=== PATIENT | male | born 1965 | race Caucasian/White ===

== ENCOUNTER 2024-09-14 02:05 | Emergency (ER) | payer MEDICAID, SELFPAY ==
[2024-09-14 02:06] VITALS: BMI 29.8
[2024-09-14 02:14] VITALS: BP 123/74; PULSE 90; RESP 19; TEMP 37.2; O2SAT 98
[2024-09-14] MEDS: HYDROcodone/APAP 5/325 TABLET 1 TAB PO (02:29)
[2024-09-14] MEDS: DEXAMETHASONE SOD PHOS INJ 10 MG/ML VIAL PO (02:30)
--- NOTE | 2024-09-14 05:48 | PD.EDUPEX ---
Upper Extremity Injury RME/HPI General Chief Complaint: General Adult/Misc Complain Stated Complaint: RIGHT HAND /ARM PAIN Time Seen by Provider: 09/14/24 02:18 Arrival date/time: 09/14/24 02:05 58M with A-fib, HFrEF 35-40%, CABG, CAD, DM2, low back pain and stage 4 CKD presents to ED with several weeks of R elbow swelling and pain w/o fall/trauma. Limitations: no limitations Related Data Home Medications ?Medication ?Instructions ?Recorded ?Confirmed linagliptin 5 mg tablet (Tradjenta) 5 mg PO QDAY 10/19/20 07/04/23 clopidogrel 75 mg tablet 75 mg PO QDAY 07/04/23 09/19/23 gabapentin 300 mg capsule 300 mg PO TID 07/04/23 09/19/23 gemfibrozil 600 mg tablet 600 mg PO BID 07/04/23 09/19/23 hydralazine 25 mg tablet 25 mg PO TID 07/04/23 09/19/23 isosorbide dinitrate 5 mg tablet 5 mg PO BID 07/04/23 09/19/23 tamsulosin 0.4 mg capsule 0.4 mg PO QDAY 07/04/23 09/19/23 apixaban 5 mg tablet (Eliquis) 5 mg PO BID 09/19/23 09/19/23 Previous Rx's ?Medication ?Instructions ?Recorded aspirin 81 mg tablet,delayed 81 mg PO QDAY #30 tabs 12/23/18 release (Aspir-Low) hydrocodone 10 mg-acetaminophen 1 tab PO Q6H PRN pain #20 tabs 04/04/19 325 mg tablet ([place]) cyclobenzaprine 5 mg tablet 5 mg PO QHSPRN PRN muscle spasm 09/13/23 #10 tabs lidocaine 5 % topical patch 1 patch topical QDAY #15 ea 09/13/23 (Lidoderm) insulin detemir U-100 100 unit/mL 30 unit (0.3 mL) subcut QDAY 30 09/23/23 (3 mL) subcutaneous pen (Levemir days #9 mL FlexPen) insulin lispro 100 unit/mL 8 unit (0.08 mL) subcut TIDWM #15 09/24/23 subcutaneous pen (Humalog KwikPen mL (U-100) Insulin) furosemide 40 mg tablet (Lasix) 40 mg PO QAM #3 tabs 02/18/24 hydrocodone 5 mg-acetaminophen 325 1 tab PO BID PRN pain #7 tabs 04/11/24 mg tablet Allergies Allergy/AdvReac Type Severity Reaction Status Date / Time clonidine Allergy Severe SWELLING Verified 07/02/23 17:51 nut - unspecified Allergy Severe Swelling Verified 02/07/23 18:35 Review of Systems Review of Systems Systems Reviewed: All systems reviewed, normal except as documented Constitutional Constitutional: Reports system reviewed and no additional complaints, except as documented, Denies fever(s) and Denies headache(s) ENT Ears, Nose, Mouth, and Throat: Denies disequilibrium and Denies headache(s) Cardiovascular Cardiovascular: Reports system reviewed and no additional complaints, except as documented, Denies chest pain and Denies dyspnea Respiratory Respiratory: Reports system reviewed and no additional complaints, except as documented, Denies cough and Denies dyspnea Gastrointestinal Gastrointestinal: Reports system reviewed and no additional complaints, except as documented, Denies abdominal pain, Denies nausea and Denies vomiting Musculoskeletal Musculoskeletal: Reports as per HPI, Reports arthralgias and Reports joint swelling Neurologic Neurologic: Reports system reviewed and no additional complaints, except as documented, Denies confusion, Denies disequilibrium and Denies headache(s) Psychiatric Psychiatric: Denies confusion Past Medical History Past Medical History NEUROLOGIC: Positive Meningitis; Negative Neurological Disorders or Seizures CARDIAC: Positive Cardiac Disorders, Myocardial Infarction, Atrial Fibrillation, Coronary Artery Disease, Hypercholesterolemia and Hypertension; Negative Congestive Heart Failure RESPIRATORY: Positive Pneumonia; Negative Chronic Obstructive Pulmonary Disease (COPD) or Asthma GASTROINTESTINAL: Positive Gastrointestinal Bleed; Negative Gastrointestinal Disorders GENITOURINARY: Positive Genitourinary Disorders and Kidney Stones; Negative Renal Disease MUSCULOSKELETAL: Positive Musculoskeletal Disorders, Degenerative Disk Disease and Osteomyelitis ENDOCRINE: Positive Endocrine Disorders and Diabetes Mellitus Type 2; Negative Diabetes Mellitus Type 1 HEMATOLOGIC: Negative Blood Disorders or Sickle Cell Disease OTHER HISTORY: Positive MRSA; Negative Hospitalization, Autoimmune Disease, Down Syndrome, Developmental Delay, Shingles, Falls, Blood Transfusions, Blood Transfusion Reaction or Anesthesia Reactions Family History FAMILY HISTORY: Positive Family Cancer; Negative Family Cardiac Disorders Surgical History SURGICAL: Positive Cardiac Surgery, Open Heart Surgery, Coronary Artery Bypass Graft and Pacemaker (RIGHT CHEST) Social History SMOKING STATUS: Never smoker SECOND HAND EXPOSURE: Yes SUBSTANCE USE: marijuana, crack/cocaine and methamphetamine ED Exam General Limitations: Present no limitations General appearance: Present alert and in no apparent distress Head Head exam: Present atraumatic Eye Eye exam: Present normal appearance, PERRL and EOMI ENT ENT exam: Present normal exam, normal oropharynx and mucous membranes moist Neck Neck exam: Present normal inspection, full ROM and trachea midline Chest Chest inspection: Present normal inspection and symmetric chest wall rise Respiratory Respiratory exam: Present normal lung sounds bilaterally Cardiovascular Cardiovascular exam: Present regular rate, normal rhythm and normal heart sounds Abdominal Exam Abdominal exam: Present soft and normal bowel sounds Extremities Exam Extremities exam: Present full ROM Expanded Upper Extremity Exam Elbow exam: Present full ROM (R) and swelling Back Exam Back exam: Present normal inspection and full ROM Neurological Exam Neurological exam: Present alert, oriented X3 and CN II-XII intact Psychiatric Psychiatric exam: Present normal affect and normal mood Skin Skin exam: Present warm, dry, intact and normal color Course Quality Measures none Orders Category Date Time Status william wrap [Splint / Immobilizer] STAT Care 09/14/24 02:19 Completed Dexamethasone Inj [Decadron Inj] Med 09/14/24 02:19 Discontinued 10 mg PO X1 ONE HYDROcodone*/APAP 5/325 [[place] 5/325] Med 09/14/24 02:19 Discontinued 1 tab PO X1 ONE Vital Signs Vital signs: Vital Signs Temperature 99.0 F 09/14/24 02:14 Pulse Rate 90 09/14/24 02:14 Respiratory Rate 19 09/14/24 02:14 Blood Pressure 123/74 09/14/24 02:14 Pulse Oximetry (%) 98 09/14/24 02:14 Oxygen Delivery Method Room Air 09/14/24 02:14 O2 at 98% on RA and WNLs Extremity Injury MDM Narrative MDM Narrative:: 58M with A-fib, HFrEF 35-40%, CABG, CAD, DM2, low back pain and stage 4 CKD presents to ED with several weeks of R elbow swelling and pain w/o fall/trauma. Physical exam reveals fluid-filled sac around R elbow. ROM intact, but painful. No redness. Patient is afebrile, calm, and alert. Likely elbow bursitis. Given WILLIAM, meds, and licensed professional counselor. Patient data External records reviewed:: [facility] previous records Clinical information provided by:: patient Social determinants that could affect healthcare access:: none Patient has the following chronic illnesses:: A-fib, HFrEF 35-40%, CABG, CAD, DM2, low back pain and stage 4 CKD How is presenting disease/condition affected by chronic disease/condition?: exacerbated by Evaluation data The following diagnostics were reviewed and interpreted by me:: other (specify) (none) Lab and/or radiology exams considered but not ordered:: not ordered Interpretation Summary: n/a Medications / Prescriptions Medications or Prescriptions considered but not ordered:: ordered Medication administrations:: Medication Administration History Discontinued Medications Hydrocodone Bitart/Acetaminophen (Hydrocodone/Apap 5/325 Tablet) 1 tab PO X1 ONE Stop: 09/14/24 02:20 Last Admin: 09/14/24 02:29 Dose: 1 tab Documented By: CVL Dexamethasone Sodium Phosphate (Dexamethasone Sod Phos Inj 10 Mg/Ml Vial) 10 mg PO X1 ONE Stop: 09/14/24 02:20 Last Admin: 09/14/24 02:30 Dose: 10 mg Documented By: CVL above Consultations Consultation(s) initiated? (list below): No Diagnosis Upper Extremity Injury Differential Diagnosis: sprain and strain of wrist, fracture of wrist, finger sprain, dislocation of finger, Colles' fracture, fracture of hand, dislocation of shoulder, fracture of humerus, fracture of clavicle and other (elbow bursitis) Most likely diagnosis given after review of the tests above:: elbow bursitis Admission Indicated Admission indicated?: not indicated Admission Request Was there a request for admission?: No Disposition Plan Disposition Plan: Discharge Discharge Attestation Discharge Attestation: The patient and all family members were given an opportunity to ask questions and understood the discharge instructions. Discharge instructions specifically effects, indications for sooner follow up or return to the emergency department, and the expected course of current diagnosis. Patient condition: Stable Discharge Plan Plan Patient Disposition: HOME (Self Care) Disposition Comment: Stable Prescriptions/Referrals Prescriptions/Med Rec: No Action hydrocodone-acetaminophen [[place]] 10-325 mg tablet 1 tab PO Q6H MDD 4g Acetaminophen PRN (Reason: pain) Qty: 20 0RF Tradjenta 5 mg Tablet 5 mg PO QDAY aspirin [Aspir-Low] 81 mg Tablet,Delayed Release (Dr/Ec) 81 mg PO QDAY Qty: 30 0RF gabapentin 300 mg capsule 300 mg PO TID Patient Comments: TAKE 1 CAPSULE BY MOUTH THREE TIMES A DAY FOR 30 DAYS hydralazine 25 mg tablet 25 mg PO TID Patient Comments: TAKE 1 TABLET BY MOUTH THREE TIMES A DAY WITH FOOD FOR 30 DAYS isosorbide dinitrate 5 mg tablet 5 mg PO BID Patient Comments: TAKE 1 TABLET BY MOUTH TWICE A DAY FOR 30 DAYS tamsulosin 0.4 mg capsule 0.4 mg PO QDAY Patient Comments: TAKE 1 CAPSULE BY MOUTH EVERY DAY FOR 30 DAYS gemfibrozil 600 mg tablet 600 mg PO BID Patient Comments: TAKE 1 TABLET BY MOUTH TWICE A DAY clopidogrel 75 mg tablet 75 mg PO QDAY Patient Comments: TAKE 1 TABLET BY MOUTH EVERY DAY FOR 30 DAYS lidocaine [Lidoderm] 5 % adhesive patch,medicated 1 patch topical QDAY Qty: 15 0RF Rx Instructions: leave on most painful area for up to 12 hrs cyclobenzaprine 5 mg tablet 5 mg PO QHSPRN PRN (Reason: muscle spasm) Qty: 10 0RF Eliquis 5 mg Tablet 5 mg PO BID Levemir FlexPen 100 unit/mL (3 mL) insulin pen 30 unit SUBCUT QDAY 30 Days Qty: 9 0RF Patient Comments: INJECT 20 UNITS SUBCUTANEOUSLY ONCE A DAY insulin lispro [Humalog KwikPen Insulin] 100 unit/mL insulin pen 8 unit subcut TIDWM Qty: 15 0RF furosemide [Lasix] 40 mg tablet 40 mg PO QAM Qty: 3 0RF hydrocodone-acetaminophen 5-325 mg tablet 1 tab PO BID MDD 2 PRN (Reason: pain) Qty: 7 0RF Problem List Clinical Impression: Bursitis of elbow Patient/Caregiver Discharge Instructions Education Materials: ED Bursitis Additional Instructions: Please follow-up with PCP within 24-48 hours and return immediately if symptoms worsen. If problem persists, recommend outpatient PT and/or MRI follow-up. In the meantime, rest, use ice/heat, and/or compression. Print Language: Iranian Stand Alone Forms: Patient Portal Info Letter PA/PHOTOGRAPHIC EQUIPMENT ASSEMBLER Supervising Physician PA/ADRY Supervising Physician: Dr. Wiggins
== END 2024-09-14 02:35 | disposition home or self-care (01) ==
PROVIDERS: Emergency Provider Emergency Medicine; PCP Family Medicine
DX: M70.31 Other bursitis of elbow, right elbow (principal)
CPT/HCPCS: 99283; J1100; A9270

== ENCOUNTER 2024-09-30 01:15 | Emergency (ER) | payer MEDICAID, SELFPAY ==
[2024-09-30 01:16] VITALS: BMI 26.9
[2024-09-30 01:33] VITALS: BP 129/89; PULSE 95; RESP 18; TEMP 36.8; O2SAT 97
--- NOTE | 2024-09-30 01:44 | PD.EDCHEST ---
ED Chest Pain RME/HPI General Chief Complaint: Chest Pain Stated Complaint: CHEST PAIN X5DAYS Time Seen by Provider: 09/30/24 01:34 Arrival date/time: 09/30/24 01:15 RME / HPI RME / HPI narrative: Dr. Wahl?s Main ED Evaluation: 58yo male with A-fib with RVR, HFrEF 35 to 40% s/p ICD placement, cardiac arrest, coronary artery disease s/p CABG, DMII, CKD, BPH, HTN presents to the ED for a chief complaint of chest pain x 1 week. Patient states his pain has been constant, describing it as stabbing and pressure in nature. Patient states his pain worsens when he takes a deep breath. Patient reports an associated productive cough, chills, runny nose, and fatigue. He denies any fever, sweating or any other associated symptoms. He states his granddaughter at home is sick. He did not get his flu shot this year. He is a former tobacco smoker, reporting he quit in 2019. Related Data Home Medications ?Medication ?Instructions ?Recorded ?Confirmed linagliptin 5 mg tablet (Tradjenta) 5 mg PO QDAY 10/19/20 07/04/23 clopidogrel 75 mg tablet 75 mg PO QDAY 07/04/23 09/19/23 gabapentin 300 mg capsule 300 mg PO TID 07/04/23 09/19/23 gemfibrozil 600 mg tablet 600 mg PO BID 07/04/23 09/19/23 hydralazine 25 mg tablet 25 mg PO TID 07/04/23 09/19/23 isosorbide dinitrate 5 mg tablet 5 mg PO BID 07/04/23 09/19/23 tamsulosin 0.4 mg capsule 0.4 mg PO QDAY 07/04/23 09/19/23 apixaban 5 mg tablet (Eliquis) 5 mg PO BID 09/19/23 09/19/23 Previous Rx's ?Medication ?Instructions ?Recorded aspirin 81 mg tablet,delayed 81 mg PO QDAY #30 tabs 12/23/18 release (Aspir-Low) hydrocodone 10 mg-acetaminophen 1 tab PO Q6H PRN pain #20 tabs 04/04/19 325 mg tablet ([place]) cyclobenzaprine 5 mg tablet 5 mg PO QHSPRN PRN muscle spasm 09/13/23 #10 tabs lidocaine 5 % topical patch 1 patch topical QDAY #15 ea 09/13/23 (Lidoderm) insulin detemir U-100 100 unit/mL 30 unit (0.3 mL) subcut QDAY 30 09/23/23 (3 mL) subcutaneous pen (Levemir days #9 mL FlexPen) insulin lispro 100 unit/mL 8 unit (0.08 mL) subcut TIDWM #15 09/24/23 subcutaneous pen (Humalog KwikPen mL (U-100) Insulin) furosemide 40 mg tablet (Lasix) 40 mg PO QAM #3 tabs 02/18/24 hydrocodone 5 mg-acetaminophen 325 1 tab PO BID PRN pain #7 tabs 04/11/24 mg tablet amoxicillin 875 mg-potassium 1 tab PO Q12H #10 tabs 09/30/24 clavulanate 125 mg tablet Allergies Allergy/AdvReac Type Severity Reaction Status Date / Time clonidine Allergy Severe SWELLING Verified 09/30/24 01:20 nut - unspecified Allergy Severe Swelling Verified 09/30/24 01:20 Review of Systems Review of Systems Systems Reviewed: All systems reviewed, normal except as documented Narrative Review of Systems: Gen: No fever, + chills, no weight loss, + fatigue EYES: No discharge, no visual changes, no pain HEENT: No ear pain, no congestion, no sore throat, + runny nose PULM: No shortness of breath, no cough, no congestion CV: + chest pain, no dyspnea on exertion, no palpitations GI: No nausea, no vomiting, no diarrhea, no pain, no constipation : No frequency, no urgency, no dysuria Musc/skel: No joint pain, no back pain Skin: No rash. Warm and dry. Psyc: No hallucinations, no depression Heme/Lymph: No easy bleeding or bruising tendencies Neuro: No weakness, no headache ED Exam Narrative Physical exam: GENERAL APPEARANCE: AxOx4, generally well-appearing, no acute distress. HEENT: NC, AT. MMM. EOMI, clear conjunctiva, oropharynx clear. NECK: Supple without lymphadenopathy. No stiffness or restricted ROM. HEART: Normal rate and regular rhythm, normal S1/S1, no m/r/g LUNGS: CTAB, moving air well. No crackles or wheezes are heard. ABDOMEN: Soft, nontender, nondistended with good bowel sounds heard. BACK: No midline C/T/L spine pain or deformity, No CVAT, no obvious deformity. EXTREMITIES: Without cyanosis, clubbing or edema. MUSCULOSKELETAL: FROM of all major joints, no chest tenderness NEUROLOGICAL: Grossly nonfocal. Alert and oriented, moving all 4 extremities. CN not formally tested but appear grossly intact. Observed to ambulate with normal gait. Skin: Warm and dry without any rash. Course Course Course Narrative: CXR is ordered for determining the etiology of chest pain. Quality Measures none Orders Category Date Time Status EKG (ED ONLY) *Do not use* NOW Care 09/30/24 02:10 Completed EKG (ED Only) Stat Exams 09/30/24 02:10 Draft XR chest 2V Stat Exams 09/30/24 02:10 Taken CBC Stat Lab 09/30/24 02:39 Completed CMP [Comprehensive Metabolic Panel] Stat Lab 09/30/24 02:39 Completed Troponin I Stat Lab 09/30/24 02:39 Completed Troponin I Stat Lab 09/30/24 04:52 Completed Vital Signs Vital signs: Vital Signs Temperature 98.3 F 09/30/24 01:33 Pulse Rate 95 09/30/24 01:33 Respiratory Rate 18 09/30/24 01:33 Blood Pressure 129/89 H 09/30/24 01:33 Pulse Oximetry (%) 97 09/30/24 01:33 Oxygen Delivery Method Room Air 09/30/24 01:33 Pulse ox is 97% on room air, which is normal according to my interpretation. Chest Pain MDM Narrative MDM Narrative:: Scribe Attestation: 09/30/24 Ena Vincent am scribing for and in the presence of Dr. Wahl. Patient data External records reviewed:: [facility] previous records (Per chart review, patient was seen here on 02/18/24 for CHF.) Clinical information provided by:: patient Social determinants that could affect healthcare access:: substance use (history of tobacco use, quit in 2019) Patient has the following chronic illnesses:: A-fib with RVR, HFrEF 35 to 40% s/p ICD placement, cardiac arrest, coronary artery disease s/p CABG, DMII, CKD, BPH, HTN How is presenting disease/condition affected by chronic disease/condition?: exacerbated by Evaluation data The following diagnostics were reviewed and interpreted by me:: lab results, radiology exam(s) and EKG tracing(s) Lab and/or radiology exams considered but not ordered:: none Interpretation Summary: CBC is normal, Glucose is 290, Creatinine is elevated at 1.9 (which is chronic), initial and repeat troponins are normal, according to my interpretation. CXR shows an early left lower lobe infiltrate, pacemaker in place, no bony abnormalities, no other acute cardiopulmonary findings, according to my interpretation. EKG done at 0221, aFib, rate of 96, widened QRS, IVCD pattern, no STEMI, according to my interpretation. Medications / Prescriptions Medications or Prescriptions considered but not ordered:: none Medication administrations:: see above, if any Consultations Consultation(s) initiated? (list below): No Diagnosis Chest Pain Differential Diagnosis: pneumothorax and other (pneumonia, pleurisy, acute bronchitis) Most likely diagnosis given after review of the tests above:: see below Admission Indicated Admission indicated?: not indicated Explain why admission is indicated or not indicated:: Admission criteria not met. Admission Request Was there a request for admission?: No Disposition Plan Disposition Plan: Discharge Discharge Attestation Discharge Attestation: The patient and all family members were given an opportunity to ask questions and understood the discharge instructions. Discharge instructions specifically effects, indications for sooner follow up or return to the emergency department, and the expected course of current diagnosis. Patient condition: Stable Discharge Plan Plan Patient Disposition: HOME (Self Care) Prescriptions/Referrals Prescriptions/Med Rec: New amoxicillin-pot clavulanate 875-125 mg tablet 1 tab PO Q12H Qty: 10 0RF No Action hydrocodone-acetaminophen [[place]] 10-325 mg tablet 1 tab PO Q6H MDD 4g Acetaminophen PRN (Reason: pain) Qty: 20 0RF Tradjenta 5 mg Tablet 5 mg PO QDAY aspirin [Aspir-Low] 81 mg Tablet,Delayed Release (Dr/Ec) 81 mg PO QDAY Qty: 30 0RF gabapentin 300 mg capsule 300 mg PO TID Patient Comments: TAKE 1 CAPSULE BY MOUTH THREE TIMES A DAY FOR 30 DAYS hydralazine 25 mg tablet 25 mg PO TID Patient Comments: TAKE 1 TABLET BY MOUTH THREE TIMES A DAY WITH FOOD FOR 30 DAYS isosorbide dinitrate 5 mg tablet 5 mg PO BID Patient Comments: TAKE 1 TABLET BY MOUTH TWICE A DAY FOR 30 DAYS tamsulosin 0.4 mg capsule 0.4 mg PO QDAY Patient Comments: TAKE 1 CAPSULE BY MOUTH EVERY DAY FOR 30 DAYS gemfibrozil 600 mg tablet 600 mg PO BID Patient Comments: TAKE 1 TABLET BY MOUTH TWICE A DAY clopidogrel 75 mg tablet 75 mg PO QDAY Patient Comments: TAKE 1 TABLET BY MOUTH EVERY DAY FOR 30 DAYS lidocaine [Lidoderm] 5 % adhesive patch,medicated 1 patch topical QDAY Qty: 15 0RF Rx Instructions: leave on most painful area for up to 12 hrs cyclobenzaprine 5 mg tablet 5 mg PO QHSPRN PRN (Reason: muscle spasm) Qty: 10 0RF Eliquis 5 mg Tablet 5 mg PO BID Levemir FlexPen 100 unit/mL (3 mL) insulin pen 30 unit SUBCUT QDAY 30 Days Qty: 9 0RF Patient Comments: INJECT 20 UNITS SUBCUTANEOUSLY ONCE A DAY insulin lispro [Humalog KwikPen Insulin] 100 unit/mL insulin pen 8 unit subcut TIDWM Qty: 15 0RF furosemide [Lasix] 40 mg tablet 40 mg PO QAM Qty: 3 0RF hydrocodone-acetaminophen 5-325 mg tablet 1 tab PO BID MDD 2 PRN (Reason: pain) Qty: 7 0RF Referrals: Pacheco (PCP),MD Rancho [Primary Care Provider] - In 1 week Problem List Clinical Impression: Pneumonia, Chest pain Patient/Caregiver Discharge Instructions Education Materials: ED Chest Pain, Uncertain Cause, ED Pneumonia (Adult) Additional Instructions: Follow-up with your primary care doctor in 5 to 7 days if symptoms or not improving. You can return to the emergency department sooner if symptoms worsen or if you notice any new, concerning issues. Print Language: Tamazight Stand Alone Forms: [employer]i Award Info., Patient Portal Info Letter
--- NOTE | 2024-09-30 01:56 | PC.NURSE ---
verified with provider if ekg was needed. per ER provider no ekg was indicated at this time
--- NOTE | 2024-09-30 02:10 | XR_ITS ---
Examination: PA lateral chest 2 views Technique: Upright PA lateral chest 2 views Exam date and time: September 30, 2024 0212 hrs. Comparison February 18, 2024 Indications: Chest pain beginning 5 days ago. Findings: Mild enlargement cardiac contour. CABG. Mild vascular congestion. No lobar pneumonia or pulmonary edema. A stable position cardiac leads Impression: Mild enlargement cardiac contour Mild vascular congestion
--- NOTE | 2024-09-30 02:10 | EKG_ITS ---
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1965 Requested By: Tejinder Wahl Order Number: [id number] Reading MD: Tejinder Wahl Measurements Intervals [place] Rate: 96 P: [place]: QRS: 114 QRSD: 174 T: -37 QT: 411 QTc: 520 Interpretive Statements ATRIAL FIBRILLATION WITH ABERRANT CONDUCTION OR VENTRICULAR PREMATURE COMPLEXES MARKED RIGHT AXIS DEVIATION [QRS AXIS > 100] RIGHT BUNDLE BRANCH BLOCK AND POSSIBLE RIGHT VENTRICULAR HYPERTROPHY [RBBB, 1.5 mV R IN V1, RAD] PROBABLE SEPTAL MYOCARDIAL INFARCTION , OF INDETERMINATE AGE [35 ms Q WAVE IN V1/V2] ST DEVIATION AND MARKED T-WAVE ABNORMALITY, CONSIDER ANTERIOR ISCHEMIA [-0.5+ mV T WAVE IN V3/V4] Compared to ECG 07/02/2023 18:03:37 Right-axis deviation now present Myocardial infarct finding now present T-wave abnormality now present Possible ischemia now present Left-axis deviation no longer present Intraventricular conduction delay no longer present ST (T wave) deviation no longer present /store/S0/[id number].pdf
[2024-09-30 03:19] LABS: Basophils # (Auto) 0.1 Thou/mm3 (0.0-0.2); Basophils % (Auto) 1 % (0-2.5); Eosinophils # (Auto) 0.3 Thou/mm3 (0.0-0.5); Eosinophils % (Auto) 2 % (0-10); Hematocrit 39.5 % (41.0-53.0); Hemoglobin 13.7 g/dL (13.5-16.0); Immature Granulocytes % (Auto) 0 % (0-0); Immature Granulocytes Auto 0.02 Thou/mm3 (0.00-0.00); Lymphocytes # (Auto) 2.4 Thou/mm3 (1.0-4.8); Lymphocytes % (Auto) 23 % (10-50); Mean Corpuscular HGB Conc 34.7 g/dl (31.0-37.0); Mean Corpuscular Hemoglobin 31.3 pg (25.0-35.0); Mean Corpuscular Volume 90 fL (80-100); Monocytes # (Auto) 0.8 Thou/mm3 (0.0-0.8); Monocytes % (Auto) 8 % (0-12); Neutrophils # (Auto) 7.1 Thou/mm3 (1.8-7.7); Neutrophils % (Auto) 66 % (37-80); Nucleated Red Blood Cell % 0 /100 WBC (0); Platelet Count 241 Thou/mm3 (140-440); RDW Standard Deviation 43.2 fL (35.1-43.9); Red Blood Count 4.38 Miln/mm3 (4.50-5.90); White Blood Count 10.7 Thou/mm3 (3.8-10.6)
[2024-09-30 03:42] LABS: Alanine Aminotransferase 10 U/L (10-49); Albumin, Serum 4.5 gm/dL (3.5-5.0); Albumin/Globulin Ratio 1.2 (1.2-2.2); Alkaline Phosphatase 110 U/L (46-116); Anion Gap 10 (7-16); BUN/Creatinine Ratio 20 Ratio (12-20); Bilirubin,Total 0.9 mg/dL (0.3-1.2); Blood Urea Nitrogen 38 mg/dL (9-23); Carbon Dioxide 24.9 mMol/L (20.0-31.0); Chloride 103 mMol/L (98-107); Creatinine (Component) 1.9 mg/dL (0.6-1.3); Estimated Creatinine Clearance 50.5 mL/min (>60); Globulin 3.9 gm/dL (2.3-3.5); Glucose 200 mg/dL (74-106); Osmolality,Calculated 290 (275-295); Potassium 4.3 mMol/L (3.4-5.1); Sodium 138 mMol/L (136-145); Total Protein 8.4 gm/dL (5.7-8.2); Troponin I < 0.020 ng/mL (0.0-0.045); eGFR 41 See Note
[2024-09-30 04:03] LABS: Aspartate Amino Transferase < 8 U/L (0-34)
== END 2024-09-30 05:29 | disposition home or self-care (01) ==
PROVIDERS: Emergency Provider Emergency Medicine; PCP Family Medicine
DX: J18.9 Pneumonia, unspecified organism (principal); E11.22 Type 2 diabetes mellitus with diabetic chronic kidney disease; N18.9 Chronic kidney disease, unspecified; N40.0 Benign prostatic hyperplasia without lower urinary tract symptoms; Z95.1 Presence of aortocoronary bypass graft; Z87.891 Personal history of nicotine dependence; Z95.810 Presence of automatic (implantable) cardiac defibrillator; I13.0 Hypertensive heart and chronic kidney disease with heart failure and stage 1 through stage 4 chronic kidney disease, or unspecified chronic kidney disease; I50.20 Unspecified systolic (congestive) heart failure; I48.91 Unspecified atrial fibrillation; Z86.74 Personal history of sudden cardiac arrest; I25.10 Atherosclerotic heart disease of native coronary artery without angina pectoris
CPT/HCPCS: 36415; 71046; 80053; 84484; 85025; 93005; 99283

== ENCOUNTER 2024-11-25 19:16 | Emergency (ER) | payer MEDICAID, SELFPAY ==
--- NOTE | 2024-11-25 19:19 | XR_ITS ---
Examination: AP chest single view Technique: AP semiupright portable chest single view Exam date and time: November 25, 2024 1839 hrs. Comparison September 30, 2024 Indications: Onset chest pain today. Findings: Mild prominence left ventricle CABG Cardiac leads satisfactory position No lobar or pulmonary edema Impression: No lobar or pulmonary edema
--- NOTE | 2024-11-25 19:19 | EKG_ITS ---
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1965 Requested By: Timothy You Order Number: [id number] Reading MD: Timothy You Measurements Intervals [place] Rate: 65 P: 78 NE: 162 QRS: 218 QRSD: 176 T: 50 QT: 452 QTc: 470 Interpretive Statements ELECTRONIC ATRIAL PACEMAKER ELECTRONIC VENTRICULAR PACEMAKER ABNORMAL RHYTHM ECG Compared to ECG 09/30/2024 02:21:41 Atrial fibrillation no longer present Ventricular premature complex(es) no longer present Aberrant conduction of supraventricular beat(s) no longer present Right-axis deviation no longer present Myocardial infarct finding no longer present T-wave abnormality no longer present Possible ischemia no longer present /store/S0/[id number].pdf
--- NOTE | 2024-11-25 19:22 | PD.EDADULT ---
ED General RME/HPI General Chief complaint: Dizziness Stated complaint: INTERNAL DFIB Time Seen by Provider: 11/25/24 19:44 Arrival date/time: 11/25/24 19:16 RME / HPI RME / HPI narrative: Patient is 59 years old male with past medical history of A-fib, HFrEF 35 to 40% s/p ICD placement, hx of cardiac arrest, coronary artery disease s/p CABG, DM type II, CKD, BPH, HTN presented to the ED from home after episode of defibrillation. He reports he was feeling completely fine when his pacemaker shocked him, and him and family got scared and called EMS. He reports feeling completely normal prior to the defibrillation event. He denies any palpitations, chest pain, shortness of breath, abdominal pain, nausea, vomiting, diarrhea. He reports he became diaphoretic after shock was delivered but nothing else and now is back to baseline. He denies recent travel or sick contacts. Related Data Home Medications ?Medication ?Instructions ?Recorded ?Confirmed linagliptin 5 mg tablet (Tradjenta) 5 mg PO QDAY 10/19/20 07/04/23 clopidogrel 75 mg tablet 75 mg PO QDAY 07/04/23 09/19/23 gabapentin 300 mg capsule 300 mg PO TID 07/04/23 09/19/23 gemfibrozil 600 mg tablet 600 mg PO BID 07/04/23 09/19/23 hydralazine 25 mg tablet 25 mg PO TID 07/04/23 09/19/23 isosorbide dinitrate 5 mg tablet 5 mg PO BID 07/04/23 09/19/23 tamsulosin 0.4 mg capsule 0.4 mg PO QDAY 07/04/23 09/19/23 apixaban 5 mg tablet (Eliquis) 5 mg PO BID 09/19/23 09/19/23 Previous Rx's ?Medication ?Instructions ?Recorded aspirin 81 mg tablet,delayed 81 mg PO QDAY #30 tabs 12/23/18 release (Aspir-Low) hydrocodone 10 mg-acetaminophen 1 tab PO Q6H PRN pain #20 tabs 04/04/19 325 mg tablet (Dobson) cyclobenzaprine 5 mg tablet 5 mg PO QHSPRN PRN muscle spasm 09/13/23 #10 tabs lidocaine 5 % topical patch 1 patch topical QDAY #15 ea 09/13/23 (Lidoderm) insulin detemir U-100 100 unit/mL 30 unit (0.3 mL) subcut QDAY 30 09/23/23 (3 mL) subcutaneous pen (Levemir days #9 mL FlexPen) insulin lispro 100 unit/mL 8 unit (0.08 mL) subcut TIDWM #15 09/24/23 subcutaneous pen (Humalog KwikPen mL (U-100) Insulin) furosemide 40 mg tablet (Lasix) 40 mg PO QAM #3 tabs 02/18/24 hydrocodone 5 mg-acetaminophen 325 1 tab PO BID PRN pain #7 tabs 04/11/24 mg tablet amoxicillin 875 mg-potassium 1 tab PO Q12H #10 tabs 09/30/24 clavulanate 125 mg tablet Allergies Allergy/AdvReac Type Severity Reaction Status Date / Time clonidine Allergy Severe SWELLING Verified 09/30/24 01:20 nut - unspecified Allergy Severe Swelling Verified 09/30/24 01:20 Review of Systems Review of Systems Systems Reviewed: All systems reviewed, normal except as documented ED Exam Narrative Physical exam: Gen: Well-developed and well-nourished male. HEENT: NCAT, PERRLA, EOMI, MMM, anicteric conjunctivae. CVS: normal S1 and S2. RRR. No M/R/G. Pacemaker in right upper chest. Well healed scar from old pacemaker on the left. Resp: CTA B/L. No rhonchi, rales, crackles or wheezing. Abd: soft, non-tender, non-distended. BS+ in all 4 quadrants. MSK: Good ROM in BUE & BLE. No edema or rash. Neuro: CN II-XII grossly intact. Strength 5/5 in BUE & BLE. Alert and oriented x3. Psych: appropriate mood and affect. Course Course Course Narrative: 2300: pacemaker interrogation: 11/25/2024 at 17:41 ventricular fibrillation of 28 sec, shock delivered 40J, converted to sinus rhythm. 0300: CTA negative for PE. Quality Measures none Orders Category Date Time Status Assess Pacemaker NOW Care 11/25/24 20:11 Active Bedside COVID-19 Antigen Test NOW Care 11/25/24 19:23 Active Bedside Influenza A&B Antigen Test NOW Care 11/25/24 19:[address] Screening NOW Care 11/25/24 23:16 Active EKG (ED ONLY) *Do not use* NOW Care 11/25/24 19:[address] angio chest Stat Exams 11/25/24 23:16 Taken CXRP [XR chest 1V portable] Stat Exams 11/25/24 19:19 Completed EKG (ED Only) Stat Exams 11/25/24 19:19 Draft BNP [B-Type Natriuretic Peptide] Stat Lab 11/25/24 19:30 Completed CBC Stat Lab 11/25/24 19:30 Completed CMP [Comprehensive Metabolic Panel] Stat Lab 11/25/24 19:30 Completed D-Dimer Stat Lab 11/25/24 19:30 Completed Drug Screen,Urine Stat Lab 11/25/24 19:20 Ordered Lactate (Lactic Acid) Stat Lab 11/25/24 19:30 Completed Lactic Acid, 3 HR Stat Lab 11/25/24 23:04 Completed Magnesium Stat Lab 11/25/24 19:30 Completed Troponin I Stat Lab 11/25/24 19:30 Completed Urinalysis Stat Lab 11/25/24 19:20 Ordered Vital Signs Vital signs: Vital Signs Temperature 98.4 F 11/25/24 19:33 Pulse Rate 74 11/25/24 19:33 Respiratory Rate 17 11/25/24 19:33 Blood Pressure 149/97 H 11/25/24 19:33 Pulse Oximetry (%) 96 11/25/24 19:33 Oxygen Delivery Method Room Air 11/25/24 19:33 Procedures -ED EKG Interpretation #1: Date of EK11/25/24 Time of EK:24 Rate: 65 Interpretation: Reviewed by me EKG Impression: Atrial paced MDM Patient data External records reviewed:: [facility] previous records and EMS form Clinical information provided by:: patient and EMS Social determinants that could affect healthcare access:: none Patient has the following chronic illnesses:: A-fib, HFrEF 35 to 40% s/p ICD placement, hx of cardiac arrest, coronary artery disease s/p CABG, DM type II, CKD, BPH, HTN How is presenting disease/condition affected by chronic disease/condition?: caused by Evaluation data The following diagnostics were reviewed and interpreted by me:: lab results, radiology exam(s) and EKG tracing(s) Lab and/or radiology exams considered but not ordered:: CT chest Interpretation Summary: CKD, mild lactic acidosis, Nodular infiltrates in the right upper lobe and peribronchial thickening, which may be of inflammatory or infectious etiology. Medications Medications considered but not ordered:: aspirin, statin Medication administrations:: na Consultations Consultation(s) initiated? (list below): No Diagnosis Differential Diagnosis ED Complaint MDM: Afib, Vfib, Vtach, SVT Most likely diagnosis given after review of the tests above:: Vfib s/p defibrillation Admission Indicated Admission indicated?: not indicated Explain why admission is indicated or not indicated:: Event of Vfib s/p defibrillation by [employer], interrogation done, pacemaker works normal, will need to f/u with cardiology outpatient. Admission Request Was there a request for admission?: No Disposition Plan Disposition Plan: Discharge Discharge Attestation Discharge Attestation: The patient and all family members were given an opportunity to ask questions and understood the discharge instructions. Discharge instructions specifically effects, indications for sooner follow up or return to the emergency department, and the expected course of current diagnosis. Patient condition: Stable Medical Decision Making Differential Diagnosis Differential Diagnosis: Afib, Vfib, Vtach, SVT Lab Data 11/25/24 19:30 11/25/24 19:30 Labs: Lab Results 11/25/24 11/25/24 Range/Units 19:30 23:04 WBC 8.4 (3.8-10.6) Thou/mm3 RBC 4.52 (4.50-5.90) Miln/mm3 Hgb 13.9 (13.5-16.0) g/dL Hct 39.7 L (41.0-53.0) % MCV 88 (80-100) fL MCH 30.8 (25.0-35.0) pg MCHC 35.0 (31.0-37.0) g/dl RDW Std Deviation 41.6 (35.1-43.9) fL Plt Count 311 (140-440) Thou/mm3 Neut % (Auto) 57 (37-80) % Lymph % (Auto) 31 (10-50) % [place] % (Auto) 8 (0-12) % Eos % (Auto) 4 (0-10) % Baso % (Auto) 1 (0-2.5) % Neut # (Auto) 4.8 (1.8-7.7) Thou/mm3 Lymph # (Auto) 2.6 (1.0-4.8) Thou/mm3 [place] # (Auto) 0.7 (0.0-0.8) Thou/mm3 Eos # (Auto) 0.3 (0.0-0.5) Thou/mm3 Baso # (Auto) 0.1 (0.0-0.2) Thou/mm3 Immature Gran # (Auto) 0.03 H (0.00-0.00) Thou/mm3 Absolute Nucleated RBC 0.00 (0.00-0.00) Thou/mm3 Immature Gran % 0 (0-0) % Nucleated RBC % 0 (0) /100 WBC D-Dimer 1270 H (<600) ng/mL Sodium 137 (136-145) mMol/L Potassium 4.1 (3.4-5.1) mMol/L Chloride 101 (98-107) mMol/L Carbon Dioxide 23.5 (20.0-31.0) mMol/L Anion Gap 13 (7-16) BUN 29 H (9-23) mg/dL Creatinine 1.6 H (0.6-1.3) mg/dL Estim Creat Clear Calc 66.2 (>60) mL/min eGFR 50 L (60 - ) See Note BUN/Creatinine Ratio 18 (12-20) Ratio Glucose 168 H (74-106) mg/dL Calculated Osmolality 283 (275-295) Lactic Acid 2.6 H 2.6 H (0.4-2.0) mMol/L Calcium 9.8 (8.3-10.6) mg/dL Corrected Calcium 9.8 (8.5-10.1) mg/dL Magnesium 1.8 (1.6-2.6) mg/dL Total Bilirubin 0.5 (0.3-1.2) mg/dL AST 12 (0-34) U/L ALT 18 (10-49) U/L Alkaline Phosphatase 113 (46-116) U/L Troponin I 0.031 (0.0-0.045) ng/mL B-Natriuretic Peptide 237 H (0-100) pg/mL Total Protein 8.0 (5.7-8.2) gm/dL Albumin 4.1 (3.5-5.0) gm/dL Globulin 3.9 H (2.3-3.5) gm/dL Albumin/Globulin Ratio 1.1 L (1.2-2.2) Discharge Plan Plan Patient Disposition: HOME (Self Care) Patient condition on transfer: Stable Prescriptions/Referrals Prescriptions/Med Rec: No Action hydrocodone-acetaminophen [Dobson] 10-325 mg tablet 1 tab PO Q6H MDD 4g Acetaminophen PRN (Reason: pain) Qty: 20 0RF Tradjenta 5 mg Tablet 5 mg PO QDAY aspirin [Aspir-Low] 81 mg Tablet,Delayed Release (Dr/Ec) 81 mg PO QDAY Qty: 30 0RF gabapentin 300 mg capsule 300 mg PO TID Patient Comments: TAKE 1 CAPSULE BY MOUTH THREE TIMES A DAY FOR 30 DAYS hydralazine 25 mg tablet 25 mg PO TID Patient Comments: TAKE 1 TABLET BY MOUTH THREE TIMES A DAY WITH FOOD FOR 30 DAYS isosorbide dinitrate 5 mg tablet 5 mg PO BID Patient Comments: TAKE 1 TABLET BY MOUTH TWICE A DAY FOR 30 DAYS tamsulosin 0.4 mg capsule 0.4 mg PO QDAY Patient Comments: TAKE 1 CAPSULE BY MOUTH EVERY DAY FOR 30 DAYS gemfibrozil 600 mg tablet 600 mg PO BID Patient Comments: TAKE 1 TABLET BY MOUTH TWICE A DAY clopidogrel 75 mg tablet 75 mg PO QDAY Patient Comments: TAKE 1 TABLET BY MOUTH EVERY DAY FOR 30 DAYS lidocaine [Lidoderm] 5 % adhesive patch,medicated 1 patch topical QDAY Qty: 15 0RF Rx Instructions: leave on most painful area for up to 12 hrs cyclobenzaprine 5 mg tablet 5 mg PO QHSPRN PRN (Reason: muscle spasm) Qty: 10 0RF Eliquis 5 mg Tablet 5 mg PO BID Levemir FlexPen 100 unit/mL (3 mL) insulin pen 30 unit SUBCUT QDAY 30 Days Qty: 9 0RF Patient Comments: INJECT 20 UNITS SUBCUTANEOUSLY ONCE A DAY insulin lispro [Humalog KwikPen Insulin] 100 unit/mL insulin pen 8 unit subcut TIDWM Qty: 15 0RF furosemide [Lasix] 40 mg tablet 40 mg PO QAM Qty: 3 0RF hydrocodone-acetaminophen 5-325 mg tablet 1 tab PO BID MDD 2 PRN (Reason: pain) Qty: 7 0RF amoxicillin-pot clavulanate 875-125 mg tablet 1 tab PO Q12H Qty: 10 0RF Referrals: No Primary/Family,Physician [Primary Care Provider] - In 1 week Problem List Clinical Impression: Implantable cardioverter-defibrillator (ICD) discharge, Ventricular fibrillation Patient/Caregiver Discharge Instructions Education Materials: ED About Arrhythmias Additional Instructions: Recommendations after ER visit: -pacemaker interrogation showed you had an event of ventricular fibrillation which resolved after shock delivery. -follow up cardiology Dr. Hendrickson within 1 week. -follow up with PCP regarding CTA findings, which showed nodular infiltrates in the right upper lobe and peribronchial thickening, which may be of inflammatory or infectious etiology. -return to the ED if symptoms recur or worsen. Print Language: Tajik Stand Alone Forms: [employer] Award Info., Patient Portal Info Letter MD Attestation Attestation I, Dr. Tamez, have reviewed the history, exam, and assessment of the patient. I have evaluated the patient independently and agree with the plan of care documented by resident Timothy You. All diagnostic studies were reviewed and discussed. I confirm the diagnosis as documented by the resident. I was present during the Medical Decision Making for this patient. The patient's plan of care was created between myself and the Resident and consistent with our discussion of the patient's case.
[2024-11-25 19:23] VITALS: PULSE 97; RESP 20; BMI 28.3
[2024-11-25 19:33] VITALS: BP 149/97; PULSE 74; RESP 17; TEMP 36.9; O2SAT 96
[2024-11-25 19:48] LABS: Lactate (Lactic Acid) 2.6 mMol/L (0.4-2.0)
[2024-11-25 19:49] LABS: Basophils # (Auto) 0.1 Thou/mm3 (0.0-0.2); Basophils % (Auto) 1 % (0-2.5); Eosinophils # (Auto) 0.3 Thou/mm3 (0.0-0.5); Eosinophils % (Auto) 4 % (0-10); Hematocrit 39.7 % (41.0-53.0); Hemoglobin 13.9 g/dL (13.5-16.0); Immature Granulocytes % (Auto) 0 % (0-0); Immature Granulocytes Auto 0.03 Thou/mm3 (0.00-0.00); Lymphocytes # (Auto) 2.6 Thou/mm3 (1.0-4.8); Lymphocytes % (Auto) 31 % (10-50); Mean Corpuscular Hemoglobin 30.8 pg (25.0-35.0); Mean Corpuscular Volume 88 fL (80-100); Monocytes # (Auto) 0.7 Thou/mm3 (0.0-0.8); Monocytes % (Auto) 8 % (0-12); Neutrophils # (Auto) 4.8 Thou/mm3 (1.8-7.7); Neutrophils % (Auto) 57 % (37-80); Nucleated Red Blood Cell % 0 /100 WBC (0); Platelet Count 311 Thou/mm3 (140-440); RDW Standard Deviation 41.6 fL (35.1-43.9); Red Blood Count 4.52 Miln/mm3 (4.50-5.90); White Blood Count 8.4 Thou/mm3 (3.8-10.6)
[2024-11-25 20:06] LABS: B-Type Natriuretic Peptide 237 pg/mL (0-100)
[2024-11-25 20:08] LABS: Alanine Aminotransferase 18 U/L (10-49); Albumin, Serum 4.1 gm/dL (3.5-5.0); Albumin/Globulin Ratio 1.1 (1.2-2.2); Alkaline Phosphatase 113 U/L (46-116); Anion Gap 13 (7-16); Aspartate Amino Transferase 12 U/L (0-34); BUN/Creatinine Ratio 18 Ratio (12-20); Bilirubin,Total 0.5 mg/dL (0.3-1.2); Blood Urea Nitrogen 29 mg/dL (9-23); Calcium 9.8 mg/dL (8.3-10.6); Calcium (Corrected) 9.8 mg/dL (8.5-10.1); Carbon Dioxide 23.5 mMol/L (20.0-31.0); Chloride 101 mMol/L (98-107); Creatinine (Component) 1.6 mg/dL (0.6-1.3); Estimated Creatinine Clearance 66.2 mL/min (>60); Globulin 3.9 gm/dL (2.3-3.5); Glucose 168 mg/dL (74-106); Magnesium 1.8 mg/dL (1.6-2.6); Osmolality,Calculated 283 (275-295); Potassium 4.1 mMol/L (3.4-5.1); Sodium 137 mMol/L (136-145); Troponin I 0.031 ng/mL (0.0-0.045); eGFR 50 See Note
[2024-11-25 20:15] LABS: D-Dimer 1270 ng/mL (<600)
--- NOTE | 2024-11-25 20:41 | PC.NURSE ---
Pacemaker [employer] aug 02, 2023 serial number [id number]
--- NOTE | 2024-11-25 21:04 | PC.NURSE ---
in room using [employer] home transmitter
[2024-11-25 21:19] VITALS: BP 130/85; PULSE 72; RESP 16; O2SAT 94
--- NOTE | 2024-11-25 22:23 | PC.NURSE ---
Spoke to [employer]. franci report now
[2024-11-25 22:43] LABS: Reflex Lactate? Y
[2024-11-25 23:11] LABS: Lactic Acid, 3 HR 2.6 mMol/L (0.4-2.0)
--- NOTE | 2024-11-25 23:16 | XR_ITS ---
Examination: CTA chest with intravenous contrast 2-D reconstructions 3-D reconstructions, vascular Date and time of exam: November 26, 2024 0119 hrs. Indications: Chest pain shortness of breath today CTDI: vol (mGy) 12.2 DLP: (mGycm) 447 Technique: Multiple axial sections of the thorax have been obtained. 3 mm slice thickness, from below the hemidiaphragms to above the apices of the lungs. Mediastinal and lung density settings have been obtained. 2-D sagittal and coronal reconstructions. 3-D angiographic renderings, 3-D volume renderings, 3D post processing, vascular maximum intensity projections obtained. Contrast administered is 100 cc Isovue-370. Low dose protocols were performed. One or more of the following dose reduction techniques were used; automated exposure control, adjustment of the mA and/or KV according to patient size, use of iterative reconstruction technique. Findings: AP dimension ascending thoracic aorta 3.9 cm No pulmonary artery filling defects Mild enlargement cardiac contour Subtle opacities in the right upper lobe and both bases Mild bronchitis pattern No active disease Liver is mildly irregular contour Impression: Negative for pulmonary artery emboli Mild pneumonia in the right upper lobe and both bases
[2024-11-26 00:30] VITALS: BP 130/84; PULSE 66; RESP 17; O2SAT 94
[2024-11-26 02:05] VITALS: BP 129/81; PULSE 61; RESP 17; TEMP 36.6; O2SAT 97
--- NOTE | 2024-11-26 03:00 | PRELIM_ITS ---
CT angiogram of the chest with intravenous contrast (axial sections with sagittal and coronal reformats) November 26, 2024 0119 hours Clinical History: Rule out PE Technique:Helical axial sections with sagittal and coronal reformats of the chest were obtained with intravenous contrast. Iterative reconstruction technique was employed to reduce patient radiation exposure. 3D and MIP reconstructed images were also provided. Comparison: No prior study is available for comparison. Findings: There is no filling defect within the pulmonary artery divisions to suggest pulmonary thromboembolism. The main pulmonary arteries are dilated with the pulmonary trunk measuring 3.2 cm, which may represent pulmonary arterial hypertension. There are subcentimeter mediastinal and bilateral hilar lymph no bang. The thoracic aorta demonstrates atheromatous calcification without evidence of aneurysm. Mild cardiomegaly is seen. Coronary artery calcifications and stents are noted. There is no pericardial effusion. The lungs are hyperinflated and demonstrate bullae, predominantly in the upper lobes, suggestive of emphysema. Streaky atelectasis and scar are seen in the lungs bilaterally. There are a few scattered nodular infiltrates in the right upper lobe posteriorly. There are a few tiny calcified granulomas in the lungs bilaterally. There is mild wall thickening/cuffing of the segmental bronchi in the lungs bilaterally, predominantly in the lower lobes. There is peribronchial soft tissue thickening in bilateral lungs, consistent with chronic airways disease. No evidence of focal lung consolidation. Interstitial septal thickening is seen in the lungs bilaterally, suggestive of interstitial pulmonary edema. No evidence of pleural effusion or pneumothorax. Degenerative changes are identified in the spine. Median sternotomy wires are identified. Old bilateral rib fractures are seen. An AICD is identified in the right chest wall with its lead tips in position. The upper abdominal viscera are unremarkable to the extent visualized. Impression: 1. No evidence of acute pulmonary thromboembolism. 2. Mild wall thickening/cuffing of the segmental bronchi in the lungs bilaterally as described, which may represent small airways disease/ lower respiratory tract infection. 3. Nodular infiltrates in the right upper lobe, which may be of inflammatory or infectious etiology. 4. Peribronchial soft tissue thickening in bilateral lungs, consistent with chronic airways disease. 5. Other findings as described above. Suggest clinical correlation and follow up accordingly. Report Electronically Signed By: Goyo Cummings 11/26/2024 2:59:05 AM [EST]
[2024-11-26 03:24] VITALS: BP 139/90; PULSE 67; RESP 12; TEMP 36.6; O2SAT 67
== END 2024-11-26 03:44 | disposition home or self-care (01) ==
PROVIDERS: Student in an Organized Health Care Education/Training Program; Emergency Provider Emergency Medicine
DX: I49.01 Ventricular fibrillation (principal); Z95.810 Presence of automatic (implantable) cardiac defibrillator; I13.0 Hypertensive heart and chronic kidney disease with heart failure and stage 1 through stage 4 chronic kidney disease, or unspecified chronic kidney disease; I48.91 Unspecified atrial fibrillation; I50.20 Unspecified systolic (congestive) heart failure; N18.9 Chronic kidney disease, unspecified; E11.22 Type 2 diabetes mellitus with diabetic chronic kidney disease; N40.0 Benign prostatic hyperplasia without lower urinary tract symptoms; I25.10 Atherosclerotic heart disease of native coronary artery without angina pectoris
CPT/HCPCS: 36415; 71045; 71275; 80053; 80307; 81001; 83605; 83735; 83880; 84484; 85025; 85379; 87400; 87811; 93005; 99285; A4649; Q9967

== ENCOUNTER 2025-01-20 01:08 | Emergency (ER) | payer MEDICAID, SELFPAY ==
[2025-01-20] VITALS (8 sets, daily range): BP systolic 121–158; BP diastolic 83–113; PULSE 84–107; RESP 12–18; TEMP 35.9–36.9; O2SAT 93–99; BMI 28.5
--- NOTE | 2025-01-20 04:12 | PD.EDNECK ---
ED Neck Injury Pain RME/HPI General Chief Complaint: General Adult/Misc Complain Stated Complaint: DIZZINESS, HEADACHE X 2DAYS Time Seen by Provider: 01/20/25 03:57 Arrival date/time: 01/20/25 01:08 RME / HPI RME / HPI Narrative: Dr. Wiggins?s Main ED Evaluation: 59 y/o male with Hx of Pacemaker, CHF, Myocardial Infarction, Atrial Fibrillation, Coronary Artery Disease, Hypercholesterolemia, and Hypertension and SHx of marijuana, crack/cocaine and methamphetamine use presents to ED c/o neck pain behind the left ear x 4 days. Patient reports neck is stiff and hurts when turning his head. He has never experienced pain like this. Admits to sick contacts and initially believed he was also getting sick. Denies cough, runny nose, vomiting, and diarrhea. Per , patient also experienced sweats and chills. Patient has a pacemaker that has been relocate in the past and is seen by Dr. Hendrickson in [place]. Related Data Home Medications ?Medication ?Instructions ?Recorded ?Confirmed linagliptin 5 mg tablet (Tradjenta) 5 mg PO QDAY 10/19/20 07/04/23 clopidogrel 75 mg tablet 75 mg PO QDAY 07/04/23 09/19/23 gabapentin 300 mg capsule 300 mg PO TID 07/04/23 09/19/23 gemfibrozil 600 mg tablet 600 mg PO BID 07/04/23 09/19/23 hydralazine 25 mg tablet 25 mg PO TID 07/04/23 09/19/23 isosorbide dinitrate 5 mg tablet 5 mg PO BID 07/04/23 09/19/23 tamsulosin 0.4 mg capsule 0.4 mg PO QDAY 07/04/23 09/19/23 apixaban 5 mg tablet (Eliquis) 5 mg PO BID 09/19/23 09/19/23 Previous Rx's ?Medication ?Instructions ?Recorded aspirin 81 mg tablet,delayed 81 mg PO QDAY #30 tabs 12/23/18 release (Aspir-Low) hydrocodone 10 mg-acetaminophen 1 tab PO Q6H PRN pain #20 tabs 04/04/19 325 mg tablet (Niland) cyclobenzaprine 5 mg tablet 5 mg PO QHSPRN PRN muscle spasm 09/13/23 #10 tabs lidocaine 5 % topical patch 1 patch topical QDAY #15 ea 09/13/23 (Lidoderm) insulin detemir U-100 100 unit/mL 30 unit (0.3 mL) subcut QDAY 30 09/23/23 (3 mL) subcutaneous pen (Levemir days #9 mL FlexPen) insulin lispro 100 unit/mL 8 unit (0.08 mL) subcut TIDWM #15 09/24/23 subcutaneous pen (Humalog KwikPen mL (U-100) Insulin) furosemide 40 mg tablet (Lasix) 40 mg PO QAM #3 tabs 02/18/24 hydrocodone 5 mg-acetaminophen 325 1 tab PO BID PRN pain #7 tabs 04/11/24 mg tablet amoxicillin 875 mg-potassium 1 tab PO Q12H #10 tabs 09/30/24 clavulanate 125 mg tablet cephalexin 500 mg capsule 500 mg PO Q8H #15 caps 01/20/25 lorazepam 1 mg tablet (Ativan) 1 mg PO BID PRN anxiety #10 tabs 01/20/25 metolazone 5 mg tablet 5 mg PO QDAY #5 tabs 01/20/25 spironolactone 25 mg tablet 25 mg PO QDAY #5 tabs 01/20/25 (Aldactone) Allergies Allergy/AdvReac Type Severity Reaction Status Date / Time clonidine Allergy Severe SWELLING Verified 09/30/24 01:20 nut - unspecified Allergy Severe Swelling Verified 09/30/24 01:20 Review of Systems Review of Systems Systems Reviewed: All systems reviewed, normal except as documented Past Medical History Past Medical History NEUROLOGIC: Positive Meningitis CARDIAC: Positive Cardiac Disorders (pacemaker, possible CHF), Myocardial Infarction, Atrial Fibrillation, Coronary Artery Disease, Hypercholesterolemia, Congestive Heart Failure and Hypertension RESPIRATORY: Positive Pneumonia GASTROINTESTINAL: Positive Gastrointestinal Bleed GENITOURINARY: Positive Kidney Stones MUSCULOSKELETAL: Positive Musculoskeletal Disorders, Degenerative Disk Disease and Osteomyelitis ENDOCRINE: Positive Endocrine Disorders and Diabetes Mellitus Type 2 (ozempic) Family History FAMILY HISTORY: Positive Family Cancer Surgical History SURGICAL: Positive Cardiac Surgery, Open Heart Surgery, Coronary Artery Bypass Graft and Pacemaker Social History SUBSTANCE USE: marijuana, crack/cocaine and methamphetamine ED Exam Narrative Physical exam: GENERAL APPEARANCE: alert and oriented x 4, well-developed, well-nourished, no acute distress VITALS: All vitals were reviewed and the pulse ox is 97% on room air, which is normal according to my interpretation. HEENT: Normocephalic, atraumatic; pupils equal, round, reactive to light; EOMI; mucous membranes pink, moist; oropharynx clear, no point tenderness over left mastoid NECK: Supple LUNGS: CTABL; no wheezes, no rales, no rhonchi HEART: Regular rate, irregular regular rhythm; normal S1, S2; no murmurs, BP 156/109 then 158/113, HR 94 CHEST: Left chest pacer ABDOMEN: non distended; normal BS; soft, no tenderness, no guarding, no rebound; no masses, no organomegaly, no hernia BACK: no CVA tenderness EXTREMITIES: atraumatic; no edema NEUROLOGIC: awake; alert and oriented x4; cranial nerves II-XII grossly intact; no focal sensory or motor deficits PSYCHIATRIC: appropriate mood and affect SKIN: warm, dry, normal color; no rashes Course Quality Measures none Orders Category Date Time Status CT Screening NOW Care 01/20/25 06:41 Completed EKG (ED ONLY) *Do not use* NOW Care 01/20/25 01:13 Completed MRI Screening NOW Care 01/20/25 09:48 Completed Discharge Routine Discharge 01/20/25 14:[address] head/brain wo con Stat Exams 01/20/25 06:36 Completed EKG (ED Only) Stat Exams 01/20/25 01:13 Ordered CBC Stat Lab 01/20/25 05:24 Completed CMP [Comprehensive Metabolic Panel] Stat Lab 01/20/25 05:24 Completed Digoxin Stat Lab 01/20/25 05:24 Completed INR [Prothrombin Time with INR] Stat Lab 01/20/25 05:24 Completed PTT [Partial Thromboplastin Time] Stat Lab 01/20/25 05:24 Completed Troponin I Stat Lab 01/20/25 12:20 Completed Acetaminophen Ivpb [Ofirmev Inj] Med 01/20/25 04:11 Discontinued 1,000 mg in 100 ml IV X1 DiphenhydrAMINE INJ [Benadryl Inj] Med 01/20/25 04:10 Discontinued 12.5 mg IVP X1 ONE LORazepam [Ativan Inj] Med 01/20/25 06:10 Discontinued 1 mg IVP X1 ONE Labetalol IV [Trandate IV] Med 01/20/25 04:13 Discontinued 10 mg IVP X1 ONE Metoclopramide Inj [Reglan Inj] Med 01/20/25 04:10 Discontinued 10 mg IVP X1 ONE Morphine Inj Med 01/20/25 06:42 Discontinued 4 mg IVP X1 ONE Vital Signs Vital signs: Vital Signs Temperature 98.4 F 01/20/25 01:12 Pulse Rate 92 01/20/25 01:12 Respiratory Rate 18 01/20/25 01:12 Blood Pressure 137/91 H 01/20/25 01:12 Pulse Oximetry (%) 97 01/20/25 01:12 Oxygen Delivery Method Room Air 01/20/25 01:12 Neck Pain MDM Narrative MDM Narrative:: Scribe Attestation: I, Mercedez Neri, am scribing for and in the presence of Dr. Wiggins. Provider Notation: Although this document has been carefully reviewed, there may still be some phonetic and other typographical errors.? These errors are purely grammatical due to imperfections in the software program and should not be construed in any way to? compromise the substance of the patient's medical care during this visit. 0600: Care assumed by Dr. Ambrosio (emergency physician). Past medical, surgical, social and family history reviewed. Vitals and home medications reviewed. Results and treatment plan discussed. They will assume the care of the patient at this time and will follow the patient, pending labs and final disposition. Patient data External records reviewed:: [facility] previous records Clinical information provided by:: patient and spouse () Social determinants that could affect healthcare access:: none Patient has the following chronic illnesses:: Meningitis, pacemaker, CHF, Myocardial Infarction, Atrial Fibrillation, Coronary Artery Disease, Hypercholesterolemia, and Hypertension and SHx of marijuana, crack/cocaine and methamphetamine use, Pneumonia, Gastrointestinal Bleed, Kidney Stones, Degenerative Disk Disease, Osteomyelitis, Diabetes Mellitus Type 2 How is presenting disease/condition affected by chronic disease/condition?: exacerbated by Evaluation data The following diagnostics were reviewed and interpreted by me:: lab results Lab and/or radiology exams considered but not ordered:: None Interpretation Summary: LABS Hematology: WBC 12.3, RBC 3.24, Hgb 10.2, Hct 28.4. Chemistry: BUN 49, Creatinine 1.9, Est. Creatinine Calc 51.4, eGFR 41, BUN/Creatinine 26, Glucose 268, Osmolality 301, Protein 8.8, Globulin 4.1, Albumin/Globulin ratio 1.1. Medications / Prescriptions Medications or Prescriptions considered but not ordered:: None Medication administrations:: Medication Administration History Discontinued Medications Diphenhydramine HCl (Diphenhydramine Inj 50 Mg/Ml Vial) 12.5 mg IVP X1 ONE Stop: 01/20/25 04:11 Last Admin: 01/20/25 04:45 Dose: 12.5 mg Documented By: CCT Acetaminophen (Ofirmev Inj) 1,000 mg in 100 mls @ 250 mls/hr IV X1 ONE Stop: 01/20/25 04:34 Last Infusion: 01/20/25 05:27 Dose: Infused Documented By: Admin: 01/20/25 04:44 Dose: 250 mls/hr Documented By: CCT Labetalol HCl (Labetalol Inj 5 Mg/Ml Vial 20 Ml) 10 mg IVP X1 ONE Stop: 01/20/25 04:14 Last Admin: 01/20/25 04:45 Dose: 10 mg Documented By: CCT Lorazepam (Lorazepam 2 Mg/Ml Vial) 1 mg IVP X1 ONE Stop: 01/20/25 06:11 Last Admin: 01/20/25 07:14 Dose: 1 mg Documented By: CCT Metoclopramide HCl (Metoclopramide Inj 5 Mg/Ml Vial 2 Ml) 10 mg IVP X1 ONE; Protocol Stop: 01/20/25 04:11 Last Admin: 01/20/25 04:44 Dose: 10 mg Documented By: CCT Morphine Sulfate (Morphine Sulf Inj 10 Mg/Ml Vial) 4 mg IVP X1 ONE Stop: 01/20/25 06:43 Last Admin: 01/20/25 07:14 Dose: 4 mg Documented By: CCT See above if any Consultations Consultation(s) initiated? (list below): No Diagnosis Neck Differential Diagnosis: disc disorder of cervical region, cervical radiculopathy, torticollis, cervical spondylosis and strain of neck muscle Most likely diagnosis given after review of the tests above:: See clinical impression below Admission Indicated Admission indicated?: not indicated Admission Request Was there a request for admission?: No Disposition Plan Disposition Plan: other (specify) (0600: Patient signed out to Dr. Felix. Pending final disposition.) Discharge Plan Plan Patient Disposition: HOME (Self Care) Patient condition on transfer: Stable Prescriptions/Referrals Prescriptions/Med Rec: New metolazone 5 mg tablet 5 mg PO QDAY Qty: 5 0RF spironolactone [Aldactone] 25 mg tablet 25 mg PO QDAY Qty: 5 0RF cephalexin 500 mg capsule 500 mg PO Q8H Qty: 15 0RF lorazepam [Ativan] 1 mg tablet 1 mg PO BID PRN (Reason: anxiety) Qty: 10 0RF No Action hydrocodone-acetaminophen [Niland] 10-325 mg tablet 1 tab PO Q6H MDD 4g Acetaminophen PRN (Reason: pain) Qty: 20 0RF Tradjenta 5 mg Tablet 5 mg PO QDAY aspirin [Aspir-Low] 81 mg Tablet,Delayed Release (Dr/Ec) 81 mg PO QDAY Qty: 30 0RF gabapentin 300 mg capsule 300 mg PO TID Patient Comments: TAKE 1 CAPSULE BY MOUTH THREE TIMES A DAY FOR 30 DAYS hydralazine 25 mg tablet 25 mg PO TID Patient Comments: TAKE 1 TABLET BY MOUTH THREE TIMES A DAY WITH FOOD FOR 30 DAYS isosorbide dinitrate 5 mg tablet 5 mg PO BID Patient Comments: TAKE 1 TABLET BY MOUTH TWICE A DAY FOR 30 DAYS tamsulosin 0.4 mg capsule 0.4 mg PO QDAY Patient Comments: TAKE 1 CAPSULE BY MOUTH EVERY DAY FOR 30 DAYS gemfibrozil 600 mg tablet 600 mg PO BID Patient Comments: TAKE 1 TABLET BY MOUTH TWICE A DAY clopidogrel 75 mg tablet 75 mg PO QDAY Patient Comments: TAKE 1 TABLET BY MOUTH EVERY DAY FOR 30 DAYS lidocaine [Lidoderm] 5 % adhesive patch,medicated 1 patch topical QDAY Qty: 15 0RF Rx Instructions: leave on most painful area for up to 12 hrs cyclobenzaprine 5 mg tablet 5 mg PO QHSPRN PRN (Reason: muscle spasm) Qty: 10 0RF Eliquis 5 mg Tablet 5 mg PO BID Levemir FlexPen 100 unit/mL (3 mL) insulin pen 30 unit SUBCUT QDAY 30 Days Qty: 9 0RF Patient Comments: INJECT 20 UNITS SUBCUTANEOUSLY ONCE A DAY insulin lispro [Humalog KwikPen Insulin] 100 unit/mL insulin pen 8 unit subcut TIDWM Qty: 15 0RF furosemide [Lasix] 40 mg tablet 40 mg PO QAM Qty: 3 0RF hydrocodone-acetaminophen 5-325 mg tablet 1 tab PO BID MDD 2 PRN (Reason: pain) Qty: 7 0RF amoxicillin-pot clavulanate 875-125 mg tablet 1 tab PO Q12H Qty: 10 0RF Referrals: Temporary Provider,ED [Physician] - In 1 week Problem List Clinical Impression: Diastolic heart failure, Atrial fibrillation, Atrial fibrillation with RVR, Acute diastolic (congestive) heart failure, Cellulitis of ear Patient/Caregiver Discharge Instructions Discharge Activity: activity as tolerated Education Materials: ED Atrial Fibrillation, ED Cellulitis, ED Heart Failure, Congestive (CHF) Print Language: Bengali Stand Alone Forms: [employer] Award Info., Patient Portal Info Letter
[2025-01-20] MEDS: ACETAMINOPHEN IVPB 1,000 MG/100 ML VIAL 250 MG IV (04:44)
[2025-01-20] MEDS: METOCLOPRAMIDE INJ 5 MG/ML VIAL 2 ML 10 MG IVP (04:44)
[2025-01-20] MEDS: LABETALOL INJ 5 MG/ML VIAL 20 ML 10 MG IVP (04:45)
[2025-01-20] MEDS: DiphenhydrAMINE INJ 50 MG/ML VIAL 12.5 MG IVP (04:45)
[2025-01-20 05:43] LABS: Basophils # (Auto) 0.1 Thou/mm3 (0.0-0.2); Basophils % (Auto) 1 % (0-2.5); Eosinophils # (Auto) 0.5 Thou/mm3 (0.0-0.5); Eosinophils % (Auto) 4 % (0-10); Hematocrit 28.4 % (41.0-53.0); Hemoglobin 10.2 g/dL (13.5-16.0); Immature Granulocytes % (Auto) 0 % (0-0); Immature Granulocytes Auto 0.05 Thou/mm3 (0.00-0.00); Lymphocytes # (Auto) 2.6 Thou/mm3 (1.0-4.8); Lymphocytes % (Auto) 21 % (10-50); Mean Corpuscular HGB Conc 35.9 g/dl (31.0-37.0); Mean Corpuscular Hemoglobin 31.5 pg (25.0-35.0); Mean Corpuscular Volume 88 fL (80-100); Monocytes % (Auto) 8 % (0-12); Neutrophils # (Auto) 8.2 Thou/mm3 (1.8-7.7); Neutrophils % (Auto) 66 % (37-80); Nucleated Red Blood Cell % 0 /100 WBC (0); Platelet Count 305 Thou/mm3 (140-440); RDW Standard Deviation 46.2 fL (35.1-43.9); Red Blood Count 3.24 Miln/mm3 (4.50-5.90); White Blood Count 12.3 Thou/mm3 (3.8-10.6)
[2025-01-20 06:12] LABS: INR 1.1 (0.9-1.3); Partial Thromboplastin Time 32.8 Seconds (22.0-36.0); Prothrombin Time 12.4 Seconds (9.0-12.2)
--- NOTE | 2025-01-20 06:19 | EDNOTE_ITS ---
Emergency Room Addendum Addendum Narrative: 0600: Care assumed from Dr. Wiggins, the previous shift emergency physician. Past medical, surgical, social and family history reviewed. Vitals and home medications reviewed. I will assume the care of the patient at this time, pending remainder of labs and final disposition. Please refer to the emergency department record for history and examination from initial visit.? Physical exam by me shows patient under no acute distress at this time. Patient used methamphetamine. He is hypertensive. Will give ativan and order a head CT. 1000: Head CT shows sinusitis only (see full report below). Labs unremarkable except for CKD. 1010: Patient is doing better. Patient denies any drug use since 2019. Heart rate is 107. Repeat BP 128/84. Will give home medications and reevaluate. 1402: Patient's heart rate is in the 90's, much improved. Diagnoses include acut e diastolic heart failure and atrial fibrillation. Plan is to discharge and give Metolazone 5 mg and aldactone 25 mg. Also, will give keflex for ear infection. CRITICAL CARE: TIME: 60 minutes. The high probability of sudden, clinically significant deterioration in the patient?s condition required the highest level of my preparedness to intervene urgently. The services I provided to this patient were to treat and/or prevent clinically significant deterioration. Services included the following: chart data review, reviewing nursing notes and/or old charts, documentation time, job service consultant collaboration regarding findings and treatment options, medication orders and management, direct patient care, vital sign assessments and ordering, interpreting and reviewing diagnostic studies and lab tests. Aggregate critical care time includes only time during which I was engaged in work directly related to the patient?s care, as described above, whether at bedside or elsewhere in the Emergency Department. It did not include time spent performing other reported procedures or the services of residents, students, nurses or physician assistants. RADIOLOGY Procedure(s): CT head/brain wo con Accession Number(s): [id number] cc: Forrest Ambrosio MD; David Andrew MD; Rancho Bergman MD~ Examination: CT brain head without contrast. 2-D sagittal coronal reconstructions Date and time of exam:January 20, 2025 0912 hours Comparison September 19, 2023 INDICATIONS: Onset generalized head pain beginning this morning CTDI: vol (mGy):59 DLP: (mGycm):1376 Technique: Multiple CT axial sections of the brain have been obtained, 5 mm slice thickness. Contrast has not been administered. 2-D sagittal, coronal reconstructions have been obtained Low dose protocols were performed. One or more of the following dose reduction techniques were used; automated exposure control, adjustment of the mA and/or KV according to patient size, use of iterative reconstruction technique. Findings: Mild disc ventricular enlargement. Intra-axial or extra-axial hemorrhage density is not seen. No mass effect or midline shift Basal cisterns are not remarkable. Fourth ventricle is midline. Cranial vault intact. Impression: Negative for acute hemorrhage, mass effect or midline shift Moderate chronic ethmoid sinusitis Advise clinical correlation follow-up accordingly Dictated By: David Andrew MD
--- NOTE | 2025-01-20 06:36 | XR_ITS ---
Examination: CT brain head without contrast. 2-D sagittal coronal reconstructions Date and time of exam:January 20, 2025 0912 hours Comparison September 19, 2023 INDICATIONS: Onset generalized head pain beginning this morning CTDI: vol (mGy):59 DLP: (mGycm):1376 Technique: Multiple CT axial sections of the brain have been obtained, 5 mm slice thickness. Contrast has not been administered. 2-D sagittal, coronal reconstructions have been obtained Low dose protocols were performed. One or more of the following dose reduction techniques were used; automated exposure control, adjustment of the mA and/or KV according to patient size, use of iterative reconstruction technique. Findings: Mild disc ventricular enlargement. Intra-axial or extra-axial hemorrhage density is not seen. No mass effect or midline shift Basal cisterns are not remarkable. Fourth ventricle is midline. Cranial vault intact. Impression: Negative for acute hemorrhage, mass effect or midline shift Moderate chronic ethmoid sinusitis Advise clinical correlation follow-up accordingly
[2025-01-20 06:51] LABS: Alanine Aminotransferase 15 U/L (10-49); Albumin, Serum 4.7 gm/dL (3.5-5.0); Albumin/Globulin Ratio 1.1 (1.2-2.2); Alkaline Phosphatase 115 U/L (46-116); Anion Gap 13 (7-16); Aspartate Amino Transferase 15 U/L (0-34); BUN/Creatinine Ratio 26 Ratio (12-20); Bilirubin,Total 0.9 mg/dL (0.3-1.2); Blood Urea Nitrogen 49 mg/dL (9-23); Calcium 9.4 mg/dL (8.3-10.6); Calcium (Corrected) 9.4 mg/dL (8.5-10.1); Chloride 102 mMol/L (98-107); Creatinine (Component) 1.9 mg/dL (0.6-1.3); Estimated Creatinine Clearance 51.4 mL/min (>60); Globulin 4.1 gm/dL (2.3-3.5); Glucose 268 mg/dL (74-106); Osmolality,Calculated 301 (275-295); Sodium 140 mMol/L (136-145); Total Protein 8.8 gm/dL (5.7-8.2); eGFR 41 See Note
[2025-01-20 07:10] LABS: Digoxin 0.8 ng/mL (0.8-2.0)
[2025-01-20] MEDS: LORazepam 2 MG/ML VIAL 1 MG IVP (07:14)
[2025-01-20] MEDS: MORPHINE SULF INJ 10 MG/ML VIAL 4 MG IVP (07:14)
--- NOTE | 2025-01-20 07:40 | PC.NURSE ---
PT RESTING QUIETLY IN BED. RESP EVEN AND UNLABORED; NO S/SX DISTRESS OR DISCOMFORT. VS STABLE. CAME IN ROOM WHILE I WAS WITH PT. ATTEMPTED TO START IV IN RAC W/O SUCCESS. WILL ASK COLLAGUE TO HELP W/ IV. WILL CONTINUE TO MONITOR.
--- NOTE | 2025-01-20 08:15 | PC.NURSE ---
Spoke w/ Dr. Ambrosio if he still wants CT w/ contrast since pt's GFR is low, and BUN/creat are high. He said yes, to continue w/ CT order. Noted. Will let cell technician know.
--- NOTE | 2025-01-20 08:28 | PC.NURSE ---
Informed Al in CT that MD still wants CT w/ contrast.
--- NOTE | 2025-01-20 08:52 | PC.NURSE ---
Al from CT called re: pt's history if he has DB, on DB meds, one or two kidneys. He is going to call Dr. Gabriel, the radiologist, to see if CT w/ contrast should be done. Awaiting return call.
--- NOTE | 2025-01-20 09:04 | PC.NURSE ---
CALL BACK FROM [facility] IN [place]. HE SPOKE W/ DR. LAURENT AND HE SAID A CT W/ CONTRAST SHOULD NOT BE DONE BECAUSE OF THE PT'S COMPROMISED RENAL SYSTEM. HE RECOMMENDED A MRA BRAIN SCAN W/O CONTRAST. DR. DOHERTY SAID TO ORDER THAT INSTEAD OF THE CT W/ CONTRAST. NOTED.
--- NOTE | 2025-01-20 09:10 | PC.NURSE ---
NO NEED TO START ANOTHER IV EXAM W/ CONTRAST HAS BEEN CANCELLED. NO NEED FOR SECOND IV ACCESS.
[2025-01-20 12:44] LABS: Troponin I 0.021 ng/mL (0.0-0.045)
--- NOTE | 2025-01-20 14:42 | PC.NURSE ---
PT DISCHARGED HOME VIA PRIVATE VEHICLE ACCOMPANIED BY ; PT AMB TO ED ENTRANCE. IV DC'D W/O DIFFICULTY; PT TOLERATED WELL. D/C INST GIVEN W/ UNDERSTANDING EXPRESSED AND QUESTIONS ANSWERED.
== END 2025-01-20 14:43 | disposition home or self-care (01) ==
PROVIDERS: Emergency Medicine; Emergency Provider Emergency Medicine; PCP Family Medicine
DX: I11.0 Hypertensive heart disease with heart failure (principal); I50.31 Acute diastolic (congestive) heart failure; I48.91 Unspecified atrial fibrillation; H60.10 Cellulitis of external ear, unspecified ear; Z95.0 Presence of cardiac pacemaker; I25.2 Old myocardial infarction; I25.10 Atherosclerotic heart disease of native coronary artery without angina pectoris; E78.00 Pure hypercholesterolemia, unspecified; J32.2 Chronic ethmoidal sinusitis
CPT/HCPCS: 36415; 70450; 80053; 80162; 84484; 85025; 85610; 85730; 93005; 96365; 96374; 96375; 99284; J0131; J1200; J2060; J2270; J2765; J3490; J1920

== ENCOUNTER 2025-03-04 18:36 | Emergency (ER) | payer MEDICAID, SELFPAY ==
[2025-03-04 18:37] VITALS: BMI 27.5
[2025-03-04 18:48] VITALS: BP 108/63; PULSE 82; RESP 20; TEMP 36.5; O2SAT 96
--- NOTE | 2025-03-04 19:06 | XR_ITS ---
Examination: PA chest single view TECHNIQUE: Upright PA chest single view Date and time: March 04, 2025 1940 hours Comparison November 25, 2024 INDICATIONS: Slurred speech weakness several years FINDINGS: Moderate enlargement left ventricle CABG Cardiac leads stable position No pneumonia or pulmonary edema Mild vascular congestion Impression : No pneumonia or pulmonary edema
--- NOTE | 2025-03-04 19:06 | XR_ITS ---
Examination: Toes, left foot 3 views Technique: Toes AP oblique lateral 3 views Date and time of exam: March 04, 2025 and 191 hours INDICATIONS: Redness swelling and pain second digit, toe is black FINDINGS: Soft tissue swelling surrounding the first and second digits Chronic erosions involving the distal phalanges first second digits No fracture IMPRESSION: Chronic osteomyelitis distal phalanges first and second digits Consider MRI for without contrast follow-up
--- NOTE | 2025-03-04 19:06 | XR_ITS ---
Examination: CT brain head without contrast. 2-D sagittal coronal reconstructions Date and time of exam:March 04, 2025 1919 hours Comparison January 20, 2025 INDICATIONS: Slurred speech and generalized weakness today CTDI: vol (mGy):57.8 DLP: (mGycm):1242 Technique: Multiple CT axial sections of the brain have been obtained, 5 mm slice thickness. Contrast has not been administered. 2-D sagittal, coronal reconstructions have been obtained Low dose protocols were performed. One or more of the following dose reduction techniques were used; automated exposure control, adjustment of the mA and/or KV according to patient size, use of iterative reconstruction technique. Findings: No significant ventricular enlargement. Intra-axial or extra-axial hemorrhage density is not seen. No mass effect or midline shift Basal cisterns are not remarkable. Fourth ventricle is midline. Cranial vault intact. Impression: Negative for acute hemorrhage, mass effect or midline shift Advise clinical correlation and follow up accordingly
--- NOTE | 2025-03-04 19:08 | PD.EDRME ---
Rapid Medical Screening Exam RME Arrival date/time: 03/04/25 18:36 59M with A-fib, HFrEF 35-40%, CABG, CAD, DM2, low back pain and stage 4 CKD presents to ED with generalized weakness and L 2nd black toe. Patient also has had intermittent slurred speech since about 7 PM yesterday. Chief Complaint: Neuro Symptoms/Deficit Time Seen by Provider: 03/04/25 19:04 Vital signs: Vital Signs Temperature 97.7 F 03/04/25 18:48 Pulse Rate 82 03/04/25 18:48 Respiratory Rate 20 03/04/25 18:48 Blood Pressure 108/63 03/04/25 18:48 Pulse Oximetry (%) 96 03/04/25 18:48 Oxygen Delivery Method Room Air 03/04/25 18:48
--- NOTE | 2025-03-04 19:11 | EKG_ITS ---
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
[2025-03-04 19:57] LABS: Lactate (Lactic Acid) 3.4 mMol/L (0.4-2.0)
[2025-03-04 20:01] LABS: Basophils # (Auto) 0.1 Thou/mm3 (0.0-0.2); Basophils % (Auto) 1 % (0-2.5); Eosinophils # (Auto) 0.3 Thou/mm3 (0.0-0.5); Eosinophils % (Auto) 3 % (0-10); Hemoglobin 12.9 g/dL (13.5-16.0); Immature Granulocytes % (Auto) 0 % (0-0); Immature Granulocytes Auto 0.04 Thou/mm3 (0.00-0.00); Lymphocytes # (Auto) 1.7 Thou/mm3 (1.0-4.8); Lymphocytes % (Auto) 18 % (10-50); Mean Corpuscular HGB Conc 35.8 g/dl (31.0-37.0); Mean Corpuscular Hemoglobin 31.9 pg (25.0-35.0); Mean Corpuscular Volume 89 fL (80-100); Monocytes # (Auto) 0.7 Thou/mm3 (0.0-0.8); Monocytes % (Auto) 7 % (0-12); Neutrophils # (Auto) 6.9 Thou/mm3 (1.8-7.7); Neutrophils % (Auto) 71 % (37-80); Nucleated Red Blood Cell % 0 /100 WBC (0); Platelet Count 241 Thou/mm3 (140-440); RDW Standard Deviation 45.8 fL (35.1-43.9); Red Blood Count 4.05 Miln/mm3 (4.50-5.90); White Blood Count 9.8 Thou/mm3 (3.8-10.6)
[2025-03-04 20:09] VITALS: BP 120/76; PULSE 74; RESP 18; TEMP 36.9; O2SAT 97
[2025-03-04 20:18] LABS: Sed Rate (ESR) 49 mm/hr (0-20)
[2025-03-04 20:20] LABS: B-Type Natriuretic Peptide 214 pg/mL (0-100)
[2025-03-04 20:27] LABS: Collection Type, Urine Clean Catch
[2025-03-04 20:33] LABS: Alanine Aminotransferase 22 U/L (10-49); Albumin, Serum 4.5 gm/dL (3.5-5.0); Albumin/Globulin Ratio 1.4 (1.2-2.2); Alkaline Phosphatase 108 U/L (46-116); Anion Gap 11 (7-16); Aspartate Amino Transferase 16 U/L (0-34); BUN/Creatinine Ratio 16 Ratio (12-20); Bilirubin,Total 1.2 mg/dL (0.3-1.2); Blood Urea Nitrogen 30 mg/dL (9-23); C-Reactive Protein 1.4 mg/dL (0.0-0.9); Calcium 9.8 mg/dL (8.3-10.6); Calcium (Corrected) 9.8 mg/dL (8.5-10.1); Carbon Dioxide 21.7 mMol/L (20.0-31.0); Chloride 101 mMol/L (98-107); Creatinine (Component) 1.9 mg/dL (0.6-1.3); Estimated Creatinine Clearance 51.3 mL/min (>60); Globulin 3.3 gm/dL (2.3-3.5); Glucose 359 mg/dL (74-106); Magnesium 1.7 mg/dL (1.6-2.6); Osmolality,Calculated 288 (275-295); Potassium 4.6 mMol/L (3.4-5.1); Procalcitonin 0.16 ng/ml (0.0-0.49); Sodium 134 mMol/L (136-145); Total Protein 7.8 gm/dL (5.7-8.2); Troponin I 0.022 ng/mL (0.0-0.045); eGFR 41 See Note
[2025-03-04 20:45] LABS: INR 1.1 (0.9-1.3); Partial Thromboplastin Time 29.3 Seconds (22.0-36.0)
[2025-03-04 20:48] LABS: Bilirubin,Urine Negative (Negative); Blood,Urine Trace (Negative); Clarity,Urine Clear (Clear/Hazy); Color,Urine Lt-Yellow (Lt Yel-Yel); Glucose, Urine Negative (Negative); Ketones,Urine Negative (Negative); Leukocyte Esterase,Urine Negative (Negative); Nitrite,Urine Negative (Negative); Protein,Urine 2+ (Neg - Trace); RBC,Urine 6 /hpf (0-3); Specific Gravity,Urine 1.014 (1.001-1.035); Squamous Epithelial Cell,Urine < 1 /hpf (0-5); Urobilinogen,Urine Negative mg/dL (0.0-1.0); WBC,Urine 1 /hpf (0-5)
[2025-03-04 21:03] LABS: Amphetamine/Methamp Scrn,U Negative (Negative); Barbiturate Screen,Urine Negative (Negative); Benzodiazepines Screen,Urine Negative (Negative); Benzoylecgonine Screen, Ur Negative (Negative); Fentanyl Screen,Urine Negative (Negative); Opiate Screen,Urine Positive (Negative); THC Screen,Urine Negative (Negative)
--- NOTE | 2025-03-04 21:10 | PD.EDLOWEX ---
Lower Extremity Injury RME/HPI General Chief Complaint: Neuro Symptoms/Deficit Stated Complaint: SENT BY PMD, SLURRED SPEECH BLACK TOE Time Seen by Provider: 03/04/25 19:04 Arrival date/time: 03/04/25 18:36 RME / HPI RME / HPI Narrative: 59-year-old male patient with significant history of chronic A-fib, CABG, diabetes mellitus, CAD, low back pain, CKD, came in for evaluation regarding generalized body weakness. Patient's been having generalized body weakness since yesterday, associated with on and off drowsiness. Patient was also noted to have left second toe tip discoloration, has been ongoing for several weeks. Patient was noted to have brief episode of confusion and slurring with speech yesterday but none today. Patient is ambulatory. Denies any upper or lower extremity weakness denies any headache denies any dizziness. No medication was taken prior to arrival. Related Data Home Medications ?Medication ?Instructions ?Recorded ?Confirmed linagliptin 5 mg tablet (Tradjenta) 5 mg PO QDAY 10/19/20 07/04/23 clopidogrel 75 mg tablet 75 mg PO QDAY 07/04/23 09/19/23 gabapentin 300 mg capsule 300 mg PO TID 07/04/23 09/19/23 gemfibrozil 600 mg tablet 600 mg PO BID 07/04/23 09/19/23 hydralazine 25 mg tablet 25 mg PO TID 07/04/23 09/19/23 isosorbide dinitrate 5 mg tablet 5 mg PO BID 07/04/23 09/19/23 tamsulosin 0.4 mg capsule 0.4 mg PO QDAY 07/04/23 09/19/23 apixaban 5 mg tablet (Eliquis) 5 mg PO BID 09/19/23 09/19/23 Previous Rx's ?Medication ?Instructions ?Recorded aspirin 81 mg tablet,delayed 81 mg PO QDAY #30 tabs 12/23/18 release (Aspir-Low) hydrocodone 10 mg-acetaminophen 1 tab PO Q6H PRN pain #20 tabs 04/04/19 325 mg tablet (Farber) cyclobenzaprine 5 mg tablet 5 mg PO QHSPRN PRN muscle spasm 09/13/23 #10 tabs lidocaine 5 % topical patch 1 patch topical QDAY #15 ea 09/13/23 (Lidoderm) insulin detemir U-100 100 unit/mL 30 unit (0.3 mL) subcut QDAY 30 09/23/23 (3 mL) subcutaneous pen (Levemir days #9 mL FlexPen) insulin lispro 100 unit/mL 8 unit (0.08 mL) subcut TIDWM #15 09/24/23 subcutaneous pen (Humalog KwikPen mL (U-100) Insulin) furosemide 40 mg tablet (Lasix) 40 mg PO QAM #3 tabs 02/18/24 hydrocodone 5 mg-acetaminophen 325 1 tab PO BID PRN pain #7 tabs 04/11/24 mg tablet amoxicillin 875 mg-potassium 1 tab PO Q12H #10 tabs 09/30/24 clavulanate 125 mg tablet cephalexin 500 mg capsule 500 mg PO Q8H #15 caps 01/20/25 lorazepam 1 mg tablet (Ativan) 1 mg PO BID PRN anxiety #10 tabs 01/20/25 metolazone 5 mg tablet 5 mg PO QDAY #5 tabs 01/20/25 spironolactone 25 mg tablet 25 mg PO QDAY #5 tabs 01/20/25 (Aldactone) doxycycline hyclate 100 mg capsule 100 mg PO BID #14 caps 03/04/25 Allergies Allergy/AdvReac Type Severity Reaction Status Date / Time clonidine Allergy Severe SWELLING Verified 03/04/25 18:39 nut - unspecified Allergy Severe Swelling Verified 03/04/25 18:39 Review of Systems Review of Systems Narrative Review of Systems: Review of system reviewed and within normal limits except mentioned in HPI ED Exam Narrative Physical exam: VITAL SIGNS: Reviewed. GENERAL APPEARANCE: Alert and interactive x 3,, follows commands, no acute distress, no slurring speech HEAD AND FACE: Non-traumatic. ENT: PERRL, pink conjunctivitis, eyelid no trauma, Mucous membrane moist. NECK: Supple, nontender, no nuchal rigidity. CHEST: No tenderness, no crepitus, no paradoxical movement, no retractions. LUNGS: Clear, well ventilated, symmetric, no rales, no wheezing, no ronchi, no stridor, good breath sounds bilaterally. HEART: Regular rate, regular rhythm, no murmur, no gallops. ABDOMEN: Soft, positive bowel sounds, nondistended, no guarding, nontender, no rebound, no masses, RECTAL: Deferred. GENITAL: Deferred. NEUROLOGICAL: Gross motor function intact sensory function intact, Appropriate for age. MUSCULOSKELETAL: low back nontender, full range of motion. EXTREMITIES: Discoloration left second toe none no blister noted, nontender hard, nontender, full range of motion. SKIN: Color pink, dry, no rash, no lacerations, no abrasions, no contusions. LYMPHATICS: Deferred. Course Quality Measures none Orders Category Date Time Status EKG (ED ONLY) *Do not use* NOW Care 03/04/25 19:[address] head/brain wo con Stat Exams 03/04/25 19:06 Completed EKG (ED Only) Stat Exams 03/04/25 19:11 Draft XR chest 1V portable Stat Exams 03/04/25 19:06 Completed XR toe LT min 2V Stat Exams 03/04/25 19:06 Completed B-Type Natriuretic Peptide Stat Lab 03/04/25 19:48 Completed CBC Stat Lab 03/04/25 19:48 Completed CRP [C-Reactive Protein] Stat Lab 03/04/25 19:48 Completed Comprehensive Metabolic Panel Stat Lab 03/04/25 19:48 Completed Drug Screen,Urine Stat Lab 03/04/25 20:19 Completed ESR [Sed Rate (ESR)] Stat Lab 03/04/25 19:48 Completed Lactate (Lactic Acid) Stat Lab 03/04/25 19:48 Results Magnesium Stat Lab 03/04/25 19:48 Completed Partial Thromboplastin Time Stat Lab 03/04/25 19:48 Completed Procalcitonin Stat Lab 03/04/25 19:48 Completed Prothrombin Time with INR Stat Lab 03/04/25 19:48 Completed Troponin I Stat Lab 03/04/25 19:48 Completed Urinalysis Stat Lab 03/04/25 20:19 Completed HYDROcodone*/APAP 5/325 [Farber 5/325] Med 03/04/25 21:09 Discontinued 1 tab PO X1 ONE Sodium Chloride 0.9% 1000 ml [Ns] 1,000 ml Med 03/04/25 21:08 Active IV 999 mls/hr Sodium Chloride 0.9% 1000 ml [Ns] 1,000 ml Med 03/04/25 21:16 Active IV 999 mls/hr Sodium Chloride 0.9% 1000 ml [Ns] 1,000 ml Med 03/04/25 21:16 Active IV 999 mls/hr Trimethoprim/Sulfa 160/800 Ds [Bactrim Ds] Med 03/04/25 21:09 Discontinued 1 tab PO X1 ONE Vital Signs Vital signs: Vital Signs Temperature 97.7 F 03/04/25 18:48 Pulse Rate 82 03/04/25 18:48 Respiratory Rate 20 03/04/25 18:48 Blood Pressure 108/63 03/04/25 18:48 Pulse Oximetry (%) 96 03/04/25 18:48 Oxygen Delivery Method Room Air 03/04/25 18:48 Extremity Injury, Lower MDM Narrative MDM Narrative:: Patient left AGAINST MEDICAL ADVICE Patient data External records reviewed:: None Clinical information provided by:: patient Social determinants that could affect healthcare access:: none Patient has the following chronic illnesses:: Diabetes mellitus hypertension How is presenting disease/condition affected by chronic disease/condition?: exacerbated by Evaluation data The following diagnostics were reviewed and interpreted by me:: lab results, radiology exam(s) and EKG tracing(s) Lab and/or radiology exams considered but not ordered:: None Interpretation Summary: CBC no leukocytosis noted. ESR 49, chemistry is significant for creatinine 1.9, BUN of 30 lactic 3.4 C-reactive 1.4 urinalysis no UTI positive for opioids EKG showed paced rhythm, ventricular rate of 80 bpm, ST segment elevation depression noted. X-ray of the 2 showed Chronic osteomyelitis distal phalanges first and second digits Medications / Prescriptions Medications or Prescriptions considered but not ordered:: none Medication administrations:: Medication Administration History Sodium Chloride (Ns) 1,000 mls @ 999 mls/hr IV .Q1H1M ONE Stop: 03/04/25 22:08 Sodium Chloride (Ns) 1,000 mls @ 999 mls/hr IV .Q1H1M ONE Stop: 03/04/25 22:16 Sodium Chloride (Ns) 1,000 mls @ 999 mls/hr IV .Q1H1M ONE Stop: 03/04/25 22:16 Discontinued Medications Hydrocodone Bitart/Acetaminophen (Hydrocodone/Apap 5/325 Tablet) 1 tab PO X1 ONE Stop: 03/04/25 21:10 Trimethoprim/Sulfamethoxazole (Trimethoprim/Sulfa 160/800 Ds Tablet) 1 tab PO X1 ONE Stop: 03/04/25 21:10 Bactrim Farber. Patient AMA after Consultations Consultation(s) initiated? (list below): No Diagnosis Extremity Injury, Lower Differential Diagnosis: other (Diabetic foot infection, gangrene toe, confusion) Most likely diagnosis given after review of the tests above:: Diabetic toe infection, dry gangrene Admission Indicated Admission indicated?: not indicated Explain why admission is indicated or not indicated:: Pt has normal mental status and adequate capacity to make medical decisions. Oriented x 4. The patient refuses evaluation and treatment and wants to be discharged. The risks have been explained to the patient, including progression of possible worsening of current disease, worsening illness, chronic pain, permanent disability and . The benefits of evaluation and treatment have also been explained, including the availability and proximity of nurses, physicians, monitoring, diagnostic testing, and treatments. The patient was able to understand and state the risks and benefits of AMA.Patient had the opportunity to ask questions about their medical condition. He left hospital against medical advice. Admission Request Was there a request for admission?: No Disposition Plan Disposition Plan: other (specify) Discharge Plan Plan Patient Disposition: Left Against Medical Advice Prescriptions/Referrals Prescriptions/Med Rec: New doxycycline hyclate 100 mg capsule 100 mg PO BID Qty: 14 0RF No Action hydrocodone-acetaminophen [Farber] 10-325 mg tablet 1 tab PO Q6H MDD 4g Acetaminophen PRN (Reason: pain) Qty: 20 0RF Tradjenta 5 mg Tablet 5 mg PO QDAY aspirin [Aspir-Low] 81 mg Tablet,Delayed Release (Dr/Ec) 81 mg PO QDAY Qty: 30 0RF gabapentin 300 mg capsule 300 mg PO TID Patient Comments: TAKE 1 CAPSULE BY MOUTH THREE TIMES A DAY FOR 30 DAYS hydralazine 25 mg tablet 25 mg PO TID Patient Comments: TAKE 1 TABLET BY MOUTH THREE TIMES A DAY WITH FOOD FOR 30 DAYS isosorbide dinitrate 5 mg tablet 5 mg PO BID Patient Comments: TAKE 1 TABLET BY MOUTH TWICE A DAY FOR 30 DAYS tamsulosin 0.4 mg capsule 0.4 mg PO QDAY Patient Comments: TAKE 1 CAPSULE BY MOUTH EVERY DAY FOR 30 DAYS gemfibrozil 600 mg tablet 600 mg PO BID Patient Comments: TAKE 1 TABLET BY MOUTH TWICE A DAY clopidogrel 75 mg tablet 75 mg PO QDAY Patient Comments: TAKE 1 TABLET BY MOUTH EVERY DAY FOR 30 DAYS lidocaine [Lidoderm] 5 % adhesive patch,medicated 1 patch topical QDAY Qty: 15 0RF Rx Instructions: leave on most painful area for up to 12 hrs cyclobenzaprine 5 mg tablet 5 mg PO QHSPRN PRN (Reason: muscle spasm) Qty: 10 0RF Eliquis 5 mg Tablet 5 mg PO BID Levemir FlexPen 100 unit/mL (3 mL) insulin pen 30 unit SUBCUT QDAY 30 Days Qty: 9 0RF Patient Comments: INJECT 20 UNITS SUBCUTANEOUSLY ONCE A DAY insulin lispro [Humalog KwikPen Insulin] 100 unit/mL insulin pen 8 unit subcut TIDWM Qty: 15 0RF furosemide [Lasix] 40 mg tablet 40 mg PO QAM Qty: 3 0RF hydrocodone-acetaminophen 5-325 mg tablet 1 tab PO BID MDD 2 PRN (Reason: pain) Qty: 7 0RF metolazone 5 mg tablet 5 mg PO QDAY Qty: 5 0RF spironolactone [Aldactone] 25 mg tablet 25 mg PO QDAY Qty: 5 0RF cephalexin 500 mg capsule 500 mg PO Q8H Qty: 15 0RF lorazepam [Ativan] 1 mg tablet 1 mg PO BID PRN (Reason: anxiety) Qty: 10 0RF amoxicillin-pot clavulanate 875-125 mg tablet 1 tab PO Q12H Qty: 10 0RF Referrals: Pacheco (PCP)Rancho MD [Primary Care Provider] - In 1 week Problem List Clinical Impression: Chronic osteomyelitis of toe Patient/Caregiver Discharge Instructions Print Language: Sami
--- NOTE | 2025-03-04 21:55 | PC.NURSE ---
PT ALERT AND ORIENTED SIGNING OUT AMA. PT DOES NOT WANT TOO STAY AND GET IV FLUIDS, DOES NOT WANT TO WAIT ANY LONGER. STATES WAS HERE TOO LONG ALREADY AND WANTS TO GO HOME. PT INFORMED OF RISKS OF LEAVING INCLUDING UP TO . PT ENCOURAGED TO STAY, INFORMED TO RETURN FOR ANY WORSENING OF SYMPTOMS. PT AND VERBALIZED UNDERSTANDING OF INSTRUCTIONS GIVEN.
[2025-03-04 22:55] LABS: Reflex Lactate? Y
== END 2025-03-04 22:10 | disposition left against medical advice (07) ==
PROVIDERS: Physician Assistant; Emergency Provider Emergency Medicine; PCP Family Medicine
DX: E11.69 Type 2 diabetes mellitus with other specified complication (principal); M86.672 Other chronic osteomyelitis, left ankle and foot; I25.10 Atherosclerotic heart disease of native coronary artery without angina pectoris; I48.20 Chronic atrial fibrillation, unspecified; N18.9 Chronic kidney disease, unspecified; E11.22 Type 2 diabetes mellitus with diabetic chronic kidney disease; R94.31 Abnormal electrocardiogram [ECG] [EKG]
CPT/HCPCS: 36415; 70450; 71045; 73660; 80053; 80307; 81001; 83605; 83735; 83880; 84145; 84484; 85025; 85610; 85652; 85730; 86140; 93005; 99284

== ENCOUNTER 2025-06-21 00:32 | Emergency (ER) | payer MEDICAID, SELFPAY ==
--- NOTE | 2025-06-21 00:35 | EKG_ITS ---
[facility] Test Date: 2025-06-21 Pat Name: CARRIE SOMMERS Department: Room: - Gender: Male [employer] Super[employer]: : [id number] Requested By: ED Temporary Provider Order Number: [id number] Reading MD: ED Temporary Provider Measurements Intervals Gibson Rate: 89 P: CA: QRS: 233 QRSD: 166 T: 37 QT: 419 QTc: 511 Interpretive Statements ELECTRONIC VENTRICULAR PACEMAKER ABNORMAL RHYTHM ECG Compared to ECG 03/04/2025 19:13:06 No significant changes /store/S0/[id number].pdf
[2025-06-21 00:37] VITALS: BP 139/89; PULSE 95; RESP 18; TEMP 36.6; O2SAT 97
[2025-06-21 00:46] VITALS: BMI 28.2
--- NOTE | 2025-06-21 00:46 | XR_ITS ---
Examination: AP chest single view Technique one AP portable upright chest single view Date and time: June 21, 2025, 0134 hrs., Comparison March 04, 2025 Indications: Onset chest pain today. Findings: Mild to moderate enlargement left ventricle. CABG. Moderate vascular congestion. Early septal edema at the lung bases. No lobar pneumonia. Prominent osteopenia Impression: Early heart failure
--- NOTE | 2025-06-21 00:46 | XR_ITS ---
Examination: CT brain head without contrast. 2-D sagittal coronal reconstructions Date and time of exam:June 21, 2025, 0117 hrs., Comparison March 04, 2025 Indications: Head injury after defibrillator shock yesterday CTDI: vol (mGy):56.90 DLP: (mGycm):1190 Technique: Multiple CT axial sections of the brain have been obtained, 5 mm slice thickness. Contrast has not been administered. 2-D sagittal, coronal reconstructions have been obtained Low dose protocols were performed. One or more of the following dose reduction techniques were used; automated exposure control, adjustment of the mA and/or KV according to patient size, use of iterative reconstruction technique. Findings: No significant ventricular enlargement. Intra-axial or extra-axial hemorrhage density is not seen. No mass effect or midline shift Basal cisterns are not remarkable. Fourth ventricle is midline. Cranial vault intact. Impression: Negative for acute hemorrhage, mass effect or midline shift
--- NOTE | 2025-06-21 00:46 | XR_ITS ---
Examination: CT cervical spine without contrast 2-D sagittal reconstructions 2-D coronal reconstructions 3-D reconstructions. Exam date and time:June 21, 2025, 0119 hrs. Indications: Neck pain after receiving defibrillator shock yesterday CTDI:vol (mGy) 17.56 DLP: (mGycm) 425 Technique: Multiple 2 mm axial sections of the cervical spine have been obtained. The coronal and sagittal reconstructions have been obtained. 3-D reconstructions have been obtained. Low dose protocols were performed. One or more of the following dose reduction techniques were used; automated exposure control, adjustment of the mA and/or KV according to patient size, use of iterative reconstruction technique. Findings: Axial sections demonstrate intact base of the skull. C1 exhibit satisfactory relationship to the odontoid. No acute cervical vertebral body fracture seen. Alignment posterior spinous processes satisfactory. Advanced degenerative disc disease C5-C6, C6-C7 with spinal stenosis Impression: No acute cervical fracture. Degenerative disc disease, advanced, C5-C6, C6-C7 with significant spinal stenosis, as clinically warranted, consider MRI cervical spine follow-up
--- NOTE | 2025-06-21 00:47 | PD.EDADULT ---
ED General RME/HPI General Chief complaint: General Adult/Misc Complain Stated complaint: DEFIBLATOR SHOCKING Time Seen by Provider: 06/21/25 00:38 Arrival date/time: 06/21/25 00:32 RME / HPI RME / HPI narrative: 59-year-old male patient with significant history of ICD placement, hypertension diabetes mellitus, A-fib with RVR, status post CABG, was brought in by family for evaluation regarding headache and neck pain. Patient been sore since yesterday, patient had 1 episode of shock from his ICD and threw him to the ground while sitting. He called Dr. Hendrickson, patient's chip machine operator, and was advised to go to the emergency room if another episode of shock happened. There was no follow-through. However patient came in because he cannot sleep having headache and having neck pain. Patient denies any chest pain. Denies any other complaint he had an appointment with his chip machine operator in 2 days. According to the family patient looks anxious and worried that another shock will happen. Related Data Home Medications ?Medication ?Instructions ?Recorded ?Confirmed linagliptin 5 mg tablet (Tradjenta) 5 mg PO QDAY 10/19/20 07/04/23 clopidogrel 75 mg tablet 75 mg PO QDAY 07/04/23 09/19/23 gabapentin 300 mg capsule 300 mg PO TID 07/04/23 09/19/23 gemfibrozil 600 mg tablet 600 mg PO BID 07/04/23 09/19/23 hydralazine 25 mg tablet 25 mg PO TID 07/04/23 09/19/23 isosorbide dinitrate 5 mg tablet 5 mg PO BID 07/04/23 09/19/23 tamsulosin 0.4 mg capsule 0.4 mg PO QDAY 07/04/23 09/19/23 apixaban 5 mg tablet (Eliquis) 5 mg PO BID 09/19/23 09/19/23 Previous Rx's ?Medication ?Instructions ?Recorded aspirin 81 mg tablet,delayed 81 mg PO QDAY #30 tabs 12/23/18 release (Aspir-Low) hydrocodone 10 mg-acetaminophen 1 tab PO Q6H PRN pain #20 tabs 04/04/19 325 mg tablet ([place]) cyclobenzaprine 5 mg tablet 5 mg PO QHSPRN PRN muscle spasm 09/13/23 #10 tabs lidocaine 5 % topical patch 1 patch topical QDAY #15 ea 09/13/23 (Lidoderm) insulin detemir U-100 100 unit/mL 30 unit (0.3 mL) subcut QDAY 30 09/23/23 (3 mL) subcutaneous pen (Levemir days #9 mL FlexPen) insulin lispro 100 unit/mL 8 unit (0.08 mL) subcut TIDWM #15 09/24/23 subcutaneous pen (Humalog KwikPen mL (U-100) Insulin) furosemide 40 mg tablet (Lasix) 40 mg PO QAM #3 tabs 02/18/24 hydrocodone 5 mg-acetaminophen 325 1 tab PO BID PRN pain #7 tabs 04/11/24 mg tablet amoxicillin 875 mg-potassium 1 tab PO Q12H #10 tabs 09/30/24 clavulanate 125 mg tablet cephalexin 500 mg capsule 500 mg PO Q8H #15 caps 01/20/25 lorazepam 1 mg tablet (Ativan) 1 mg PO BID PRN anxiety #10 tabs 01/20/25 metolazone 5 mg tablet 5 mg PO QDAY #5 tabs 01/20/25 spironolactone 25 mg tablet 25 mg PO QDAY #5 tabs 01/20/25 (Aldactone) doxycycline hyclate 100 mg capsule 100 mg PO BID #14 caps 03/04/25 lorazepam 1 mg tablet (Ativan) 1 mg PO BID PRN anxiety #14 tabs 06/21/25 methocarbamol 500 mg tablet 500 mg PO Q8H PRN muscle spasm #20 06/21/25 tabs Allergies Allergy/AdvReac Type Severity Reaction Status Date / Time clonidine Allergy Severe SWELLING Verified 06/21/25 00:42 nut - unspecified Allergy Severe Swelling Verified 06/21/25 00:42 Review of Systems Review of Systems Narrative Review of Systems: Review of system reviewed and within normal limits except mentioned in HPI ED Exam Narrative Physical exam: VITAL SIGNS: Reviewed. GENERAL APPEARANCE: Alert and interactive, follows commands, no acute distress, HEAD AND FACE: Non-traumatic. ENT: PERRL, pink conjunctivitis, eyelid no trauma, Mucous membrane moist. NECK: Supple, posterior neck pain, no nuchal rigidity. CHEST: No tenderness, no crepitus, no paradoxical movement, no retractions. Right chest wall pacemaker noted LUNGS: Clear, well ventilated, symmetric, no rales, no wheezing, no ronchi, no stridor, good breath sounds bilaterally. HEART: Regular rate, regular rhythm, no murmur, no gallops. ABDOMEN: Soft, positive bowel sounds, nondistended, no guarding, nontender, no rebound, no masses, RECTAL: Deferred. GENITAL: Deferred. NEUROLOGICAL: Gross motor function intact sensory function intact, Appropriate for age. MUSCULOSKELETAL: low back nontender, full range of motion. EXTREMITIES: Nontender, full range of motion. SKIN: Color pink, dry, no rash, no lacerations, no abrasions, no contusions. LYMPHATICS: Deferred. Course Quality Measures none Orders Category Date Time Status EKG (ED ONLY) *Do not use* NOW Care 06/21/25 00:[address] cervical spine wo con Stat Exams 06/21/25 00:[address] head/brain wo con Stat Exams 06/21/25 00:46 Taken EKG (ED Only) Stat Exams 06/21/25 00:35 Draft XR chest 1V Stat Exams 06/21/25 00:46 Taken B-Type Natriuretic Peptide Stat Lab 06/21/25 00:50 Completed CBC Stat Lab 06/21/25 00:50 Completed Comprehensive Metabolic Panel Stat Lab 06/21/25 00:50 Completed Partial Thromboplastin Time Stat Lab 06/21/25 00:50 Completed Prothrombin Time with INR Stat Lab 06/21/25 00:50 Completed Troponin I Stat Lab 06/21/25 00:50 Completed Urinalysis, C/S if Indicated Stat Lab 06/21/25 00:46 Stop Req LORazepam [Ativan] Med 06/21/25 00:46 Discontinued 0.5 mg PO X1 ONE Morphine* Inj Med 06/21/25 00:47 Discontinued 4 mg IVP X1 ONE Vital Signs Vital signs: Vital Signs Temperature 97.9 F 06/21/25 00:37 Pulse Rate 95 06/21/25 00:37 Respiratory Rate 18 06/21/25 00:37 Blood Pressure 139/89 H 06/21/25 00:37 Pulse Oximetry (%) 97 06/21/25 00:37 Oxygen Delivery Method Room Air 06/21/25 00:37 Discharge Plan Plan Patient Disposition: HOME (Self Care) Discharge Disposition comment: Stable Prescriptions/Referrals Prescriptions/Med Rec: New lorazepam [Ativan] 1 mg tablet 1 mg PO BID PRN (Reason: anxiety) Qty: 14 0RF methocarbamol 500 mg tablet 500 mg PO Q8H PRN (Reason: muscle spasm) Qty: 20 0RF No Action hydrocodone-acetaminophen [[place]] 10-325 mg tablet 1 tab PO Q6H MDD 4g Acetaminophen PRN (Reason: pain) Qty: 20 0RF Tradjenta 5 mg Tablet 5 mg PO QDAY aspirin [Aspir-Low] 81 mg Tablet,Delayed Release (Dr/Ec) 81 mg PO QDAY Qty: 30 0RF gabapentin 300 mg capsule 300 mg PO TID Patient Comments: TAKE 1 CAPSULE BY MOUTH THREE TIMES A DAY FOR 30 DAYS hydralazine 25 mg tablet 25 mg PO TID Patient Comments: TAKE 1 TABLET BY MOUTH THREE TIMES A DAY WITH FOOD FOR 30 DAYS isosorbide dinitrate 5 mg tablet 5 mg PO BID Patient Comments: TAKE 1 TABLET BY MOUTH TWICE A DAY FOR 30 DAYS tamsulosin 0.4 mg capsule 0.4 mg PO QDAY Patient Comments: TAKE 1 CAPSULE BY MOUTH EVERY DAY FOR 30 DAYS gemfibrozil 600 mg tablet 600 mg PO BID Patient Comments: TAKE 1 TABLET BY MOUTH TWICE A DAY clopidogrel 75 mg tablet 75 mg PO QDAY Patient Comments: TAKE 1 TABLET BY MOUTH EVERY DAY FOR 30 DAYS lidocaine [Lidoderm] 5 % adhesive patch,medicated 1 patch topical QDAY Qty: 15 0RF Rx Instructions: leave on most painful area for up to 12 hrs cyclobenzaprine 5 mg tablet 5 mg PO QHSPRN PRN (Reason: muscle spasm) Qty: 10 0RF Eliquis 5 mg Tablet 5 mg PO BID Levemir FlexPen 100 unit/mL (3 mL) insulin pen 30 unit SUBCUT QDAY 30 Days Qty: 9 0RF Patient Comments: INJECT 20 UNITS SUBCUTANEOUSLY ONCE A DAY insulin lispro [Humalog KwikPen Insulin] 100 unit/mL insulin pen 8 unit subcut TIDWM Qty: 15 0RF furosemide [Lasix] 40 mg tablet 40 mg PO QAM Qty: 3 0RF hydrocodone-acetaminophen 5-325 mg tablet 1 tab PO BID MDD 2 PRN (Reason: pain) Qty: 7 0RF metolazone 5 mg tablet 5 mg PO QDAY Qty: 5 0RF spironolactone [Aldactone] 25 mg tablet 25 mg PO QDAY Qty: 5 0RF cephalexin 500 mg capsule 500 mg PO Q8H Qty: 15 0RF lorazepam [Ativan] 1 mg tablet 1 mg PO BID PRN (Reason: anxiety) Qty: 10 0RF doxycycline hyclate 100 mg capsule 100 mg PO BID Qty: 14 0RF amoxicillin-pot clavulanate 875-125 mg tablet 1 tab PO Q12H Qty: 10 0RF Problem List Clinical Impression: Headache, Neck pain Patient/Caregiver Discharge Instructions Discharge Activity: activity as tolerated Education Materials: ED Neck Pain Additional Instructions: Thank you for the opportunity for serving you today. You are stable for discharged . You are advised to: Follow-up with your PCP in 1 to 2 days Return to ED for worsening of symptoms Increase oral fluids Take medication as prescribed Print Language: Portuguese Stand Alone Forms: [email or web address] Award Info., Patient Portal Info Letter PA/ADRY Supervising Physician PA/ADRY Supervising Physician: MD Juanita MDM Narrative MDM hospital course (for use when minimal MDM required): 59-year-old male patient with significant history of AICD placement, hypertension diabetes mellitus, A-fib with RVR, status post CABG, was brought in by family for evaluation regarding headache and neck pain. Patient been sore since yesterday, patient had 1 episode of shock from his AICD and threw him to the ground while sitting. He called Dr. Hendrickson, patient's chip machine operator, and was advised to go to the emergency room if another episode of shock happened. There was no follow-through. However patient came in because he cannot sleep having headache and having neck pain. Patient denies any chest pain. Denies any other complaint he had an appointment with his chip machine operator in 2 days. According to the family patient looks anxious and worried that another shock will happen. Pacemaker interrogation at 1:30 AM initial report did not show anything. Patient was given morphine, Ativan, with significant improvement of symptoms. Patient is not having symptoms and ready to go home. Patient is scheduled to see chip machine operator in 2 days Patient's workup today all came back unremarkable including CT scan of the head and CT scan of the neck. Stable for discharge home Medication Administration(s) Medication Administration History Discontinued Medications Lorazepam (Lorazepam 0.5 Mg Tablet) 0.5 mg PO X1 ONE Stop: 06/21/25 00:47 Last Admin: 06/21/25 01:04 Dose: 0.5 mg Documented By: EARLENE Morphine Sulfate (Morphine Sulf Inj 4 Mg/Ml Vial) 4 mg IVP X1 ONE Stop: 06/21/25 00:48 Last Admin: 06/21/25 01:03 Dose: 4 mg Documented By: EARLENE Diagnosis Differential Diagnosis ED Complaint MDM: Neck pain, headache, history of pacemaker shock Diagnoses ruled out and/or further discussions: Neck pain, headache, history of pacemaker shock
[2025-06-21] MEDS: MORPHINE SULF INJ 4 MG/ML VIAL IVP (01:03)
[2025-06-21 01:10] LABS: Basophils # (Auto) 0.1 Thou/mm3 (0.0-0.2); Basophils % (Auto) 1 % (0-2.5); Eosinophils # (Auto) 0.4 Thou/mm3 (0.0-0.5); Eosinophils % (Auto) 4 % (0-10); Hematocrit 42.2 % (41.0-53.0); Hemoglobin 14.7 g/dL (13.5-16.0); Immature Granulocytes Auto 0.03 Thou/mm3 (0.00-0.00); Lymphocytes # (Auto) 2.8 Thou/mm3 (1.0-4.8); Lymphocytes % (Auto) 31 % (10-50); Mean Corpuscular HGB Conc 34.8 g/dl (31.0-37.0); Mean Corpuscular Hemoglobin 31.3 pg (25.0-35.0); Mean Corpuscular Volume 90 fL (80-100); Monocytes # (Auto) 0.7 Thou/mm3 (0.0-0.8); Monocytes % (Auto) 8 % (0-12); Neutrophils # (Auto) 5.0 Thou/mm3 (1.8-7.7); Neutrophils % (Auto) 56 % (37-80); Nucleated Red Blood Cell # 0.00 Thou/mm3 (0.00-0.00); Nucleated Red Blood Cell % 0 /100 WBC (0); Platelet Count 222 Thou/mm3 (140-440); RDW Standard Deviation 42.9 fL (35.1-43.9); Red Blood Count 4.70 Miln/mm3 (4.50-5.90); White Blood Count 9.0 Thou/mm3 (3.8-10.6)
[2025-06-21 01:23] LABS: INR 1.1 (0.9-1.3); Partial Thromboplastin Time 29.3 Seconds (22.0-36.0); Prothrombin Time 11.4 Seconds (9.0-12.2)
[2025-06-21 01:24] LABS: Alanine Aminotransferase 17 U/L (10-49); Albumin, Serum 4.4 gm/dL (3.5-5.0); Albumin/Globulin Ratio 1.2 (1.2-2.2); Alkaline Phosphatase 109 U/L (46-116); Anion Gap 12 (7-16); Aspartate Amino Transferase 18 U/L (0-34); BUN/Creatinine Ratio 20 Ratio (12-20); Bilirubin,Total 1.0 mg/dL (0.3-1.2); Blood Urea Nitrogen 32 mg/dL (9-23); Calcium 9.6 mg/dL (8.3-10.6); Calcium (Corrected) 9.6 mg/dL (8.5-10.1); Carbon Dioxide 25.4 mMol/L (20.0-31.0); Chloride 101 mMol/L (98-107); Creatinine (Component) 1.6 mg/dL (0.6-1.3); Estimated Creatinine Clearance 64.3 mL/min (>60); Globulin 3.8 gm/dL (2.3-3.5); Glucose 279 mg/dL (74-106); Osmolality,Calculated 292 (275-295); Potassium 4.6 mMol/L (3.4-5.1); Sodium 138 mMol/L (136-145); Total Protein 8.2 gm/dL (5.7-8.2); Troponin I 0.029 ng/mL (0.0-0.045); eGFR 50 See Note
[2025-06-21 01:32] LABS: B-Type Natriuretic Peptide 163 pg/mL (0-100)
[2025-06-21 02:06] VITALS: BP 139/91; PULSE 100; RESP 19; TEMP 36.7; O2SAT 98
--- NOTE | 2025-06-21 02:07 | PRELIM_ITS ---
CT scan of the head without intravenous contrast (axial sections with sagittal and coronal reformats) June 21, 2025 0117 hours Clinical History: head injury No prior study is available for comparison. Findings: No evidence of intracranial hemorrhage, mass effect or midline shift. The ventricles and CSF spaces are unremarkable. The calvarium is intact. The mastoid air cells and the visualized paranasal sinuses are clear. Impression: No evidence of intracranial hemorrhage, midline shift or calvarial fracture. Report Electronically Signed By: Naren Greco 06/21/2025 2:07:14 AM [EST]
--- NOTE | 2025-06-21 02:14 | PRELIM_ITS ---
CT scan of the cervical spine without intravenous contrast (axial sections with sagittal and coronal reformats) June 21, 2025 0119 hours Clinical History: neck pain No prior study is available for comparison. Findings: There is no fracture or traumatic subluxation. There is a disc bulge at the C5- C6 level causing mild spinal canal stenosis and bilateral neural foraminal stenosis.There are multilevel mild to moderate degenerative changes in the form of marginal osteophytes, decreased disc height and facet arthrosis .C5-C6 and C6-C7 disc osteophyte complexes are noted with associated uncinate hypertrophy causing moderate to marked spinal canal and bilateral neural foraminal narrowing. The prevertebral soft tissues are unremarkable. Impression: No evidence of fracture or traumatic subluxation. Moderate to marked spinal canal and bilateral neural foraminal narrowing at C5-C6 and C6-C7. Recommend further evaluation with MRI, as clinically indicated. Report Electronically Signed By: Naren Greco 06/21/2025 2:13:55 AM [EST]
--- NOTE | 2025-06-21 02:40 | PC.NURSE ---
Called [employer] spoke to [employer] new accounts banking representative to ask about report for [employer] pacemaker. Per [employer] they are behind on reports. Patient is number [phone] and report will be faxed as soon as possible. Informed the provider.
[2025-06-21 02:58] VITALS: BP 140/86; PULSE 85; RESP 16; TEMP 36.7; O2SAT 98
== END 2025-06-21 02:59 | disposition home or self-care (01) ==
LOC: SERX 02:56
PROVIDERS: Nurse Practitioner Family; Emergency Provider Emergency Medicine; PCP Family Medicine
DX: R51.9 Headache, unspecified (principal); M54.2 Cervicalgia; Z95.1 Presence of aortocoronary bypass graft; I48.91 Unspecified atrial fibrillation; E11.9 Type 2 diabetes mellitus without complications; I10 Essential (primary) hypertension
CPT/HCPCS: 36415; 70450; 71045; 72125; 80053; 81001; 83880; 84484; 85025; 85610; 85730; 93005; 96374; 99285; J2270; A9270

== ENCOUNTER 2025-07-06 12:03 | Inpatient (IN) | payer MEDICAID, SELFPAY ==
--- NOTE | 2025-07-06 12:10 | EKG_ITS ---
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
--- NOTE | 2025-07-06 12:11 | PC.NURSE ---
Patient from [facility] and taken to room 2 with c/o defrillator went off x1 at 11am, currently patient alert and oriented x 3, Dr. Johnson at bedside.
[2025-07-06 12:12] VITALS: BP 110/72; PULSE 88; RESP 16; TEMP 37; O2SAT 97
[2025-07-06 12:17] VITALS: BMI 28.6
--- NOTE | 2025-07-06 12:18 | PD.EDADULT ---
ED General RME/HPI General Chief complaint: Chest Pain Stated complaint: DEFIBRILLATOR FIRING Time Seen by Provider: 07/06/25 12:11 Arrival date/time: 07/06/25 12:03 RME / HPI RME / HPI narrative: 59 year old male with history of [id number]% (09/2023), CAD, atrial fibrillation, s/p pacemaker placement, hypertension, diabetes, hyperlipidemia presents to the ED for evaluation following his defibrillator firing this morning. States he was asleep when it fired at 11:00 AM. In the ED, he complains of a mild soreness sensation to his chest. Additionally complains of right lower extremity pain. States the pain began months ago though feels it was exacerbated today. States he is dealing with an infection to the right great toe that initially was being treated at the [facility]. However, states his PCP referred him to a new buttermaker continuous churn weeks ago which he has yet to see. states they have been cleaning the wound at home and noticed the redness worsening days back which he took old antibiotics for. Denies fevers, chills, cough, shortness of breath, abdominal pain, n/v/d, or urinary symptoms. Legal Nurse Consultant: Dr. Hendrickson and Dr. Begum. 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 Related Data Home Medications ?Medication ?Instructions ?Recorded ?Confirmed linagliptin 5 mg tablet (Tradjenta) 5 mg PO QDAY 10/19/20 07/04/23 clopidogrel 75 mg tablet 75 mg PO QDAY 07/04/23 09/19/23 gabapentin 300 mg capsule 300 mg PO TID 07/04/23 09/19/23 gemfibrozil 600 mg tablet 600 mg PO BID 07/04/23 09/19/23 hydralazine 25 mg tablet 25 mg PO TID 07/04/23 09/19/23 isosorbide dinitrate 5 mg tablet 5 mg PO BID 07/04/23 09/19/23 tamsulosin 0.4 mg capsule 0.4 mg PO QDAY 07/04/23 09/19/23 apixaban 5 mg tablet (Eliquis) 5 mg PO BID 09/19/23 09/19/23 Previous Rx's ?Medication ?Instructions ?Recorded aspirin 81 mg tablet,delayed 81 mg PO QDAY #30 tabs 12/23/18 release (Aspir-Low) hydrocodone 10 mg-acetaminophen 1 tab PO Q6H PRN pain #20 tabs 04/04/19 325 mg tablet ([place]) cyclobenzaprine 5 mg tablet 5 mg PO QHSPRN PRN muscle spasm 09/13/23 #10 tabs lidocaine 5 % topical patch 1 patch topical QDAY #15 ea 09/13/23 (Lidoderm) insulin detemir U-100 100 unit/mL 30 unit (0.3 mL) subcut QDAY 30 09/23/23 (3 mL) subcutaneous pen (Levemir days #9 mL FlexPen) insulin lispro 100 unit/mL 8 unit (0.08 mL) subcut TIDWM #15 09/24/23 subcutaneous pen (Humalog KwikPen mL (U-100) Insulin) furosemide 40 mg tablet (Lasix) 40 mg PO QAM #3 tabs 02/18/24 hydrocodone 5 mg-acetaminophen 325 1 tab PO BID PRN pain #7 tabs 04/11/24 mg tablet amoxicillin 875 mg-potassium 1 tab PO Q12H #10 tabs 09/30/24 clavulanate 125 mg tablet cephalexin 500 mg capsule 500 mg PO Q8H #15 caps 01/20/25 lorazepam 1 mg tablet (Ativan) 1 mg PO BID PRN anxiety #10 tabs 01/20/25 metolazone 5 mg tablet 5 mg PO QDAY #5 tabs 01/20/25 spironolactone 25 mg tablet 25 mg PO QDAY #5 tabs 01/20/25 (Aldactone) doxycycline hyclate 100 mg capsule 100 mg PO BID #14 caps 03/04/25 lorazepam 1 mg tablet (Ativan) 1 mg PO BID PRN anxiety #14 tabs 06/21/25 methocarbamol 500 mg tablet 500 mg PO Q8H PRN muscle spasm #20 06/21/25 tabs Allergies Allergy/AdvReac Type Severity Reaction Status Date / Time clonidine Allergy Severe SWELLING Verified 07/06/25 12:06 nut - unspecified Allergy Severe Swelling Verified 07/06/25 12:06 Review of Systems Review of Systems Systems Reviewed: All systems reviewed, normal except as documented Past Medical History Past Medical History NEUROLOGIC: Positive Meningitis CARDIAC: Positive Cardiac Disorders, Myocardial Infarction, Atrial Fibrillation, Coronary Artery Disease, Hypercholesterolemia, Congestive Heart Failure and Hypertension RESPIRATORY: Positive Pneumonia GASTROINTESTINAL: Positive Gastrointestinal Bleed GENITOURINARY: Positive Genitourinary Disorders and Kidney Stones MUSCULOSKELETAL: Positive Musculoskeletal Disorders, Degenerative Disk Disease and Osteomyelitis ENDOCRINE: Positive Endocrine Disorders and Diabetes Mellitus Type 2 OTHER HISTORY: Positive MRSA Family History FAMILY HISTORY: Positive Family Cancer Surgical History SURGICAL: Positive Cardiac Surgery, Open Heart Surgery, Coronary Artery Bypass Graft and Pacemaker Social History SMOKING STATUS: Never smoker SECOND HAND EXPOSURE: Yes SUBSTANCE USE: marijuana, crack/cocaine and methamphetamine ED Exam Narrative Physical exam: GENERAL APPEARANCE: alert and oriented x 4, well-developed, well-nourished, no acute distress HEENT: Normocephalic, atraumatic; pupils equal, round, reactive to light; EOMI; mucous membranes pink, moist; oropharynx clear NECK: Supple LUNGS: CTABL; no wheezes, no rales, no rhonchi HEART: Paced rhythm; normal S1, S2; no murmurs ABDOMEN: non distended; normal BS; soft, no tenderness, no guarding, no rebound; no masses, no organomegaly, no hernia BACK: no CVA tenderness EXTREMITIES: Thick callous on the base of the first right toe, minimal eschar, tender to palpation; no edema NEUROLOGIC: awake; alert and oriented x4; cranial nerves II-XII grossly intact; no focal sensory or motor deficits PSYCHIATRIC: appropriate mood and affect SKIN: warm, dry, normal color; no rashes Course Course Course Narrative: I spoke with hospitalist team A for admission. 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 Q4H START 00 Care 07/06/25 12:17 Completed EKG (ED ONLY) *Do not use* NOW Care 07/06/25 12:10 Completed IV [Insert IV] NOW Care 07/06/25 12:17 Active Miscellaneous Nursing Order NOW Care 07/06/25 13:23 Active EKG (ED Only) Stat Exams 07/06/25 12:10 Draft XR chest 1V portable Stat Exams 07/06/25 12:17 Completed XR foot comp RT min 3V Stat Exams 07/06/25 12:17 Completed B-Type Natriuretic Peptide Stat Lab 07/06/25 12:18 Completed Beta Hydroxybutyrate Stat Lab 07/06/25 17:19 Ordered CBC Stat Lab 07/06/25 12:18 Completed Comprehensive Metabolic Panel Stat Lab 07/06/25 12:18 Completed Drug Screen,Urine Stat Lab 07/06/25 14:50 Completed ESR [Sed Rate (ESR)] Stat Lab 07/06/25 12:18 Completed Hemoglobin A1C [Glycohemoglobin w (eAG)] Stat Lab 07/06/25 12:18 Completed Lactate (Lactic Acid) Stat Lab 07/06/25 16:38 Ordered Lipase Stat Lab 07/06/25 12:18 Completed Magnesium Stat Lab 07/06/25 12:18 Completed Partial Thromboplastin Time Stat Lab 07/06/25 12:18 Completed Procalcitonin Stat Lab 07/06/25 12:18 Completed Prothrombin Time with INR Stat Lab 07/06/25 12:18 Completed Troponin I Stat Lab 07/06/25 12:18 Completed UA, C/S IF [Urinalysis, C/S if Indicated] Stat Lab 07/06/25 14:50 Completed VBG [Venous Blood Gas] Stat Lab 07/06/25 17:19 Ordered INSULIN LISPRO (AdmeLOG) [HumaLOG] Med 07/06/25 17:19 Discontinued 10 unit SC X1 ONE Insulin Regular Med 07/06/25 13:07 Discontinued 5 unit IV X1 ONE Piper/Tazo 3.375 gm Premix [Zosyn] Med 07/06/25 14:10 Discontinued 3.375 gm in 50 ml IV X1 Ringers Lactated 1000 ml [Lactated Ringers] 1,000 ml Med 07/06/25 17:19 Active IV 999 mls/hr Vancomycin/Ns 1 gm Ivpb 200 ml Med 07/06/25 14:10 Discontinued IV X1 Vital Signs Vital signs: Vital Signs Temperature 98.6 F 07/06/25 12:12 Pulse Rate 88 07/06/25 12:12 Respiratory Rate 16 07/06/25 12:12 Blood Pressure 110/72 07/06/25 12:12 Pulse Oximetry (%) 97 07/06/25 12:12 Oxygen Delivery Method Room Air 07/06/25 12:12 Pulse ox is 97% on room air which is adequate. Discharge Plan Plan Patient Disposition: Admit Acute Care w/in Hospital Prescriptions/Referrals Prescriptions/Med Rec: No Action hydrocodone-acetaminophen [[place]] 10-325 mg tablet 1 tab PO Q6H MDD 4g Acetaminophen PRN (Reason: pain) Qty: 20 0RF Tradjenta 5 mg Tablet 5 mg PO QDAY aspirin [Aspir-Low] 81 mg Tablet,Delayed Release (Dr/Ec) 81 mg PO QDAY Qty: 30 0RF gabapentin 300 mg capsule 300 mg PO TID Patient Comments: TAKE 1 CAPSULE BY MOUTH THREE TIMES A DAY FOR 30 DAYS hydralazine 25 mg tablet 25 mg PO TID Patient Comments: TAKE 1 TABLET BY MOUTH THREE TIMES A DAY WITH FOOD FOR 30 DAYS isosorbide dinitrate 5 mg tablet 5 mg PO BID Patient Comments: TAKE 1 TABLET BY MOUTH TWICE A DAY FOR 30 DAYS tamsulosin 0.4 mg capsule 0.4 mg PO QDAY Patient Comments: TAKE 1 CAPSULE BY MOUTH EVERY DAY FOR 30 DAYS gemfibrozil 600 mg tablet 600 mg PO BID Patient Comments: TAKE 1 TABLET BY MOUTH TWICE A DAY clopidogrel 75 mg tablet 75 mg PO QDAY Patient Comments: TAKE 1 TABLET BY MOUTH EVERY DAY FOR 30 DAYS lidocaine [Lidoderm] 5 % adhesive patch,medicated 1 patch topical QDAY Qty: 15 0RF Rx Instructions: leave on most painful area for up to 12 hrs cyclobenzaprine 5 mg tablet 5 mg PO QHSPRN PRN (Reason: muscle spasm) Qty: 10 0RF Eliquis 5 mg Tablet 5 mg PO BID Levemir FlexPen 100 unit/mL (3 mL) insulin pen 30 unit SUBCUT QDAY 30 Days Qty: 9 0RF Patient Comments: INJECT 20 UNITS SUBCUTANEOUSLY ONCE A DAY insulin lispro [Humalog KwikPen Insulin] 100 unit/mL insulin pen 8 unit subcut TIDWM Qty: 15 0RF furosemide [Lasix] 40 mg tablet 40 mg PO QAM Qty: 3 0RF hydrocodone-acetaminophen 5-325 mg tablet 1 tab PO BID MDD 2 PRN (Reason: pain) Qty: 7 0RF metolazone 5 mg tablet 5 mg PO QDAY Qty: 5 0RF spironolactone [Aldactone] 25 mg tablet 25 mg PO QDAY Qty: 5 0RF cephalexin 500 mg capsule 500 mg PO Q8H Qty: 15 0RF lorazepam [Ativan] 1 mg tablet 1 mg PO BID PRN (Reason: anxiety) Qty: 10 0RF doxycycline hyclate 100 mg capsule 100 mg PO BID Qty: 14 0RF lorazepam [Ativan] 1 mg tablet 1 mg PO BID PRN (Reason: anxiety) Qty: 14 0RF methocarbamol 500 mg tablet 500 mg PO Q8H PRN (Reason: muscle spasm) Qty: 20 0RF amoxicillin-pot clavulanate 875-125 mg tablet 1 tab PO Q12H Qty: 10 0RF Referrals: Pacheco (PCP)Rancho MD [Primary Care Provider, Family Practice] - In 1 week Problem List Clinical Impression: Defibrillator discharge, Wound of foot, Osteomyelitis Patient/Caregiver Discharge Instructions Print Language: Hungarian Stand Alone Forms: Janki Award Info., Patient Portal Info Letter MDM Narrative MDM hospital course (for use when minimal MDM required): Ladan Dewey am scribing for and in the presence of Dr. Johnson. Clinical Information Provided by: patient and spouse Medical Records reviewed [facility] Meds/Rx considered, not ordered None Labs/Rad/Tests considered, not ordered None Chronic Illness/Social Conditions which may negatively complicate care or outcome(s)-explain: ETOH/drugs/substance abuse (hx of meth use ) EKG Interpretation EKG #1: EKG Interpretation: EKG @ 12:13pm. Ventricular paced rhythm, rate 81. Labs Labs: interpreted by [facility] Imaging Interpretation(s): Ordering Physician: Zuly Johnson MD Date of Service: 07/06/25 Procedure(s): XR chest 1V portable Accession Number(s): [id number] cc: David Andrew MD; Zuly Johnson MD~ EXAMINATION: AP chest single view TECHNIQUE: Portable upright AP chest single view Date and time: July 06 0 25, 1219 hours INDICATION: Shortness of breath today. FINDINGS: Mild prominence left ventricle. CABG. Cardiac leads satisfactory position. Mild vascular congestion. No lobar pneumonia IMPRESSION: Mild vascular congestion Dictated By: David Andrew MD Signed By: <Electronically signed by David Andrew MD in OV> 07/06/25 1237 Ordering Physician: Zuly Johnson MD Date of Service: 07/06/25 Procedure(s): XR foot comp RT min 3V Accession Number(s): [id number] cc: David Andrew MD; Zuly Johnson MD~ Examination: Foot, right, 3 views Technique: AP, oblique, lateral views foot, 3 views Date and time of exam: July 06, 2025, 1221 hours INDICATIONS: Redness swelling and pain involving the right foot today, diabetic FINDINGS: Erosions medial distal first metatarsal and base proximal phalanx first digit with associated soft tissue swelling Severe osteopenia Soft tissue vascular calcification IMPRESSION: Osteomyelitis first metatarsophalangeal joint, consider MRI foot without contrast Dictated By: David Andrew MD Signed By: <Electronically signed by David Andrew MD in OV> 07/06/25 1238 Medication Administration(s) Medication Administration History Lactated Ringer's (Lactated Ringers) 1,000 mls @ 999 mls/hr IV .Q1H1M ONE Stop: 07/06/25 18:19 Discontinued Medications Vancomycin/Sodium Chloride (Vancomycin/Ns 1 Gm Ivpb) 200 mls @ 120 mls/hr IV X1 ONE Stop: 07/06/25 15:49 Last Admin: 07/06/25 16:25 Dose: 120 mls/hr Documented By: TASHA Piperacillin/Tazobactam/Dextrose (Zosyn) 3.375 gm in 50 mls @ 100 mls/hr IV X1 ONE; Protocol Stop: 07/06/25 14:39 Last Infusion: 07/06/25 16:25 Dose: Infused Documented By: Admin: 07/06/25 15:45 Dose: 100 mls/hr Documented By: TASHA Insulin Human Lispro (Insulin Lispro (Admelog) 1 Unit/0.01 Ml Unit) 10 unit SC X1 ONE Stop: 07/06/25 17:20 Insulin Human Regular (Insulin Hum Regular 1 Unit/0.01 Ml (Per Unit)) 5 unit IV X1 ONE Stop: 07/06/25 13:08 Last Admin: 07/06/25 13:20 Dose: 5 unit Documented By: TASHA Co-signed By: JANELLE See above Diagnosis Diagnoses ruled out and/or further discussions: Diabetic foot wound Defibrillator discharge osteomyelitis
[2025-07-06 12:19] VITALS: PULSE 83
[2025-07-06 12:49] LABS: Basophils # (Auto) 0.1 Thou/mm3 (0.0-0.2); Basophils % (Auto) 1 % (0-2.5); Eosinophils # (Auto) 0.2 Thou/mm3 (0.0-0.5); Eosinophils % (Auto) 2 % (0-10); Hematocrit 38.7 % (41.0-53.0); Hemoglobin 13.6 g/dL (13.5-16.0); Immature Granulocytes Auto 0.07 Thou/mm3 (0.00-0.00); Lymphocytes # (Auto) 2.0 Thou/mm3 (1.0-4.8); Lymphocytes % (Auto) 16 % (10-50); Mean Corpuscular HGB Conc 35.1 g/dl (31.0-37.0); Mean Corpuscular Hemoglobin 31.4 pg (25.0-35.0); Mean Corpuscular Volume 89 fL (80-100); Monocytes # (Auto) 1.0 Thou/mm3 (0.0-0.8); Monocytes % (Auto) 8 % (0-12); Neutrophils # (Auto) 9.7 Thou/mm3 (1.8-7.7); Neutrophils % (Auto) 74 % (37-80); Nucleated Red Blood Cell # 0.00 Thou/mm3 (0.00-0.00); Nucleated Red Blood Cell % 0 /100 WBC (0); Platelet Count 282 Thou/mm3 (140-440); RDW Standard Deviation 43.8 fL (35.1-43.9); Red Blood Count 4.33 Miln/mm3 (4.50-5.90); White Blood Count 13.0 Thou/mm3 (3.8-10.6)
[2025-07-06 12:56] LABS: INR 1.1 (0.9-1.3); Partial Thromboplastin Time 36.2 Seconds (22.0-36.0); Prothrombin Time 12.0 Seconds (9.0-12.2)
[2025-07-06 13:01] LABS: Sed Rate (ESR) 84 mm/hr (0-20)
[2025-07-06 13:04] LABS: Alanine Aminotransferase 18 U/L (10-49); Albumin, Serum 4.3 gm/dL (3.5-5.0); Albumin/Globulin Ratio 1.0 (1.2-2.2); Alkaline Phosphatase 116 U/L (46-116); Anion Gap 16 (7-16); Aspartate Amino Transferase 33 U/L (0-34); BUN/Creatinine Ratio 16 Ratio (12-20); Bilirubin,Total 1.3 mg/dL (0.3-1.2); Blood Urea Nitrogen 30 mg/dL (9-23); Calcium 9.6 mg/dL (8.3-10.6); Calcium (Corrected) 9.6 mg/dL (8.5-10.1); Carbon Dioxide 20.0 mMol/L (20.0-31.0); Chloride 96 mMol/L (98-107); Creatinine (Component) 1.9 mg/dL (0.6-1.3); Estimated Creatinine Clearance 54.5 mL/min (>60); Globulin 4.1 gm/dL (2.3-3.5); Lipase 42 U/L (12-53); Magnesium 1.9 mg/dL (1.6-2.6); Osmolality,Calculated 291 (275-295); Potassium 5.5 mMol/L (3.4-5.1); Sodium 132 mMol/L (136-145); Total Protein 8.4 gm/dL (5.7-8.2); Troponin I 0.028 ng/mL (0.0-0.045); eGFR 41 See Note
[2025-07-06 13:05] LABS: Glucose 470 mg/dL (74-106)
[2025-07-06] MEDS: INSULIN HUM REGULAR 1 UNIT/0.01 ML (PER UNIT) 5 UNIT IV ×2 (13:20→18:09)
[2025-07-06 13:32] LABS: B-Type Natriuretic Peptide 255 pg/mL (0-100)
--- NOTE | 2025-07-06 13:51 | PC.NURSE ---
Interogated ICD/Pacer to right upper chest, Called [facility] to send report to our facility, spoke with Fred
--- NOTE | 2025-07-06 13:51 | PC.NURSE ---
Patient provided with water ok per Dr. Johnson
[2025-07-06 14:02] LABS: Glucose Estimated Average 269 mg/dL (80-131); Hemoglobin A1C 11.0 % Hgb (4.8-6.0)
[2025-07-06 15:06] LABS: Collection Type, Urine Catheter; Squamous Epithelial Cell,Urine 0 /hpf (0-5)
[2025-07-06 15:16] LABS: Amphetamine/Methamp Scrn,U Negative (Negative); Barbiturate Screen,Urine Negative (Negative); Benzodiazepines Screen,Urine Negative (Negative); Benzoylecgonine Screen, Ur Negative (Negative); Fentanyl Screen,Urine Negative (Negative); Opiate Screen,Urine Positive (Negative); THC Screen,Urine Negative (Negative)
[2025-07-06 15:19] LABS: Bilirubin,Urine Negative (Negative); Blood,Urine 1+ (Negative); Clarity,Urine Clear (Clear/Hazy); Color,Urine Yellow (Lt Yel-Yel); Culture Indicated,Urine Not Indicated; Glucose, Urine 4+ (Negative); Granular Casts,Urine < 1 /hpf (0-1); Hyaline Casts,Urine < 1 /hpf (0-1); Ketones,Urine Negative (Negative); Leukocyte Esterase,Urine Negative (Negative); Nitrite,Urine Negative (Negative); PH,Urine 6.0 (5.0-7.0); Protein,Urine 2+ (Neg - Trace); RBC,Urine 5 /hpf (0-3); Specific Gravity,Urine 1.017 (1.001-1.035); Urobilinogen,Urine Negative mg/dL (0.0-1.0); WBC,Urine < 1 /hpf (0-5)
[2025-07-06 15:31] VITALS: BP 120/87; PULSE 85; RESP 18; TEMP 37.3; O2SAT 97
[2025-07-06] MEDS: PIPER/TAZO 3.375 GM PREMIX 3.375 GM/50 ML BAG IV (15:45)
--- NOTE | 2025-07-06 15:59 | PC.NURSE ---
Called [facility] once again, spoke with Dominick informed her that i called [facility] for interogation report and have not received it, per Dominick she will once again page the local patient support representative and have them send report or call me back in the ER.
[2025-07-06] MEDS: VANCOMYCIN/NS 1 GM IVPB 200 ML IV (16:25)
[2025-07-06 17:39] LABS: Procalcitonin 0.32 ng/ml (0.0-0.49)
[2025-07-06 18:06] LABS: Base Excess, Venous 1 (-3-3); Lactate (Lactic Acid) 2.3 mMol/L (0.4-2.0); O2 Saturation, Venous 65 % (96-97); PCO2, Venous 39 mmHg (36-56); PO2, Venous 32 mmHg (15-58); pH, Venous 7.42 (7.33-7.66)
[2025-07-06 18:09] LABS: Beta Hydroxybutyrate 0.1 mmol/L (<0.6)
[2025-07-06] MEDS: RINGERS LACTATED 1000 ML 1,000 ML 999 ML IV (18:09)
[2025-07-06] MEDS: INSULIN LISPRO (AdmeLOG) 1 UNIT/0.01 ML UNIT 10 UNIT SC (18:12)
[2025-07-06] MEDS: DOCUSATE SOD 100 MG CAPSULE PO (18:34)
[2025-07-06] MEDS: ENOXAPARIN SOD INJ 40 MG/0.4 ML SYRINGE SC (18:34)
[2025-07-06] MEDS: INSULIN DEGLUDEC 5 UNIT/0.05 ML (PER 5 UNITS) SC (18:34)
--- NOTE | 2025-07-06 19:21 | ESHP_ITS ---
Documentation for date of: 07/06/25 --------- Senior Resident Attestation: I have discussed the case with supervising physician and undergraduate internship physician involved in the care of patient. I personally saw and examined patient and discussed the assessment and plan with the entire medical team, including attending. I agree with assessment and plan as documented above. - The patient's plan was discussed with attending Dr. Cytnhia Syed MD PGY2 Internal Medicine HPI History of Present Illness Chief complaint: defibrillator discharge and diabetic foot History of present illness: Bryant Larkin is a 59 yo male patient with significant past medical history of A- fib with RVR, HFrEF 35 to 40% s/p ICD placement, cardiac arrest, coronary artery disease post CABG, type 2 diabetes mellitus, CKD, BPH, hypertension presented to emergency department for defibrillator firing at 4AM and painful foot ulcer on plantar surface of foot for 7 days. ED Course: In the ED, complains of a mild soreness sensation to his chest. Additionally complains of right lower extremity pain. States the pain began months ago though feels it was exacerbated today. States he is dealing with an infection to the right great toe that initially was being treated at the [facility]. However, states his PCP, Dr. Bergman, referred him to a new water main inspector weeks ago which he has yet to see. states they have been cleaning the wound at home and noticed the redness worsening days back which he took old antibiotics for, penicillin. Given Insulin 5U, Zosyn 3.375 gm x1 and Vanc 125mL/hr x1. Admitted into Tele for defibrillator interrogation and diabetic foot. Past Medical History Past Medical History CARDIAC: Positive Myocardial Infarction, Coronary Artery Disease and Peripheral Vascular Disease GENITOURINARY: Positive Chronic Kidney Disease ENDOCRINE: Positive Diabetes Mellitus Type 2 Surgical History SURGICAL: Positive Coronary Artery Bypass Graft, Pacemaker and Auto Implanted Cardiovert Defib Exam Vital Signs Temp Pulse Resp BP Pulse Ox O2 Del Method 99.2 F 85 18 120/87 H 97 Room Air 07/06/25 15:31 07/06/25 15:31 07/06/25 15:31 07/06/25 15:31 07/06/25 15:31 07/06/25 15:31 Narrative Exam General: No acute distress, well nourished Eye: PERRL, EOMI, normal conjunctiva, no scleral icterus HENT: Normocephalic, atraumatic, normal hearing, pink and moist mucous membranes, no oral lesions in mouth, throat shows no erythema Neck: Supple, non-tender, no JVD, no lymphadenopathy Lungs: Clear to auscultation bilaterally, non-labored respirations, symmetric chest rise, no use of accessory muscles Heart: Defibrillator noted on right-side of chest. Normal S1 and S2, no S3 or S4 appreciated. Normal rate and regular rhythm, no murmurs, rubs gallops, or edema. Peripheral pulses DP 2+ popliteal pulse 2+, capillary refill brisk distally Abdomen: Soft, non-tender, non-distended, normal bowel sounds. No guarding or rebound tenderness. Musculoskeletal: Normal range of motion and strength. Skin: Skin is warm, dry, no rashes or lesions. Skin along medial distal tibia and ankle erythematous and TTP. Foot: Necrotic base at metatarsal head of first metatarsal, loculation and fluid-filled lesion surrounding necrotic tissue, and area shows erythema, TTP, and warmth. DP 2+ b/l. Neurologic: Alert, awake and oriented x3. CN II-XII grossly intact. No focal neuro deficits. No signs of meningeal irritation noted. Psychiatric: Cooperative, appropriate mood and affect Results: Labs 07/10/25 05:27 07/10/25 05:27 Labs: Short CBC 07/06/25 Range/Units 12:18 WBC 13.0 H (3.8-10.6) Thou/mm3 Hgb 13.6 (13.5-16.0) g/dL Hct 38.7 L (41.0-53.0) % Plt Count 282 D (140-440) Thou/mm3 BMP 07/06/25 12:18 Sodium 132 L Potassium 5.5 H Chloride 96 L Carbon Dioxide 20.0 BUN 30 H Creatinine 1.9 H Glucose 470 H* Calcium 9.6 Cardiac Enzymes 07/06/25 Range/Units 12:18 Troponin I 0.028 (0.0-0.045) ng/mL Liver Function 07/06/25 Range/Units 12:18 Total Bilirubin 1.3 H (0.3-1.2) mg/dL AST 33 (0-34) U/L ALT 18 (10-49) U/L Alkaline Phosphatase 116 (46-116) U/L Albumin 4.3 (3.5-5.0) gm/dL Urine 07/06/25 Range/Units 14:50 Urine Color Yellow (Lt Yel-Yel) Urine Clarity Clear (Clear/Hazy) Urine pH 6.0 (5.0-7.0) Ur Specific [place] 1.017 (1.001-1.035) Urine Protein 2+ A (Neg - Trace) Urine Glucose (UA) 4+ A (Negative) ABG Interpretation ABG results: 07/06/25 17:44 VBG pH 7.42 VBG pCO2 39 VBG pO2 32 VBG Base Excess 1 Quality Measures Quality Measures none Medications Home Medications and Allergies Home Medications ?Medication ?Instructions ?Recorded ?Confirmed ?Type apixaban 5 mg tablet (Eliquis) 5 mg PO QDAY 09/19/23 1 History metoprolol succinate 200 mg 200 mg PO .QD 07/07/25 History tablet,extended release 24 hr sacubitril 24 mg-valsartan 26 mg 1 tab PO BID 07/07/25 07/07/25 History tablet semaglutide 1 mg/dose (4 mg/3 mL) 1 mg subcut .WEEKLY 07/07/25 07/07/25 History subcutaneous pen injector (Ozempic) methocarbamol 500 mg tablet 500 mg PO Q8H PRN muscle s pasm 07/10/25 07/10/25 History Allergies Allergy/AdvReac Type Severity Reaction Status Date / Time clonidine Allergy Severe SWELLING Verified 07/06/25 12:06 nut - unspecified Allergy Severe Swelling Verified 07/06/25 12:06 Visit Medications Acetaminophen (Acetaminophen 325 Mg Tablet) 650 mg PO Q6H PRN PRN Reason: Fever >100.4 and mild pain 1-3 Stop: 08/05/25 18:12 Hydrocodone Bitart/Acetaminophen (Hydrocodone/Apap 5/325 Tablet) 1 tab PO Q4HR PRN PRN Reason: PAIN SCALE 4-10(Mod-Sev Stop: 07/11/25 18:12 Albuterol/Ipratropium (Albuterol/Ipratropium (Duoneb) Rt [place] 3 Ml Nebu) 3 ml INH Q2HR PRN PRN Reason: SHORTNESS OF BREATH OR WHEEZE Stop: 08/05/25 18:06 Dextrose (Dextrose 50%-Water Inj 50 Ml Syringe) 50 ml IV Q15MIN PRN PRN Reason: BG <50 OR BG <70 & pt unresponsive Stop: 08/05/25 18:10 Docusate Sodium (Docusate Sod 100 Mg Capsule) 100 mg PO QDAY SUSY; Protocol Stop: 08/05/25 18:14 Last Admin: 07/06/25 18:34 Dose: 100 mg Enoxaparin Sodium (Enoxaparin Sod Inj 40 Mg/0.4 Ml Syringe) 40 mg SC QDAY SUSY Stop: 07/20/25 18:29 Last Admin: 07/06/25 18:34 Dose: 40 mg Famotidine (Famotidine 20 Mg Tablet) 20 mg PO BID SUSY Stop: 08/05/25 20:59 Glucagon (Glucagon Inj 1 Mg Vial) 1 mg IM Q15MIN PRN PRN Reason: BG <70, and no IV access Piperacillin Sod/Tazobactam (Sod 3.375 gm/ Sodium Chloride) 50 mls @ 12.5 mls/hr IV Q8HR SUSY; Protocol Stop: 07/13/25 21:59 Vancomycin HCl 2,000 mg/ (Sodium Chloride) 500 mls @ 150 mls/hr IV X1 ONE Stop: 07/06/25 22:19 Insulin Human Lispro (Insulin Lispro (Admelog) 1 Unit/0.01 Ml Unit) 0 unit SC ACHS [facility]; Protocol Stop: 08/05/25 20:59 Ondansetron HCl (Ondansetron Inj 2 Mg/Ml Inj 2 Ml) 4 mg IVP Q6H PRN; Protocol PRN Reason: NAUSEA OR VOMITING Stop: 08/05/25 18:12 Pharmacy Consult (Vancomycin Pharmacy To Dose 1 Each Each) 1 each IV QDAY SUSY Stop: 08/06/25 08:59 Pharmacy Consult (Pharmacy Renal Dose Adjustment 1 Ea) 1 each XX PRN PRN PRN Reason: CONSULT Stop: 08/05/25 18:06 Discontinued Medications Vancomycin/Sodium Chloride (Vancomycin/Ns 1 Gm Ivpb) 200 mls @ 120 mls/hr IV X1 ONE Stop: 07/06/25 15:49 Last Infusion: 07/06/25 18:30 Dose: Infused Piperacillin/Tazobactam/Dextrose (Zosyn) 3.375 gm in 50 mls @ 100 mls/hr IV X1 ONE; Protocol Stop: 07/06/25 14:39 Last Infusion: 07/06/25 16:25 Dose: Infused Lactated Ringer's (Lactated Ringers) 1,000 mls @ 999 mls/hr IV .Q1H1M ONE Stop: 07/06/25 18:19 Last Admin: 07/06/25 18:09 Dose: 999 mls/hr Ceftriaxone Sodium 2 gm/ (Sodium Chloride) 50 mls @ 100 mls/hr IV QDAY SUSY Stop: 07/14/25 08:59 Insulin Degludec (Insulin Degludec 5 Unit/0.05 Ml (Per 5 Units)) 5 unit SC X1 ONE Stop: 07/06/25 18:13 Last Admin: 07/06/25 18:34 Dose: 5 unit Insulin Human Lispro (Insulin Lispro (Admelog) 1 Unit/0.01 Ml Unit) 10 unit SC X1 ONE Stop: 07/06/25 17:20 Last Admin: 07/06/25 18:12 Dose: 10 unit Insulin Human Regular (Insulin Hum Regular 1 Unit/0.01 Ml (Per Unit)) 5 unit IV X1 ONE Stop: 07/06/25 13:08 Last Admin: 07/06/25 18:09 Dose: 5 unit Assessment & Plan Plan Bryant Larkin is a 59 yo male patient with significant past medical history of A- fib with RVR, HFrEF 35 to 40% s/p ICD placement, cardiac arrest, coronary artery disease post CABG, type 2 diabetes mellitus, CKD, BPH, hypertension presented to emergency department for defibrillator firing at 4AM and painful foot ulcer on plantar surface of foot for 7 days. #Defibrillator, shocked 07/06 #HFrHF #A-fib #History of A-fib w RVR #CAD s/p CABG Patient says defibrillator fired 4AM and a few times prior to today. History of infection of defibrillator when placed on left-side of chest. 09/19/23 Echo: LV mild systolic dysfunction. Mild LVH. Dyskinetic septal wall. E stimated EF 40-45% EKG shows abnormal rhythm, compared to previous EKG no changes Trops negative, BNP 255 Keep K > 4, Mg > 2 - cards consulted, appreciate recs - confirm dilt and digi for a-fib according to patient's partner - holding digi given renal funx - holding dilt until cards med recs - hold xarelto, given lovenox 40 - per CAD: started on aspirin, clopidogrel and gemfibrozil #Diabetic Foot c/f osteomyelitis #Soft Tissue infection #DMT2 uncontrolled Ddx: Charcot's foot vs STI B, 335 POC in ED Hbg A1c: 11.0 WBC 13.0, Lactic Acid 2.3 - ISS with hypoglycemic protocol - gen surg consulted, appreciate recs - holding MRI until gen surg suggests to order - started Vanc pharm to dose daily and Zosyn 3.375 gm IV q12hrs #CKD BUN 30, Cr 1.9 Near baseline Cr 1.7 Na 132, K 5.5 Corrected Na 141 ([place]) - CTM renal panel q daily - Mg and Phos x1 AM #BPH -start tamsulosin #HTN - CTM clinically - restart home meds when med recon confirmed Checklist: Admit: Tele Diet: Low carb PUD PPX: Famotidine VTE PPX: Lovenox 40 Bowel Reg: Doc-Senna Electrolytes: Replete prn Case was discussed with Attending Dr. Marie, and Senior Resident Dr.Zaragoza Palak Hale, DO PGY-1 Attending Provider Attestation/Addendum I have examined the patient, reviewed labs and imaging findings, discussed the case with the resident(s), and reviewed entered orders. I agree with the plan of care as outlined in this note, with these additional summaries/recommendations: After examination of the patient and review of the clinical data, I feel that this patient needs admission to the hospital for further treatment and evaluation. Patient is a 59-year-old male with a medical history of chronic atrial fibrillation, HFrEF, ICD placement, history of cardiac arrest, coronary artery disease status post CABG, diabetes mellitus type 2, CKD, BPH, and primary hypertension presents to [facility] emergency department on 07/06/2025 with chief complaint of defibrillator shock. Patient also found to be in atrial fibrillation with RVR. Patient was started on rate controlled medicine. Continue home anticoagulation. Consult cardiology. Patient was found to have osteomyelitis of the foot. Start IV antibiotics. Follow-up culture results. Consult infectious disease, recommendations appreciated. Start insulin sliding scale for diabetes mellitus type 2 and target blood sugar of 140-180 while hospitalized. Resume home antihypertensives. Patient updated on the plan and agreement. All questions answered to satisfaction. Please see residents note for additional details and management. Dr. Cynthia MD
[2025-07-06 20:20] VITALS: BP 113/87; PULSE 91; RESP 97; TEMP 37.5
--- NOTE | 2025-07-06 20:44 | ESCONSULT_ITS ---
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 Patient apparently was on amiodarone was taken out because of slightly low thyroid problems and TSH elevation but patient will be treated with amiodarone IV followed by oral to prevent recurrent appropriate shocks. Elevated the patient with resident physician PGY [address] Sanford RUDOLPH agree with the treatment plan recommendation as documented we will continue to monitor the patient closely. HPI Data of Consult Requesting Physician: Mike Marie MD Admitting Provider: Mike Marie MD Attending Provider: Mike Marie MD Primary Care Provider: Rancho Bergman MD Consult Narrative History of present illness: Bryant Larkin is a 59-year-old male with past medical history of multiple episodes of cardiac arrest status post AICD placement and replacement, CAD status post CABG (2019), paroxysmal A-fib, HFmrEF (EF 40 to 45% in 2023), type 2 diabetes mellitus complicated by osteomyelitis, hypertension, CKD, and drug abuse who presents after he felt his defibrillator fired off this morning while he was sleeping. States that he has been in his usual state of health otherwise but also notes that his defibrillator also fired approximately one week ago after a medication change by his shoveler, Dr. Hendrickson, and earlier this year in November. He denies any chest tightness/pressure, shortness of breath, or palpitations but has some soreness on his right chest wall. He has a complicated cardiac history, including multiple episodes of cardiac arrest, the first of which is recorded back in 2018 but defibrillator was not placed due to acute myocardial infarction and found to have multivessel disease requiring CABG that was done in 2019. Presented again in 2020 for cardiac arrest and that is when firsts AICD was placed but removed due to pocket infection in 2022 and again has since had another placed in 2023 that he believes is made by [employer]. In the ED, vital signs were stable. Evaluation of monitor and EKG reveal paced rhythm with underlying atrial fibrillation. WBC 13, K 5.5, Mg 1.9, Cr 1.9, troponins negative, BNP 255, glucose 470, lactate 2.3. Toxicology positive for opiates. CXR shows vascular congestion. XR right foot shows osteomyelitis. Cardiology consulted for firing of defibrillator and interrogation of device. cc:: cc: Mike Marie MD Review of Systems Review of Systems Systems Reviewed: All systems reviewed, normal except as documented Exam Vital Signs Temp Pulse Resp BP Pulse Ox O2 Del Method 99.5 F 91 97 H 113/87 H 97 Room Air 07/06/25 20:20 07/06/25 20:20 07/06/25 20:20 07/06/25 20:20 07/06/25 15:31 07/06/25 15:31 Narrative Exam General: AOx3, no acute distress, able to speak full sentences HEENT: NC/AT, mucous membranes moist, bilateral sclera anicteric Cardiovascular: device on right chest wall, irregular rhythm, S1/S2 present, no murmurs appreciated Pulmonary: clear to auscultation bilaterally, no rales/rhonchi/wheezes Abdominal: soft, non-tender, non-distended, no rebound/guarding, normal bowel sounds present Musculoskeletal: normal ROM, no peripheral edema Skin: warm and dry, intact, no rashes Neuro: CN II-XII intact, no focal deficits Results Labs 07/06/25 12:18 07/06/25 12:18 Labs: Short CBC 07/06/25 Range/Units 12:18 WBC 13.0 H (3.8-10.6) Thou/mm3 Hgb 13.6 (13.5-16.0) g/dL Hct 38.7 L (41.0-53.0) % Plt Count 282 D (140-440) Thou/mm3 BMP 07/06/25 12:18 Sodium 132 L Potassium 5.5 H Chloride 96 L Carbon Dioxide 20.0 BUN 30 H Creatinine 1.9 H Glucose 470 H* Calcium 9.6 Cardiac Enzymes 07/06/25 Range/Units 12:18 Troponin I 0.028 (0.0-0.045) ng/mL Liver Function 07/06/25 Range/Units 12:18 Total Bilirubin 1.3 H (0.3-1.2) mg/dL AST 33 (0-34) U/L ALT 18 (10-49) U/L Alkaline Phosphatase 116 (46-116) U/L Albumin 4.3 (3.5-5.0) gm/dL Urine 07/06/25 Range/Units 14:50 Urine Color Yellow (Lt Yel-Yel) Urine Clarity Clear (Clear/Hazy) Urine pH 6.0 (5.0-7.0) Ur Specific [place] 1.017 (1.001-1.035) Urine Protein 2+ A (Neg - Trace) Urine Glucose (UA) 4+ A (Negative) ABG Interpretation ABG results: 07/06/25 17:44 VBG pH 7.42 VBG pCO2 39 VBG pO2 32 VBG Base Excess 1 Quality Measures Quality Measures none Medications Home Medications and Allergies Home Medications ?Medication ?Instructions ?Recorded ?Confirmed ?Type linagliptin 5 mg tablet (Tradjenta) 5 mg PO QDAY 10/1907/04/23 History clopidogrel 75 mg tablet 75 mg PO QDAY 07/04/2309/19 History gabapentin 300 mg capsule 300 mg PO TID 07/04/2309/19 History gemfibrozil 600 mg tablet 600 mg PO BID 07/04/2309/19 History hydralazine 25 mg tablet 25 mg PO TID 07/04/23 History isosorbide dinitrate 5 mg tablet 5 mg PO BID 07/04/23 09/19/23 History tamsulosin 0.4 mg capsule 0.4 mg PO QDAY 07/04/2312/08 History apixaban 5 mg tablet (Eliquis) 5 mg PO BID 09/19/23 History Allergies Allergy/AdvReac Type Severity Reaction Status Date / Time clonidine Allergy Severe SWELLING Verified 07/06/25 12:06 nut - unspecified Allergy Severe Swelling Verified 07/06/25 12:06 Visit Medications Acetaminophen (Acetaminophen 325 Mg Tablet) 650 mg PO Q6H PRN PRN Reason: Fever >100.4 and mild pain 1-3 Stop: 08/05/25 18:12 Hydrocodone Bitart/Acetaminophen (Hydrocodone/Apap 5/325 Tablet) 1 tab PO Q4HR PRN PRN Reason: PAIN SCALE 4-10(Mod-Sev Stop: 07/11/25 18:12 Albuterol/Ipratropium (Albuterol/Ipratropium (Duoneb) Rt [place] 3 Ml Nebu) 3 ml INH Q2HR PRN PRN Reason: SHORTNESS OF BREATH OR WHEEZE Stop: 08/05/25 18:06 Dextrose (Dextrose 50%-Water Inj 50 Ml Syringe) 50 ml IV Q15MIN PRN PRN Reason: BG <50 OR BG <70 & pt unresponsive Stop: 08/05/25 18:10 Docusate Sodium (Docusate Sod 100 Mg Capsule) 100 mg PO QDAY [facility]; Protocol Stop: 08/05/25 18:14 Last Admin: 07/06/25 18:34 Dose: 100 mg Enoxaparin Sodium (Enoxaparin Sod Inj 40 Mg/0.4 Ml Syringe) 40 mg SC QDAY SUSY Stop: 07/20/25 18:29 Last Admin: 07/06/25 18:34 Dose: 40 mg Famotidine (Famotidine 20 Mg Tablet) 20 mg PO BID SUSY Stop: 08/05/25 20:59 Glucagon (Glucagon Inj 1 Mg Vial) 1 mg IM Q15MIN PRN PRN Reason: BG <70, and no IV access Piperacillin Sod/Tazobactam (Sod 3.375 gm/ Sodium Chloride) 50 mls @ 12.5 mls/hr IV Q8HR [facility]; Protocol Stop: 07/13/25 21:59 Vancomycin/Sodium Chloride (Vancomycin/Ns 1 Gm Ivpb) 200 mls @ 120 mls/hr IV X1 ONE Stop: 07/06/25 21:54 Amiodarone HCl/Dextrose (Nexterone Ivpb) 360 mg in 200 mls @ 33.333 mls/hr IV .Q6H ONE Stop: 07/07/25 02:31 Amiodarone HCl/Dextrose (Nexterone Ivpb) 360 mg in 200 mls @ 16.667 mls/hr IV .Q12H SUSY Stop: 07/08/25 02:31 Insulin Human Lispro (Insulin Lispro (Admelog) 1 Unit/0.01 Ml Unit) 0 unit SC ACHS [facility]; Protocol Stop: 08/05/25 20:59 Ondansetron HCl (Ondansetron Inj 2 Mg/Ml Inj 2 Ml) 4 mg IVP Q6H PRN; Protocol PRN Reason: NAUSEA OR VOMITING Stop: 08/05/25 18:12 Pharmacy Consult (Vancomycin Pharmacy To Dose 1 Each Each) 1 each IV QDAY SUSY Stop: 08/06/25 08:59 Pharmacy Consult (Pharmacy Renal Dose Adjustment 1 Ea) 1 each XX PRN PRN PRN Reason: CONSULT Stop: 08/05/25 18:06 Discontinued Medications Vancomycin/Sodium Chloride (Vancomycin/Ns 1 Gm Ivpb) 200 mls @ 120 mls/hr IV X1 ONE Stop: 07/06/25 15:49 Last Infusion: 07/06/25 18:30 Dose: Infused Piperacillin/Tazobactam/Dextrose (Zosyn) 3.375 gm in 50 mls @ 100 mls/hr IV X1 ONE; Protocol Stop: 07/06/25 14:39 Last Infusion: 07/06/25 16:25 Dose: Infused Lactated Ringer's (Lactated Ringers) 1,000 mls @ 999 mls/hr IV .Q1H1M ONE Stop: 07/06/25 18:19 Last Infusion: 07/06/25 20:15 Dose: Infused Ceftriaxone Sodium 2 gm/ (Sodium Chloride) 50 mls @ 100 mls/hr IV QDAY SUSY Stop: 07/14/25 08:59 Amiodarone HCl/Dextrose (Nexterone Ivpb) 150 mg in 100 mls @ 600 mls/hr IV .Q10M ONE Stop: 07/06/25 20:32 Insulin Degludec (Insulin Degludec 5 Unit/0.05 Ml (Per 5 Units)) 5 unit SC X1 ONE Stop: 07/06/25 18:13 Last Admin: 07/06/25 18:34 Dose: 5 unit Insulin Human Lispro (Insulin Lispro (Admelog) 1 Unit/0.01 Ml Unit) 10 unit SC X1 ONE Stop: 07/06/25 17:20 Last Admin: 07/06/25 18:12 Dose: 10 unit Insulin Human Regular (Insulin Hum Regular 1 Unit/0.01 Ml (Per Unit)) 5 unit IV X1 ONE Stop: 07/06/25 13:08 Last Admin: 07/06/25 18:09 Dose: 5 unit Assessment & Plan Plan Bryant Larkin is a 59-year-old male with past medical history of multiple episodes of cardiac arrest status post AICD placement and replacement, CAD status post CABG (2019), paroxysmal A-fib, 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 Did not get evaluated last week but presented in November and interrogation showed VF and appropriate shock and followed up with shoveler afterwards. Suspect that this event may be triggered by osteomyelitis and/or uncontrolled diabetes mellitus. Monitor and EKG showed paced rhythm with underlying atrial fibrillation but other vitals were stable. Although patient has had hypothyroid issues in the past on amiodarone, benefits outweigh risks, and can give levothyroxine should hypothyroidism develop. ? Amiodarone drip given history of HFrEF ? [facility] [place] device interrogation ? Keep Mg > 2, K > 4 #History of CAD status post CABG Appears to be on aspirin and plavix outpatient ? Pending med rec #Paroxysmal atrial fibrillation Appears to be on diltiazem ER 360 mg daily, digoxin 0.125 mg daily, and metoprolol succinate 200 mg daily ? Eliquis 5 mg twice daily ? Amiodarone as above #HFrEF (EF 40-45% in 2023) Appears to be on lasix 40 mg daily, Entresto 24-26 mg twice daily, and metoprolol succinate 200 mg daily ? Pending echo ? Pending med rec #Type 2 diabetes mellitus #Osteomyelitis #Chronic kidney disease #Lactic acidosis ? Continue management per primary team ----- Plan discussed with attending physician Dr. Donovan Rudolph MD PGY-2 Internal Medicine
[2025-07-06 21:01] VITALS: PULSE 91; RESP 18; RESP 94
[2025-07-06 21:03] LABS: Reflex Lactate? Y
[2025-07-06 21:41] LABS: Lactic Acid, 3 HR 2.1 mMol/L (0.4-2.0)
[2025-07-06] MEDS: FAMOTIDINE 20 MG TABLET PO (21:53)
[2025-07-06] MEDS: HYDROcodone/APAP 5/325 TABLET 1 TAB PO (22:14)
[2025-07-06] MEDS: INSULIN LISPRO (AdmeLOG) 1 UNIT/0.01 ML UNIT SC (22:27)
[2025-07-06] MEDS: PIPER/TAZO INJ 3.375 GM in SODIUM CHLORIDE 0.9% (Popper) 50 ML IV (22:29)
--- NOTE | 2025-07-06 22:59 | PC.NURSE ---
I spoke with Dr. Vasquez about the patient refusing the amio order. The order was cancelled.
[2025-07-06 23:39] VITALS: BP 106/77; PULSE 102; RESP 13; TEMP 37.4; O2SAT 95
[2025-07-07] VITALS (11 sets, daily range): BP systolic 109–133; BP diastolic 78–96; PULSE 79–109; RESP 15–98; TEMP 36.2–36.7; O2SAT 96–99; BMI 28.5
[2025-07-07] MEDS: AMIODARONE 150 MG IVPB 150 MG/100 ML BAG 600 MG IV (02:13)
[2025-07-07] MEDS: AMIODARONE 360 MG IVPB 360 MG/200 ML BAG 33.333 MG IV (02:29)
[2025-07-07] MEDS: HYDROcodone/APAP 5/325 TABLET 1 TAB PO ×3 (02:39→22:48)
[2025-07-07] MEDS: PIPER/TAZO INJ 3.375 GM in SODIUM CHLORIDE 0.9% (Popper) 50 ML IV (05:28)
[2025-07-07 06:09] LABS: Basophils # (Auto) 0.1 Thou/mm3 (0.0-0.2); Basophils % (Auto) 1 % (0-2.5); Eosinophils # (Auto) 0.3 Thou/mm3 (0.0-0.5); Eosinophils % (Auto) 3 % (0-10); Hematocrit 31.7 % (41.0-53.0); Hemoglobin 11.2 g/dL (13.5-16.0); Immature Granulocytes Auto 0.04 Thou/mm3 (0.00-0.00); Lymphocytes # (Auto) 1.9 Thou/mm3 (1.0-4.8); Lymphocytes % (Auto) 21 % (10-50); Mean Corpuscular HGB Conc 35.3 g/dl (31.0-37.0); Mean Corpuscular Hemoglobin 31.5 pg (25.0-35.0); Mean Corpuscular Volume 89 fL (80-100); Monocytes # (Auto) 0.8 Thou/mm3 (0.0-0.8); Monocytes % (Auto) 8 % (0-12); Neutrophils # (Auto) 6.2 Thou/mm3 (1.8-7.7); Neutrophils % (Auto) 67 % (37-80); Nucleated Red Blood Cell # 0.00 Thou/mm3 (0.00-0.00); Nucleated Red Blood Cell % 0 /100 WBC (0); Platelet Count 241 Thou/mm3 (140-440); RDW Standard Deviation 43.0 fL (35.1-43.9); Red Blood Count 3.56 Miln/mm3 (4.50-5.90); White Blood Count 9.2 Thou/mm3 (3.8-10.6)
[2025-07-07 06:33] LABS: Anion Gap 13 (7-16); BUN/Creatinine Ratio 19 Ratio (12-20); Bilirubin,Total 1.1 mg/dL (0.3-1.2); Blood Urea Nitrogen 31 mg/dL (9-23); Calcium 9.0 mg/dL (8.3-10.6); Carbon Dioxide 23.8 mMol/L (20.0-31.0); Chloride 97 mMol/L (98-107); Creatinine (Component) 1.6 mg/dL (0.6-1.3); Estimated Creatinine Clearance 64.6 mL/min (>60); Glucose 258 mg/dL (74-106); Magnesium 1.7 mg/dL (1.6-2.6); Osmolality,Calculated 283 (275-295); Phosphorous 3.4 mg/dL (2.4-5.1); Potassium 4.0 mMol/L (3.4-5.1); Sodium 134 mMol/L (136-145); eGFR 50 See Note
[2025-07-07 06:34] LABS: Alanine Aminotransferase 12 U/L (10-49); Albumin, Serum 3.6 gm/dL (3.5-5.0); Albumin/Globulin Ratio 1.1 (1.2-2.2); Alkaline Phosphatase 91 U/L (46-116); Aspartate Amino Transferase 14 U/L (0-34); Calcium (Corrected) 9.3 mg/dL (8.5-10.1); Cardiac Risk Estimate 5.1 RATIO (4.0-6.7); Cholesterol 87 mg/dL (132-200); Globulin 3.4 gm/dL (2.3-3.5); HDL Cholesterol 17 mg/dL (40-60); LDL Cholesterol,Calculated 35 mg/dL (0-130); Total Protein 7.0 gm/dL (5.7-8.2); Triglycerides 174 mg/dL (30-150)
[2025-07-07] MEDS: INSULIN LISPRO (AdmeLOG) 1 UNIT/0.01 ML UNIT SC ×4 (07:43→20:44)
--- NOTE | 2025-07-07 08:11 | ESPR_ITS ---
<Statement entered by Dexter Meneses MD - 07/07/25 16:35> I saw and examined patient personally and supervised PGY 1 resident, Dr. Hale with formulating a management plan. I agree with the documentation with the exceptions as listed below. Bryant Larkin is a 59 yo male patient with significant past medical history of A- fib with RVR, HFrEF 35 to 40% s/p ICD placement, cardiac arrest, coronary artery disease post CABG, type 2 diabetes mellitus, CKD, BPH, hypertension presented to emergency department for defibrillator firing at 4AM and painful foot ulcer on plantar surface of foot for 7 days. Problem list: 1. History of cardiac arrest s/p AICD placement with recurrent discharges 2. Osteomyelitis of right foot secondary to uncontrolled diabetes mellitus 3. Diabetic neuropathy 4. History of CAD s/p CABG 5. Paroxysmal atrial fibrillation 6. CKD 7. BPH For patient's atrial fibrillation he was started on amiodarone infusion by cardiology. Overnight his heart rate was between 90s/100s from telemetry review. His pacemaker will also undergo interrogation as per cardiology. With regards to his right foot osteomyelitis antibiotics were de-escalated to ceftriaxone and doxycycline from Zosyn and vancomycin. We also obtain general surgery and infectious disease consultations. Currently pending recommendations. His blood glucose levels remained elevated in the 2?3 100s overnight. Today his insulin degludec was started at 15 units SC daily mealtime insulin lispro was scheduled at 5 units. Plan of care discussed with Attending Dr. Chaya Meneses MD PGY 2 Disclaimer: This note was dictated by speech recognition. Minor errors in fleet coordinator may be present due to voice recognition software. Documentation for date of: 07/07/25 Subjective Subjective Interval history: Patient was given NC 2L overnight due to apneic events. Patient admits to completing a sleep that determined he has GURJIT. Partner says patient sometimes goes apneic during middle of night, she wakes him up so he remember to breathe. Overnight patient was tachy in 110s and BP slightly hypertensive. Labs are unremarkable (CBC and BMP). A1c 11.0. This AM BG was 258. At bedside talked with patient about being glucose control. Toolroom Attendant following for his defibrillator, general surgeon follwoing for diabetic foot ulcer c/b osteeomyelitis, and IM team treating chronic conditions. Exam Vital Signs Temp Pulse Resp BP Pulse Ox O2 Del Method O2 Flow Rate 97.2 F 101 H 15 109/90 H 99 Nasal Cannula 1 07/07/25 08:00 07/07/25 08:00 07/07/25 08:00 07/07/25 08:00 07/07/25 08:00 07/07/25 08:00 07/07/25 08:00 Narrative Exam General: No acute distress, well nourished Eye: PERRL, EOMI, normal conjunctiva, no scleral icterus HENT: Normocephalic, atraumatic, normal hearing, pink and moist mucous membranes, no oral lesions in mouth, throat shows no erythema Neck: Supple, non-tender, no JVD, no lymphadenopathy Lungs: Clear to auscultation bilaterally, non-labored respirations, symmetric chest rise, no use of accessory muscles Heart: Defibrillator noted on right-side of chest. Normal S1 and S2, no S3 or S4 appreciated. Normal rate and regular rhythm, no murmurs, rubs gallops, or edema. Peripheral pulses DP 2+ popliteal pulse 2+, capillary refill brisk distally Abdomen: Soft, non-tender, non-distended, normal bowel sounds. No guarding or rebound tenderness. Musculoskeletal: Normal range of motion and strength. Skin: Skin is warm, dry, no rashes or lesions. Foot: Right foot has a white bandage. Ankle shows less erythema compared to yesterday. Left foot appears well. DP 2+ b/l. Neurologic: Alert, awake and oriented x3. CN II-XII grossly intact. No focal neuro deficits. No signs of meningeal irritation noted. Psychiatric: Cooperative, appropriate mood and affect Objective Labs 07/07/25 05:29 07/07/25 05:29 Labs: Laboratory Results - last 24 hr 07/06/25 07/06/25 07/06/25 12:18 14:50 17:44 WBC 13.0 H RBC 4.33 L Hgb 13.6 Hct 38.7 L MCV 89 MCH 31.4 MCHC 35.1 RDW Std Deviation 43.8 Plt Count 282 D Neut % (Auto) 74 Lymph % (Auto) 16 Mcintosh % (Auto) 8 Eos % (Auto) 2 Baso % (Auto) 1 Neut # (Auto) 9.7 H Lymph # (Auto) 2.0 Mcintosh # (Auto) 1.0 H Eos # (Auto) 0.2 Baso # (Auto) 0.1 Immature Gran # (Auto) 0.07 H Absolute Nucleated RBC 0.00 Immature Gran % 1 H Nucleated RBC % 0 ESR 84 H PT 12.0 INR 1.1 APTT 36.2 H VBG pH 7.42 VBG pCO2 39 VBG pO2 32 VBG O2 Sat ([place]) 65 L VBG Base Excess 1 Sodium 132 L Potassium 5.5 H Chloride 96 L Carbon Dioxide 20.0 Anion Gap 16 BUN 30 H Creatinine 1.9 H Estim Creat Clear Calc 54.5 L eGFR 41 L BUN/Creatinine Ratio 16 Glucose 470 H* Estimated Ave Glu mg/dL 269 H Hemoglobin A1c 11.0 H Calculated Osmolality 291 Lactic Acid 2.3 H Calcium 9.6 Corrected Calcium 9.6 Phosphorus Magnesium 1.9 Total Bilirubin 1.3 H AST 33 ALT 18 Alkaline Phosphatase 116 Troponin I 0.028 B-Natriuretic Peptide 255 H Total Protein 8.4 H Albumin 4.3 Globulin 4.1 H Albumin/Globulin Ratio 1.0 L Triglycerides Cholesterol LDL Cholesterol, Calc HDL Cholesterol Cholesterol/HDL Ratio Lipase 42 Beta-Hydroxybutyrate/Acetoacetate 0.1 Procalcitonin 0.32 Ur Collection Type Catheter Urine Color Yellow Urine Clarity Clear Urine pH 6.0 Ur Specific [place] 1.017 Urine Protein 2+ A Urine Glucose (UA) 4+ A Urine Ketones Negative Urine Blood 1+ A Urine Nitrite Negative Urine Bilirubin Negative Urine Urobilinogen (Auto) Negative Ur Leukocyte Esterase Negative Urine RBC 5 H Urine WBC < 1 Ur Squamous Epith Cells 0 Urine Bacteria None Hyaline Casts < 1 Granular Casts < 1 Ur Culture Indicated? Not Indicated Urine Opiates Screen Positive A Urine Fentanyl Screen Negative Ur Barbiturates Screen Negative U Amphetamin/Meth Scrn Negative U Benzodiazepines Scrn Negative U Cocaine Metab Screen Negative U Marijuana (THC) Screen Negative 07/06/25 07/07/25 21:32 05:29 WBC 9.2 RBC 3.56 L Hgb 11.2 L D Hct 31.7 L MCV 89 MCH 31.5 MCHC 35.3 RDW Std Deviation 43.0 Plt Count 241 D Neut % (Auto) 67 Lymph % (Auto) 21 Mcintosh % (Auto) 8 Eos % (Auto) 3 Baso % (Auto) 1 Neut # (Auto) 6.2 Lymph # (Auto) 1.9 Mcintosh # (Auto) 0.8 Eos # (Auto) 0.3 Baso # (Auto) 0.1 Immature Gran # (Auto) 0.04 H Absolute Nucleated RBC 0.00 Immature Gran % 0 Nucleated RBC % 0 ESR PT INR APTT VBG pH VBG pCO2 VBG pO2 VBG O2 Sat ([place]) VBG Base Excess Sodium 134 L Potassium 4.0 D Chloride 97 L Carbon Dioxide 23.8 Anion Gap 13 BUN 31 H Creatinine 1.6 H Estim Creat Clear Calc 64.6 eGFR 50 L BUN/Creatinine Ratio 19 [address]ucose [address] Glu mg/dL Hemoglobin A1c Calculated Osmolality 283 Lactic Acid 2.1 H Calcium 9.0 Corrected Calcium 9.3 Phosphorus 3.4 Magnesium 1.7 Total Bilirubin 1.1 AST 14 ALT 12 Alkaline Phosphatase 91 D Troponin I B-Natriuretic Peptide Total Protein 7.0 Albumin 3.6 D Globulin 3.4 Albumin/Globulin Ratio 1.1 L Triglycerides 174 H Cholesterol 87 L LDL Cholesterol, Calc 35 HDL Cholesterol 17 L Cholesterol/HDL Ratio 5.1 Lipase Beta-Hydroxybutyrate/Acetoacetate Procalcitonin Ur Collection Type Urine Color Urine Clarity Urine pH Ur Specific [place] Urine Protein Urine Glucose (UA) Urine Ketones Urine Blood Urine Nitrite Urine Bilirubin Urine Urobilinogen (Auto) Ur Leukocyte Esterase Urine RBC Urine WBC Ur Squamous Epith Cells Urine Bacteria Hyaline Casts Granular Casts Ur Culture Indicated? Urine Opiates Screen Urine Fentanyl Screen Ur Barbiturates Screen U Amphetamin/Meth Scrn U Benzodiazepines Scrn U Cocaine Metab Screen U Marijuana (THC) Screen ABG Interpretation ABG results: 07/06/25 17:44 VBG pH 7.42 VBG pCO2 39 VBG pO2 32 VBG Base Excess 1 Quality Measures Quality Measures none Assessment & Plan Assessment Current Active Medications: Generic Name Dose Route Start Last Admin Trade Name Freq PRN Reason Stop Dose Admin Acetaminophen 650 mg 07/06/25 18:13 Acetaminophen 325 Mg Tablet PO 08/05/25 18:12 Q6H PRN Fever >100.4 and mild pain 1-3 Hydrocodone Bitart/Acetaminophen 1 tab 07/06/25 18:13 07/07/25 02:39 Hydrocodone/Apap 5/325 Tablet PO 07/11/25 18:12 1 tab Q4HR PRN Administration PAIN SCALE 4-10(Mod-Sev Albuterol/Ipratropium 3 ml 07/06/25 18:07 Albuterol/Ipratropium (Duoneb) Rt [place] 3 Ml Nebu INH 08/05/25 18:06 Q2HR PRN SHORTNESS OF BREATH OR WHEEZE Dextrose 50 ml 07/06/25 18:11 Dextrose 50%-Water Inj 50 Ml Syringe IV 08/05/25 18:10 Q15MIN PRN BG <50 OR BG <70 & pt unresponsive Docusate Sodium 100 mg 07/06/25 18:15 07/06/25 18:34 Docusate Sod 100 Mg Capsule PO 08/05/25 18:14 100 mg QDAY SUSY Administration Protocol Enoxaparin Sodium 40 mg 07/06/25 18:30 07/06/25 18:34 Enoxaparin Sod Inj 40 Mg/0.4 Ml Syringe SC 07/20/25 18:29 40 mg QDAY SUSY Administration Famotidine 20 mg 07/06/25 21:00 07/06/25 21:53 Famotidine 20 Mg Tablet PO 08/05/25 20:59 20 mg BID SUSY Administration Glucagon 1 mg 07/06/25 18:11 Glucagon Inj 1 Mg Vial IM Q15MIN PRN BG <70, and no IV access Piperacillin Sod/Tazobactam 50 mls @ 12.5 mls/hr 07/06/25 22:00 07/07/25 05:28 Sod 3.375 gm/ Sodium Chloride IV 07/13/25 21:59 12.5 mls/hr Q8HR SUSY Administration Protocol Amiodarone HCl/Dextrose 360 mg in 200 mls @ 16.667 mls/hr 07/07/25 01:28 Nexterone Ivpb IV 07/08/25 01:27 .Q12H SUSY Vancomycin HCl/Dextrose 250 mls @ 120 mls/hr 07/07/25 10:00 Vancomycin/D5w 1,250 Mg Ivpb IV 07/14/25 09:59 Q24H SUSY Insulin Human Lispro 0 unit 07/06/25 21:00 07/07/25 07:43 Insulin Lispro (Admelog) 1 Unit/0.01 Ml Unit SC 08/05/25 20:59 4 unit ACHS SUSY Administration Protocol Ondansetron HCl 4 mg 07/06/25 18:13 Ondansetron Inj 2 Mg/Ml Inj 2 Ml IVP 08/05/25 18:12 Q6H PRN NAUSEA OR VOMITING Protocol Pharmacy Consult 1 each 07/07/25 09:00 Vancomycin Pharmacy To Dose 1 Each Each IV 08/06/25 08:59 QDAY PRN PROTOCOL Pharmacy Consult 1 each 07/06/25 18:07 Pharmacy Renal Dose Adjustment 1 Ea XX 08/05/25 18:06 PRN PRN CONSULT Plan Bryant Larkin is a 59 yo male patient with significant past medical history of A- fib with RVR, HFrEF 35 to 40% s/p ICD placement, cardiac arrest, coronary artery disease post CABG, type 2 diabetes mellitus, CKD, BPH, hypertension presented to emergency department for defibrillator firing at 4AM and painful foot ulcer on plantar surface of foot for 7 days. #History of cardiac arrest s/p AICD placement with recurrent discharges #HFrHF #History of A-fib w RVR #CAD s/p CABG Patient says defibrillator fired 4AM and a few times prior to today. History of infection of defibrillator when placed on left-side of chest. 09/19/23 Echo: LV mild systolic dysfunction. Mild LVH. Dyskinetic septal wall. E stimated EF 40-45% EKG shows abnormal rhythm, compared to previous EKG no changes Trops negative, BNP 255 Keep K > 4, Mg > 2 - cards following - hold xarelto, given lovenox 40 - per CAD: started on aspirin, clopidogrel and gemfibrozil #Diabetic Foot secondary to osteomyelitis #Soft Tissue infection #DMT2 uncontrolled with hyperglycemia, improving Ddx: Charcot's foot vs STI B, 335 POC in ED Hbg A1c: 11.0 WBC 13.0, Lactic Acid 2.3 - ISS with hypoglycemic protocol - hold ozempic, patient on ISS - Gen Surg Dr. Garcia: * Plan: Patient does not require any surgical intervention other than antibiotic intravenously. Patient will require podiatry's help for debriding callus of the right foot. - MRI not needed Gen Surg recommends outpatient Tx - started Vanc pharm to dose daily and Zosyn 3.375 gm IV q12hrs - F/U OP with podiatry with 3-5 days from discharge #Paroxysmal atrial fibrillation CHADS-VASc score: 4 (Stroke risk was 4.8% per year in >90,000 patients and 6.7% risk of stroke/TIA/systemic embolism) HAS-BLED score: 1 - cards following recommends amio ggt managing Pt - Eliquis 5 mg twice daily - On Lovenox 40 for VTE PPX #CKD BUN 30, Cr 1.9 Near baseline Cr 1.7 Na 132, K 5.5 Corrected Na 141 ([place]) - CTM renal panel q daily - Mg and Phos x1 AM #BPH -start tamsulosin #HTN - CTM clinically - restart home meds when med recon confirmed Checklist: Admit: Tele Diet: Low carb PUD PPX: Famotidine VTE PPX: Lovenox 40 Bowel Reg: Doc-Senna Electrolytes: Replete prn Case was discussed with Attending Dr. Larkin, and Senior Resident Dr. Zaira Hale DO PGY-1 Attending Provider Attestation/Addendum I have discussed and was present for the essential components of the history, physical examination, diagnosis, and treatment plan with the resident. I agree with the patient's care as documented by the resident and amended herein by me. Elliot Larkin DO. Although this document has been carefully reviewed, there may still be some phonetic and other typographical errors. These errors are purely grammatical due to imperfections in the software program and should not be construed in any way to compromise the substance of the patient's medical care during this visit. Patient seen and evaluated this AM. No acute events overnight, vital signs stable, patient afebrile. Labs largely unremarkable however he did have a dip in his hemoglobin, 11.2 today, will continue to monitor may be due to fluid administration. CMP significant for sodium 134, chloride 97, BUN 31 and creatinine 1.6 which appears to be his baseline. General surgery was consulted for his right foot diabetic foot ulcer and associated osteomyelitis however no surgery is indicated at this time. We did consult infectious disease for further antibiotic recommendations. Cardiology also consulted for further recommendations in regards to ICD discharge. Will continue to monitor closely while he is here.
[2025-07-07] MEDS: FAMOTIDINE 20 MG TABLET PO ×2 (08:36→20:43)
[2025-07-07] MEDS: DOCUSATE SOD 100 MG CAPSULE PO (08:36)
[2025-07-07] MEDS: ENOXAPARIN SOD INJ 40 MG/0.4 ML SYRINGE SC (08:36)
[2025-07-07] MEDS: AMIODARONE 360 MG IVPB 360 MG/200 ML BAG 16.667 MG IV (08:38)
[2025-07-07] MEDS: INSULIN DEGLUDEC 5 UNIT/0.05 ML (PER 5 UNITS) 15 UNIT SC (08:43)
--- NOTE | 2025-07-07 10:32 | PD.SURCONS ---
HPI Consult details Consult date: 07/07/25 Meds Home Medications and Allergies Home Medications ?Medication ?Instructions ?Recorded ?Confirmed ?Type linagliptin 5 mg tablet (Tradjenta) 5 mg PO QDAY 10/19/20 07/04/23 History clopidogrel 75 mg tablet 75 mg PO QDAY 07/04/23 09/19/23 History gabapentin 300 mg capsule 300 mg PO TID 07/04/23 09/19/23 History gemfibrozil 600 mg tablet 600 mg PO BID 07/04/23 09/19/23 History hydralazine 25 mg tablet 25 mg PO TID 07/04/23 09/19/23 History isosorbide dinitrate 5 mg tablet 5 mg PO BID 07/04/23 09/19/23 History tamsulosin 0.4 mg capsule 0.4 mg PO QDAY 07/04/23 09/19/23 History apixaban 5 mg tablet (Eliquis) 5 mg PO BID 09/19/23 09/19/23 History Allergies Allergy/AdvReac Type Severity Reaction Status Date / Time clonidine Allergy Severe SWELLING Verified 07/06/25 12:06 nut - unspecified Allergy Severe Swelling Verified 07/06/25 12:06 Exam Vital Signs Temp Pulse Resp BP Pulse Ox O2 Del Method O2 Flow Rate 97.2 F 106 H 15 109/90 H 99 Nasal Cannula 1 07/07/25 08:00 07/07/25 08:38 07/07/25 08:00 07/07/25 08:38 07/07/25 08:00 07/07/25 08:00 07/07/25 08:00 Assessment & Plan Additional Assessment Additional comments: Impression: Patient seen for osteomyelitis of the first metatarsal head associated with callus of the right great toe and foot Plan Plan: Patient does not require any surgical intervention other than antibiotic intravenously. Patient will require podiatry's help for debriding callus of the right foot. Thank you
[2025-07-07] MEDS: Magnesium Sulfate 4 GM Ivpb 4 GM/50 ML BAG IV (10:36)
[2025-07-07] MEDS: VANCOMYCIN/D5W 1,250 MG IVPB 250 ML 120 MG IV (10:37)
--- NOTE | 2025-07-07 10:41 | PC.SS ---
Bryant Larkin is a 59 year-old male admitted to [facility] for Diabetic Foot. SS conducted bedside contact with the patient to complete initial assessment and to discuss discharge planning. Role and reason explained. Patient confirmed demographic information. Patient identifies his Araceli Larkin [phone] as his surrogate decision maker. Pt is able to complete most ADLS independently but helps assit with things hes unable or on days he feels weak. Pt has a FWW but interested in a rollator due to foot ulcer and being able to sit down when needed, SS explained we will need PT eval t determine the need for insurance auth. Pts PCP is [facility] (last vist was 3 weeks ago). Pharmacy of choice is [id number]. Discharge options discussed and the pt wishes to return home.? Pt will provide transport. No further intervention required at this time, psychosocial rehabilitation counselor would be available to address any further concerns. DC Plan: Home (open to HH or SNF if needed) Contact: Araceli Address: Confirmed on face sheet PCP: [facility]
[2025-07-07] MEDS: INSULIN LISPRO (AdmeLOG) 1 UNIT/0.01 ML UNIT 5 UNIT SC ×2 (11:32→17:12)
[2025-07-07] MEDS: cefTRIAXone 2 GM in SODIUM CHLORIDE 0.9% (Popper) 50 ML IV (13:07)
--- NOTE | 2025-07-07 14:49 | ESPR_ITS ---
<Statement entered by Kevyn Man MD - 07/10/25 14:33> I personally examined the patient evaluated the patient telemetry floor along with the resident physician Dr. Sanford RUDOLPH PGY2 agree with treatment plan recommendation patient is doing better tolerating IV amiodarone we will change to oral amiodarone 200 mg twice daily will monitor thyroid function closely. Next I reviewed old TSH levels are slightly elevated do not see that being a problem hence patient can safely take amiodarone. Continue rest medications and guideline directed medical management for HFrEF as documented. Documentation for date of: 07/07/25 Subjective Subjective Interval history: No acute overnight events, though patient was reported to be agitated. Seen and examined at bedside and patient doing much better, denying any chest pain or shortness of breath but does state he felt warm. Otherwise, telemetry showing paced rhythm with rate in low 100s and review of device interrogation showed two VF events but occurred prior to hospitalization. He continues to be on amiodarone drip and can transition to oral afterwards. Seen by general surgery and no intervention needed, continuing IV antibiotics. Exam Vital Signs Temp Pulse Resp BP Pulse Ox O2 Del Method O2 Flow Rate 97.6 F 79 18 129/96 H 98 Nasal Cannula 1 07/07/25 12:00 07/07/25 12:00 07/07/25 12:00 07/07/25 12:00 07/07/25 12:00 07/07/25 12:00 07/07/25 12:00 Narrative Exam General: AOx3, no acute distress, able to speak full sentences HEENT: NC/AT, mucous membranes moist, bilateral sclera anicteric Cardiovascular: device on right chest wall, irregular rhythm, S1/S2 present, no murmurs appreciated Pulmonary: clear to auscultation bilaterally, no rales/rhonchi/wheezes Abdominal: RLE bandaged; soft, non-tender, non-distended, no rebound/guarding, normal bowel sounds present Musculoskeletal: normal ROM, no peripheral edema Skin: warm and dry, intact, no rashes Neuro: CN II-XII intact, no focal deficits Objective Labs 07/07/25 05:29 07/07/25 05:29 Labs: Laboratory Results - last 24 hr 07/06/25 07/06/25 07/06/25 12:18 14:50 17:44 WBC RBC Hgb Hct MCV MCH MCHC RDW Std Deviation Plt Count Neut % (Auto) Lymph % (Auto) [place] % (Auto) Eos % (Auto) Baso % (Auto) Neut # (Auto) Lymph # (Auto) [place] # (Auto) Eos # (Auto) Baso # (Auto) Immature Gran # (Auto) Absolute Nucleated RBC Immature Gran % Nucleated RBC % VBG pH 7.42 VBG pCO2 39 VBG pO2 32 VBG O2 Sat ([place]) 65 L VBG Base Excess 1 Sodium Potassium Chloride Carbon Dioxide Anion Gap BUN Creatinine Estim Creat Clear Calc eGFR BUN/Creatinine Ratio Glucose Calculated Osmolality Lactic Acid 2.3 H Calcium Corrected Calcium Phosphorus Magnesium Total Bilirubin AST ALT Alkaline Phosphatase Total Protein Albumin Globulin Albumin/Globulin Ratio Triglycerides Cholesterol LDL Cholesterol, Calc HDL Cholesterol Cholesterol/HDL Ratio Beta-Hydroxybutyrate/Acetoacetate 0.1 Procalcitonin 0.32 Ur Collection Type Catheter Urine Color Yellow Urine Clarity Clear Urine pH 6.0 Ur Specific [place] 1.017 Urine Protein 2+ A Urine Glucose (UA) 4+ A Urine Ketones Negative Urine Blood 1+ A Urine Nitrite Negative Urine Bilirubin Negative Urine Urobilinogen (Auto) Negative Ur Leukocyte Esterase Negative Urine RBC 5 H Urine WBC < 1 Ur Squamous Epith Cells 0 Urine Bacteria None Hyaline Casts < 1 Granular Casts < 1 Ur Culture Indicated? Not Indicated Urine Opiates Screen Positive A Urine Fentanyl Screen Negative Ur Barbiturates Screen Negative U Amphetamin/Meth Scrn Negative U Benzodiazepines Scrn Negative U Cocaine Metab Screen Negative U Marijuana (THC) Screen Negative 07/06/25 07/07/25 21:32 05:29 WBC 9.2 RBC 3.56 L Hgb 11.2 L D Hct 31.7 L MCV 89 MCH 31.5 MCHC 35.3 RDW Std Deviation 43.0 Plt Count 241 D Neut % (Auto) 67 Lymph % (Auto) 21 [place] % (Auto) 8 Eos % (Auto) 3 Baso % (Auto) 1 Neut # (Auto) 6.2 Lymph # (Auto) 1.9 [place] # (Auto) 0.8 Eos # (Auto) 0.3 Baso # (Auto) 0.1 Immature Gran # (Auto) 0.04 H Absolute Nucleated RBC 0.00 Immature Gran % 0 Nucleated RBC % 0 VBG pH VBG pCO2 VBG pO2 VBG O2 Sat ([place]) VBG Base Excess Sodium 134 L Potassium 4.0 D Chloride 97 L Carbon Dioxide 23.8 Anion Gap 13 BUN 31 H Creatinine 1.6 H Estim Creat Clear Calc 64.6 eGFR 50 L BUN/Creatinine Ratio 19 Glucose 258 H D Calculated Osmolality 283 Lactic Acid 2.1 H Calcium 9.0 Corrected Calcium 9.3 Phosphorus 3.4 Magnesium 1.7 Total Bilirubin 1.1 AST 14 ALT 12 Alkaline Phosphatase 91 D Total Protein 7.0 Albumin 3.6 D Globulin 3.4 Albumin/Globulin Ratio 1.1 L Triglycerides 174 H Cholesterol 87 L LDL Cholesterol, Calc 35 HDL Cholesterol 17 L Cholesterol/HDL Ratio 5.1 Beta-Hydroxybutyrate/Acetoacetate Procalcitonin Ur Collection Type Urine Color Urine Clarity Urine pH Ur Specific [place] Urine Protein Urine Glucose (UA) Urine Ketones Urine Blood Urine Nitrite Urine Bilirubin Urine Urobilinogen (Auto) Ur Leukocyte Esterase Urine RBC Urine WBC Ur Squamous Epith Cells Urine Bacteria Hyaline Casts Granular Casts Ur Culture Indicated? Urine Opiates Screen Urine Fentanyl Screen Ur Barbiturates Screen U Amphetamin/Meth Scrn U Benzodiazepines Scrn U Cocaine Metab Screen U Marijuana (THC) Screen ABG Interpretation ABG results: 07/06/25 17:44 VBG pH 7.42 VBG pCO2 39 VBG pO2 32 VBG Base Excess 1 Quality Measures Quality Measures none Assessment & Plan Assessment Current Active Medications: Generic Name Dose Route Start Last Admin Trade Name Freq PRN Reason Stop Dose Admin Acetaminophen 650 mg 07/06/25 18:13 Acetaminophen 325 Mg Tablet PO 08/05/25 18:12 Q6H PRN Fever >100.4 and mild pain 1-3 Hydrocodone Bitart/Acetaminophen 1 tab 07/06/25 18:13 07/07/25 08:43 Hydrocodone/Apap 5/325 Tablet PO 07/11/25 18:12 1 tab Q4HR PRN Administration PAIN SCALE 4-10(Mod-Sev Albuterol/Ipratropium 3 ml 07/06/25 18:07 Albuterol/Ipratropium (Duoneb) Rt [place] 3 Ml Nebu INH 08/05/25 18:06 Q2HR PRN SHORTNESS OF BREATH OR WHEEZE Dextrose 50 ml 07/06/25 18:11 Dextrose 50%-Water Inj 50 Ml Syringe IV 08/05/25 18:10 Q15MIN PRN BG <50 OR BG <70 & pt unresponsive Docusate Sodium 100 mg 07/06/25 18:15 07/07/25 08:36 Docusate Sod 100 Mg Capsule PO 08/05/25 18:14 100 mg QDAY SUSY Administration Protocol Enoxaparin Sodium 40 mg 07/06/25 18:30 07/07/25 08:36 Enoxaparin Sod Inj 40 Mg/0.4 Ml Syringe SC 07/20/25 18:29 40 mg QDAY SUSY Administration Famotidine 20 mg 07/06/25 21:00 07/07/25 08:36 Famotidine 20 Mg Tablet PO 08/05/25 20:59 20 mg BID SUSY Administration Glucagon 1 mg 07/06/25 18:11 Glucagon Inj 1 Mg Vial IM Q15MIN PRN BG <70, and no IV access Amiodarone HCl/Dextrose 360 mg in 200 mls @ 16.667 mls/hr 07/07/25 01:28 07/07/25 08:38 Nexterone Ivpb IV 07/08/25 01:27 16.667 mls/hr .Q12H SUSY Administration Ceftriaxone Sodium 2 gm/ 50 mls @ 100 mls/hr 07/07/25 11:20 07/07/25 13:07 Sodium Chloride IV 07/14/25 11:19 100 mls/hr QDAY SUSY Administration Doxycycline Hyclate 100 mg/ 100 mls @ 100 mls/hr 07/07/25 21:00 Sodium Chloride IV 07/14/25 20:59 BID SUSY Insulin Degludec 15 unit 07/07/25 09:00 07/07/25 08:43 Insulin Degludec 5 Unit/0.05 Ml (Per 5 Units) SC 08/06/25 08:59 15 unit QDAY SUSY Administration Insulin Human Lispro 0 unit 07/06/25 21:00 07/07/25 11:32 Insulin Lispro (Admelog) 1 Unit/0.01 Ml Unit SC 08/05/25 20:59 5 unit ACHS SUSY Administration Protocol Insulin Human Lispro 5 unit 07/07/25 12:00 07/07/25 11:32 Insulin Lispro (Admelog) 1 Unit/0.01 Ml Unit SC 08/06/25 11:59 5 unit TIDWM SUSY Administration Ondansetron HCl 4 mg 07/06/25 18:13 Ondansetron Inj 2 Mg/Ml Inj 2 Ml IVP 08/05/25 18:12 Q6H PRN NAUSEA OR VOMITING Protocol Pharmacy Consult 1 each 07/06/25 18:07 Pharmacy Renal Dose Adjustment 1 Ea XX 08/05/25 18:06 PRN PRN CONSULT Plan Bryant Larkin is a 59-year-old male with past medical history of multiple episodes of cardiac arrest status post AICD placement and replacement, CAD status post CABG (2019), paroxysmal A-fib, 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 Did not get evaluated last week but presented in November and interrogation showed VF and appropriate shock and followed up with weatherization crew leader afterwards. Suspect that this event may be triggered by osteomyelitis and/or uncontrolled diabetes mellitus. Monitor and EKG showed paced rhythm with underlying atrial fibrillation but other vitals were stable. Although patient has had hypothyroid issues in the past on amiodarone, benefits outweigh risks, and can give levothyroxine should hypothyroidism develop. Device interrogation revealed two episodes of VF that required intervention but prior to hospitalization and suspect that shock upon presentation may have been misfire due to afib. ? After amiodarone drip, start 200 mg twice daily (first oral dose 07/07 at 9 PM) ? Follow-up TSH tomorrow morning given history of hypothyroidism on amiodarone ? Keep Mg > 2, K > 4 #History of CAD status post CABG Appears to be on aspirin and plavix outpatient ? Resume home plavix 75 mg daily #Paroxysmal atrial fibrillation Appears to be on diltiazem ER 360 mg daily, digoxin 0.125 mg daily, and metoprolol succinate 200 mg daily ? Eliquis 5 mg twice daily ? Amiodarone as above #HFrEF (EF 40-45% in 2023) Appears to be on lasix 40 mg daily, Entresto 24-26 mg twice daily, and metoprolol succinate 200 mg daily ? Pending echo ? Can continue entresto per primary team discretion; patient appears to have CKD #Type 2 diabetes mellitus #Osteomyelitis #Chronic kidney disease #Lactic acidosis ? Continue management per primary team ----- Plan discussed with attending physician Dr. Donovan Rudolph MD PGY-2 Internal Medicine
--- NOTE | 2025-07-07 15:03 | PC.SS ---
Rounding: Gen SX consult and ID consult pending DC plan Home
--- NOTE | 2025-07-07 20:38 | PC.NURSE ---
CONFIRMED WITH PHARAMACY ABOUT AMIO DRIP NOT FINISHING LAST BAG 1 OF 2 AND WAS DISCONTINUED. PER PHARMACY GIVE AMIODARONE PO since the med was discontinued.
[2025-07-07] MEDS: APIXABAN 2.5 MG TABLET 5 MG PO (20:43)
[2025-07-07] MEDS: DOXYCYCLINE INJ 100 MG in SODIUM CHLORIDE 0.9% (POP) 100 ML IV (20:44)
[2025-07-07] MEDS: AMIODARONE HCL 200 MG TABLET PO (20:44)
[2025-07-08] VITALS (11 sets, daily range): BP systolic 107–139; BP diastolic 83–96; PULSE 76–217; RESP 16–98; TEMP 36.2–36.6; O2SAT 94–98; BMI 28.6
--- NOTE | 2025-07-08 00:19 | PC.NURSE ---
tissue recovery technician notified this RN about patient heart rate in 140's. Upon checking on patient, patient trying to get up. Pt educated on importance to use assistance when getting up to bedside commode due to concern of falling and patient having severe pain foot pain and not being able to ambulate on right leg. Pt stated I can do it myself don't worry about me and if I can't then my can come help me get to the bathroom . Once again educated on fall precautions and that we can offer assistance. Offered patient alternate solution of using bedpan instead but patient is refusing and prefers bedside commode or toilet. This RN stated visiting hours are over and visitors can come in at 6 AM. Pt stated I need my to help me. She knows what to do. If not I'm going to leave since my can't come in . This RN stated that I would ask my charge nurse. Charge nurse made aware of situation.
[2025-07-08] MEDS: Magnesium Sulfate 2 GM Ivpb 2 GM/50 ML BAG IV ×2 (04:42→21:16)
[2025-07-08 05:50] LABS: Basophils # (Auto) 0.1 Thou/mm3 (0.0-0.2); Basophils % (Auto) 1 % (0-2.5); Eosinophils # (Auto) 0.3 Thou/mm3 (0.0-0.5); Eosinophils % (Auto) 3 % (0-10); Hematocrit 33.5 % (41.0-53.0); Hemoglobin 11.5 g/dL (13.5-16.0); Immature Granulocytes Auto 0.04 Thou/mm3 (0.00-0.00); Lymphocytes # (Auto) 2.0 Thou/mm3 (1.0-4.8); Lymphocytes % (Auto) 21 % (10-50); Mean Corpuscular HGB Conc 34.3 g/dl (31.0-37.0); Mean Corpuscular Hemoglobin 31.3 pg (25.0-35.0); Mean Corpuscular Volume 91 fL (80-100); Monocytes # (Auto) 0.8 Thou/mm3 (0.0-0.8); Monocytes % (Auto) 9 % (0-12); Neutrophils # (Auto) 6.3 Thou/mm3 (1.8-7.7); Neutrophils % (Auto) 67 % (37-80); Nucleated Red Blood Cell # 0.00 Thou/mm3 (0.00-0.00); Nucleated Red Blood Cell % 0 /100 WBC (0); Platelet Count 283 Thou/mm3 (140-440); RDW Standard Deviation 44.4 fL (35.1-43.9); Red Blood Count 3.67 Miln/mm3 (4.50-5.90); White Blood Count 9.4 Thou/mm3 (3.8-10.6)
[2025-07-08 06:37] LABS: Alanine Aminotransferase 22 U/L (10-49); Albumin, Serum 3.9 gm/dL (3.5-5.0); Albumin/Globulin Ratio 1.1 (1.2-2.2); Alkaline Phosphatase 113 U/L (46-116); Anion Gap 11 (7-16); Aspartate Amino Transferase 26 U/L (0-34); BUN/Creatinine Ratio 17 Ratio (12-20); Bilirubin,Total 0.8 mg/dL (0.3-1.2); Blood Urea Nitrogen 25 mg/dL (9-23); Calcium 9.0 mg/dL (8.3-10.6); Calcium (Corrected) 9.1 mg/dL (8.5-10.1); Carbon Dioxide 23.8 mMol/L (20.0-31.0); Chloride 99 mMol/L (98-107); Creatinine (Component) 1.5 mg/dL (0.6-1.3); Estimated Creatinine Clearance 69.0 mL/min (>60); Globulin 3.4 gm/dL (2.3-3.5); Glucose 219 mg/dL (74-106); Osmolality,Calculated 279 (275-295); Potassium 4.6 mMol/L (3.4-5.1); Sodium 134 mMol/L (136-145); Thyroid Stimulating Hormone 2.12 uIU/mL (0.55-4.78); Total Protein 7.3 gm/dL (5.7-8.2); eGFR 54 See Note
[2025-07-08] MEDS: INSULIN LISPRO (AdmeLOG) 1 UNIT/0.01 ML UNIT SC ×3 (07:48→17:11)
[2025-07-08] MEDS: INSULIN LISPRO (AdmeLOG) 1 UNIT/0.01 ML UNIT 5 UNIT SC ×3 (07:48→17:11)
[2025-07-08] MEDS: HYDROcodone/APAP 5/325 TABLET 1 TAB PO (07:49)
[2025-07-08] MEDS: cefTRIAXone 2 GM in SODIUM CHLORIDE 0.9% (Popper) 50 ML IV (09:11)
[2025-07-08] MEDS: DOXYCYCLINE INJ 100 MG in SODIUM CHLORIDE 0.9% (POP) 100 ML IV (09:12)
[2025-07-08] MEDS: INSULIN DEGLUDEC 5 UNIT/0.05 ML (PER 5 UNITS) 15 UNIT SC (09:14)
[2025-07-08] MEDS: FAMOTIDINE 20 MG TABLET PO ×2 (09:15→20:29)
[2025-07-08] MEDS: ATORVASTATIN CALCIUM 20 MG TABLET 40 MG PO (09:15)
[2025-07-08] MEDS: DOCUSATE SOD 100 MG CAPSULE PO (09:15)
[2025-07-08] MEDS: CLOPIDOGREL BISULFATE 75 MG TABLET PO (09:16)
[2025-07-08] MEDS: AMIODARONE HCL 200 MG TABLET PO ×2 (09:16→20:28)
[2025-07-08] MEDS: METOPROLOL SUCCINATE XL 25 MG TABCR 200 MG PO (09:16)
[2025-07-08] MEDS: APIXABAN 2.5 MG TABLET 5 MG PO (09:16)
--- NOTE | 2025-07-08 12:01 | PC.SS ---
Update: Patient is pending ID Rec's and is getting IV ABX. Patient will discharge home when medically cleared.
--- NOTE | 2025-07-08 12:21 | ESPR_ITS ---
<Statement entered by Kevyn Man MD - 07/10/25 14:34> I personally examined evaluated this patient with PGY 2 Dr. Sanford RUDOLPH patient is doing quite well not having chest pain shortness of breath tolerating amiodarone well now oral amiodarone has been given for arrhythmia so far no further episodes of VT VF does not complain of any chest pain clinically stable. Continue to monitor the patient closely on telemetry for any arrhythmias Documentation for date of: 07/08/25 Subjective Subjective Interval history: No acute overnight events. Seen and examined at bedside and patient resting comfortably in bed. Denies any shortness of breath, chest discomfort, palpitations but does state he has pain in his right lower extremity. Continues to be treated with IV antibiotics for his osteomyelitis. Regarding his device, he has had multiple episodes requiring intervention since it has been placed with the most recent 2 being on 06/29 and 07/01. However, no evidence of firing occurring on day of admission. Continue amiodarone 200 mg twice daily. Exam Vital Signs Temp Pulse Resp BP Pulse Ox O2 Del Method O2 Flow Rate 97.2 F 88 24 H 126/86 H 96 Room Air 1 07/08/25 12:00 07/08/25 12:00 07/08/25 12:00 07/08/25 12:00 07/08/25 12:00 07/08/25 12:00 07/07/25 12:00 Narrative Exam General: AOx3, no acute distress, able to speak full sentences HEENT: NC/AT, mucous membranes moist, bilateral sclera anicteric Cardiovascular: device on right chest wall, irregular rhythm, S1/S2 present, no murmurs appreciated Pulmonary: clear to auscultation bilaterally, no rales/rhonchi/wheezes Abdominal: RLE bandaged; soft, non-tender, non-distended, no rebound/guarding, normal bowel sounds present Musculoskeletal: normal ROM, no peripheral edema Skin: warm and dry, intact, no rashes Neuro: CN II-XII intact, no focal deficits Objective Labs 07/08/25 05:31 07/08/25 05:31 Labs: Laboratory Results - last 24 hr 07/08/25 05:31 WBC 9.4 RBC 3.67 L Hgb 11.5 L Hct 33.5 L MCV 91 MCH 31.3 MCHC 34.3 RDW Std Deviation 44.4 H Plt Count 283 D Neut % (Auto) 67 Lymph % (Auto) 21 [place] % (Auto) 9 Eos % (Auto) 3 Baso % (Auto) 1 Neut # (Auto) 6.3 Lymph # (Auto) 2.0 [place] # (Auto) 0.8 Eos # (Auto) 0.3 Baso # (Auto) 0.1 Immature Gran # (Auto) 0.04 H Absolute Nucleated RBC 0.00 Immature Gran % 0 Nucleated RBC % 0 Sodium 134 L Potassium 4.6 D Chloride 99 Carbon Dioxide 23.8 Anion Gap 11 BUN 25 H Creatinine 1.5 H Estim Creat Clear Calc 69.0 eGFR 54 L BUN/Creatinine Ratio 17 Glucose 219 H Calculated Osmolality 279 Calcium 9.0 Corrected Calcium 9.1 Total Bilirubin 0.8 AST 26 ALT 22 Alkaline Phosphatase 113 D Total Protein 7.3 Albumin 3.9 Globulin 3.4 Albumin/Globulin Ratio 1.1 L TSH 2.12 ABG Interpretation ABG results: 07/06/25 17:44 VBG pH 7.42 VBG pCO2 39 VBG pO2 32 VBG Base Excess 1 Quality Measures Quality Measures none Assessment & Plan Assessment Current Active Medications: Generic Name Dose Route Start Last Admin Trade Name Freq PRN Reason Stop Dose Admin Acetaminophen 650 mg 07/06/25 18:13 Acetaminophen 325 Mg Tablet PO 08/05/25 18:12 Q6H PRN Fever >100.4 and mild pain 1-3 Hydrocodone Bitart/Acetaminophen 1 tab 07/06/25 18:13 07/08/25 07:49 Hydrocodone/Apap 5/325 Tablet PO 07/11/25 18:12 1 tab Q4HR PRN Administration PAIN SCALE 4-10(Mod-Sev Albuterol/Ipratropium 3 ml 07/06/25 18:07 Albuterol/Ipratropium (Duoneb) Rt [place] 3 Ml Nebu INH 08/05/25 18:06 Q2HR PRN SHORTNESS OF BREATH OR WHEEZE Amiodarone HCl 200 mg 07/07/25 21:00 07/08/25 09:16 Amiodarone Hcl 200 Mg Tablet PO 08/06/25 20:59 200 mg BID SUSY Administration Apixaban 5 mg 07/07/25 21:00 07/08/25 09:16 Apixaban 2.5 Mg Tablet PO 08/06/25 20:59 5 mg BID SUSY Administration Atorvastatin Calcium 40 mg 07/08/25 09:00 07/08/25 09:15 Atorvastatin Calcium 20 Mg Tablet PO 08/07/25 08:59 40 mg QDAY SUSY Administration Protocol Clopidogrel Bisulfate 75 mg 07/08/25 09:00 07/08/25 09:16 Clopidogrel Bisulfate 75 Mg Tablet PO 08/07/25 08:59 75 mg QDAY SUSY Administration Dextrose 50 ml 07/06/25 18:11 Dextrose 50%-Water Inj 50 Ml Syringe IV 08/05/25 18:10 Q15MIN PRN BG <50 OR BG <70 & pt unresponsive Docusate Sodium 100 mg 07/06/25 18:15 07/08/25 09:15 Docusate Sod 100 Mg Capsule PO 08/05/25 18:14 100 mg QDAY SUSY Administration Protocol Famotidine 20 mg 07/06/25 21:00 07/08/25 09:15 Famotidine 20 Mg Tablet PO 08/05/25 20:59 20 mg BID SUSY Administration Glucagon 1 mg 07/06/25 18:11 Glucagon Inj 1 Mg Vial IM Q15MIN PRN BG <70, and no IV access Ceftriaxone Sodium 2 gm/ 50 mls @ 100 mls/hr 07/07/25 11:20 07/08/25 09:11 Sodium Chloride IV 07/14/25 11:19 100 mls/hr QDAY SUSY Administration Doxycycline Hyclate 100 mg/ 100 mls @ 100 mls/hr 07/07/25 21:00 07/08/25 09:12 Sodium Chloride IV 07/14/25 20:59 100 mls/hr BID SUSY Administration Insulin Degludec 15 unit 07/07/25 09:00 07/08/25 09:14 Insulin Degludec 5 Unit/0.05 Ml (Per 5 Units) SC 08/06/25 08:59 15 unit QDAY SUSY Administration Insulin Human Lispro 0 unit 07/06/25 21:00 07/08/25 11:52 Insulin Lispro (Admelog) 1 Unit/0.01 Ml Unit SC 08/05/25 20:59 4 unit ACHS SUSY Administration Protocol Insulin Human Lispro 5 unit 07/07/25 12:00 07/08/25 11:52 Insulin Lispro (Admelog) 1 Unit/0.01 Ml Unit SC 08/06/25 11:59 5 unit TIDWM SUSY Administration Metoprolol Succinate 200 mg 07/08/25 09:00 07/08/25 09:16 Metoprolol Succinate Xl 25 Mg Tabcr PO 08/07/25 08:59 200 mg QDAY SUSY Administration Ondansetron HCl 4 mg 07/06/25 18:13 Ondansetron Inj 2 Mg/Ml Inj 2 Ml IVP 08/05/25 18:12 Q6H PRN NAUSEA OR VOMITING Protocol Pharmacy Consult 1 each 07/06/25 18:07 Pharmacy Renal Dose Adjustment 1 Ea XX 08/05/25 18:06 PRN PRN CONSULT Sacubitril/Valsartan 1 tab 07/07/25 21:00 07/08/25 09:15 Sacubitril 24 Mg/Valsartan 26 Mg Tablet PO 08/06/25 20:59 1 tab BID SUSY Administration Plan Bryant Larkin is a 59-year-old male with past medical history of multiple episodes of cardiac arrest status post AICD placement and replacement, CAD status post CABG (2019), paroxysmal A-fib, 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 Did not get evaluated last week but presented in November and interrogation showed VF and appropriate shock and followed up with extractor operator solvent process afterwards. Suspect that this event may be triggered by osteomyelitis and/or uncontrolled diabetes mellitus. Monitor and EKG showed paced rhythm with underlying atrial fibrillation but other vitals were stable. Although patient has had hypothyroid issues in the past on amiodarone, benefits outweigh risks, and can give levothyroxine should hypothyroidism develop. Device interrogation revealed two episodes of VF that required intervention but prior to hospitalization and suspect that his pain he experienced when he presented may have been from his osteomyelitis as he states he has woken up from pain since being admitted. ? Amiodarone 200 mg twice daily ? TSH within normal limits ? Keep Mg > 2, K > 4 #History of CAD status post CABG Appears to be on aspirin and plavix outpatient ? Resume home aspirin 81 mg daily, no need for plavix #Paroxysmal atrial fibrillation Appears to be on diltiazem ER 360 mg daily, digoxin 0.125 mg daily, and metoprolol succinate 200 mg daily ? Eliquis 5 mg twice daily ? Amiodarone as above #HFrEF (EF 40-45% in 2023) Appears to be on lasix 40 mg daily, Entresto 24-26 mg twice daily, and metoprolol succinate 200 mg daily ? Can continue entresto per primary team discretion; patient appears to have CKD #Type 2 diabetes mellitus #Osteomyelitis #Chronic kidney disease #Lactic acidosis ? Continue management per primary team ----- Plan discussed with attending physician Dr. Donovan Rudolph MD PGY-2 Internal Medicine
--- NOTE | 2025-07-08 13:47 | PD.IDPROG ---
Subjective Subjective Interval history: osteo of foot based on imaging. diabetic a1c 11 07/06/25. only 59 yoa. all cx neg Exam Vital Signs Temp Pulse Resp BP Pulse Ox O2 Del Method O2 Flow Rate 97.2 F 88 24 H 126/86 H 96 Room Air 1 07/08/25 12:00 07/08/25 12:00 07/08/25 12:00 07/08/25 12:00 07/08/25 12:00 07/08/25 12:00 07/07/25 12:00 Objective - Internal Medicine Labs 07/08/25 05:31 07/08/25 05:31 Labs: Laboratory Results - last 24 hr 07/08/25 05:31 WBC 9.4 RBC 3.67 L Hgb 11.5 L Hct 33.5 L MCV 91 MCH 31.3 MCHC 34.3 RDW Std Deviation 44.4 H Plt Count 283 D Neut % (Auto) 67 Lymph % (Auto) 21 [place] % (Auto) 9 Eos % (Auto) 3 Baso % (Auto) 1 Neut # (Auto) 6.3 Lymph # (Auto) 2.0 [place] # (Auto) 0.8 Eos # (Auto) 0.3 Baso # (Auto) 0.1 Immature Gran # (Auto) 0.04 H Absolute Nucleated RBC 0.00 Immature Gran % 0 Nucleated RBC % 0 Sodium 134 L Potassium 4.6 D Chloride 99 Carbon Dioxide 23.8 Anion Gap 11 BUN 25 H Creatinine 1.5 H Estim Creat Clear Calc 69.0 eGFR 54 L BUN/Creatinine Ratio 17 Glucose 219 H Calculated Osmolality 279 Calcium 9.0 Corrected Calcium 9.1 Total Bilirubin 0.8 AST 26 ALT 22 Alkaline Phosphatase 113 D Total Protein 7.3 Albumin 3.9 Globulin 3.4 Albumin/Globulin Ratio 1.1 L TSH 2.12 ABG Interpretation ABG results: 07/06/25 17:44 VBG pH 7.42 VBG pCO2 39 VBG pO2 32 VBG Base Excess 1 Assessment & Plan A&P Narrative osteo of foot by xray report. esr high cad dm II hld htn will check crp to have that on file. esr high suggest empirically give iv rocephin thru 08/18 with po doxy for same duration and weekly cbc, renal panel, esr on rx and remove line at end of rx. will see again prn Time Spent With Patient Time: Total time spent is greater than 50% in coordination of care (as documented) at patient's floor/unit and/or counseling patient:
--- NOTE | 2025-07-08 14:36 | ESPR_ITS ---
<Statement entered by Dexter Meneses MD - 07/08/25 16:09> I saw and examined patient personally and supervised PGY 1 resident, Dr. Hale with formulating a management plan. I agree with the documentation with the exceptions as listed below. Bryant Larkin is a 59 yo male patient with significant past medical history of A- fib with RVR, HFrEF 35 to 40% s/p ICD placement, cardiac arrest, coronary artery disease post CABG, type 2 diabetes mellitus, CKD, BPH, hypertension presented to emergency department for defibrillator firing at 4AM and painful foot ulcer on plantar surface of foot for 7 days. Problem list: 1. History of cardiac arrest s/p AICD placement with recurrent discharges 2. Osteomyelitis of right foot secondary to uncontrolled diabetes mellitus 3. Diabetic neuropathy 4. History of CAD s/p CABG 5. Paroxysmal atrial fibrillation 6. CKD 7. BPH Plan telemetry reviewed patient was in A-fib overnight with heart rate in 120s?130s. He was started on amiodarone 200 mg p.o. twice daily and metoprolol 100 mg daily as per cardiology recommendations. At home he takes digoxin but this was not resumed while in hospital. He also is on Eliquis for anticoagulation. With regards to his osteomyelitis he is currently on ceftriaxone and doxycycline IV. Infectious disease, Dr Barnett recommended a 6-week course of IV ceftriaxone and doxycycline to complete on 08/18. Patient will be placed n.p.o. from midnight and scheduled for PICC line insertion tomorrow. He will need home health ordered for IV antibiotics. Anticipate discharge within next 24 to 48 hours. Plan of care discussed with Attending Dr. Chaya Meneses MD PGY 2 Disclaimer: This note was dictated by speech recognition. Minor errors in surplus property disposal agent may be present due to voice recognition software. Documentation for date of: 07/08/25 Subjective Subjective Interval history: Reviewing Tele monitor patient was tachy into the 110s with multiple PVCs. Vitals overnight were tachycardia between 100-107, slightly hypertensive, tachypneic 22-25, and x2 episodes of hypoxia in the low 90s. Labs showed CBC unremarkable, BMP showed slight hyponatremia [address] Barnett had recommended IV rocephin and doxycycline PO until 08/18. General surgery recommended outpatient follow-up with a data governance consultant and IV ABX, recommnded no MRI. Cardiology recommended ASA 81mg, xarelto 5mg BID and amio PO with F/U appt at Dr. Hendrickson's office. Patient was complaining of right foot and right knee pain, on chart review of meds patient takes norco 10mg at home. Changed norco 5 to norco 10 prn. Exam Vital Signs Temp Pulse Resp BP Pulse Ox O2 Del Method O2 Flow Rate 97.2 F 88 24 H 126/86 H 96 Room Air 1 07/08/25 12:00 07/08/25 12:00 07/08/25 12:00 07/08/25 12:00 07/08/25 12:00 07/08/25 12:00 07/07/25 12:00 Narrative Exam General: No acute distress, well nourished Eye: PERRL, EOMI, normal conjunctiva, no scleral icterus HENT: Normocephalic, atraumatic, normal hearing, pink and moist mucous membranes, no oral lesions in mouth, throat shows no erythema Neck: Supple, non-tender, no JVD, no lymphadenopathy Lungs: Clear to auscultation bilaterally, non-labored respirations, symmetric chest rise, no use of accessory muscles Heart: Defibrillator noted on right-side of chest. Normal S1 and S2, no S3 or S4 appreciated. Normal rate and regular rhythm, no murmurs, rubs gallops, or edema. Peripheral pulses DP 2+ popliteal pulse 2+, capillary refill brisk distally Abdomen: Soft, non-tender, non-distended, normal bowel sounds. No guarding or rebound tenderness. Musculoskeletal: Normal range of motion and strength. Skin: Skin is warm, dry, no rashes or lesions. Foot: Right foot has a white bandage. Ankle shows less erythema compared to yesterday. Left foot appears well. DP 2+ b/l. Neurologic: Alert, awake and oriented x3. CN II-XII grossly intact. No focal neuro deficits. No signs of meningeal irritation noted. Psychiatric: Cooperative, appropriate mood and affect Objective Labs 07/08/25 05:31 07/08/25 05:31 Labs: Laboratory Results - last 24 hr 07/08/25 05:31 WBC 9.4 RBC 3.67 L Hgb 11.5 L Hct 33.5 L MCV 91 MCH 31.3 MCHC 34.3 RDW Std Deviation 44.4 H Plt Count 283 D Neut % (Auto) 67 Lymph % (Auto) 21 [place] % (Auto) 9 Eos % (Auto) 3 Baso % (Auto) 1 Neut # (Auto) 6.3 Lymph # (Auto) 2.0 [place] # (Auto) 0.8 Eos # (Auto) 0.3 Baso # (Auto) 0.1 Immature Gran # (Auto) 0.04 H Absolute Nucleated RBC 0.00 Immature Gran % 0 Nucleated RBC % 0 Sodium 134 L Potassium 4.6 D Chloride 99 Carbon Dioxide 23.8 Anion Gap 11 BUN 25 H Creatinine 1.5 H Estim Creat Clear Calc 69.0 eGFR 54 L BUN/Creatinine Ratio 17 Glucose 219 H Calculated Osmolality 279 Calcium 9.0 Corrected Calcium 9.1 Total Bilirubin 0.8 AST 26 ALT 22 Alkaline Phosphatase 113 D Total Protein 7.3 Albumin 3.9 Globulin 3.4 Albumin/Globulin Ratio 1.1 L TSH 2.12 ABG Interpretation ABG results: 07/06/25 17:44 VBG pH 7.42 VBG pCO2 39 VBG pO2 32 VBG Base Excess 1 Quality Measures Quality Measures none Assessment & Plan Assessment Current Active Medications: Generic Name Dose Route Start Last Admin Trade Name Freq PRN Reason Stop Dose Admin Acetaminophen 650 mg 07/06/25 18:13 Acetaminophen 325 Mg Tablet PO 08/05/25 18:12 Q6H PRN Fever >100.4 and mild pain 1-3 Hydrocodone Bitart/Acetaminophen 1 tab 07/08/25 14:27 Hydrocodone/Apap 10/325 Tab PO 07/13/25 14:26 Q4HR PRN PAIN SCALE 7-10 (Severe Albuterol/Ipratropium 3 ml 07/06/25 18:07 Albuterol/Ipratropium (Duoneb) Rt [place] 3 Ml Nebu INH 08/05/25 18:06 Q2HR PRN SHORTNESS OF BREATH OR WHEEZE Amiodarone HCl 200 mg 07/07/25 21:00 07/08/25 09:16 Amiodarone Hcl 200 Mg Tablet PO 08/06/25 20:59 200 mg BID SUSY Administration Apixaban 5 mg 07/07/25 21:00 07/08/25 09:16 Apixaban 2.5 Mg Tablet PO 08/06/25 20:59 5 mg BID SUSY Administration Atorvastatin Calcium 40 mg 10/22/25 09:00 07/08/25 09:15 Atorvastatin Calcium 20 Mg Tablet PO 08/07/25 08:59 40 mg QDAY SUSY Administration Protocol Clopidogrel Bisulfate 75 mg 07/08/25 09:00 07/08/25 09:16 Clopidogrel Bisulfate 75 Mg Tablet PO 08/07/25 08:59 75 mg QDAY SUSY Administration Dextrose 50 ml 07/06/25 18:11 Dextrose 50%-Water Inj 50 Ml Syringe IV 08/05/25 18:10 Q15MIN PRN BG <50 OR BG <70 & pt unresponsive Docusate Sodium 100 mg 07/06/25 18:15 07/08/25 09:15 Docusate Sod 100 Mg Capsule PO 08/05/25 18:14 100 mg QDAY SUSY Administration Protocol Famotidine 20 mg 07/06/25 21:00 07/08/25 09:15 Famotidine 20 Mg Tablet PO 08/05/25 20:59 20 mg BID SUSY Administration Glucagon 1 mg 07/06/25 18:11 Glucagon Inj 1 Mg Vial IM Q15MIN PRN BG <70, and no IV access Ceftriaxone Sodium 2 gm/ 50 mls @ 100 mls/hr 07/07/25 11:20 07/08/25 09:11 Sodium Chloride IV 07/14/25 11:19 100 mls/hr QDAY SUSY Administration Doxycycline Hyclate 100 mg/ 100 mls @ 100 mls/hr 07/07/25 21:00 07/08/25 09:12 Sodium Chloride IV 07/14/25 20:59 100 mls/hr BID SUSY Administration Insulin Degludec 15 unit 07/07/25 09:00 07/08/25 09:14 Insulin Degludec 5 Unit/0.05 Ml (Per 5 Units) SC 08/06/25 08:59 15 unit QDAY SUSY Administration Insulin Human Lispro 0 unit 07/06/25 21:00 07/08/25 11:52 Insulin Lispro (Admelog) 1 Unit/0.01 Ml Unit SC 08/05/25 20:59 4 unit ACHS SUSY Administration Protocol Insulin Human Lispro 5 unit 07/07/25 12:00 07/08/25 11:52 Insulin Lispro (Admelog) 1 Unit/0.01 Ml Unit SC 08/06/25 11:59 5 unit TIDWM SUSY Administration Metoprolol Succinate 200 mg 07/08/25 09:00 07/08/25 09:16 Metoprolol Succinate Xl 25 Mg Tabcr PO 08/07/25 08:59 200 mg QDAY SUSY Administration Ondansetron HCl 4 mg 07/06/25 18:13 Ondansetron Inj 2 Mg/Ml Inj 2 Ml IVP 08/05/25 18:12 Q6H PRN NAUSEA OR VOMITING Protocol Pharmacy Consult 1 each 07/06/25 18:07 Pharmacy Renal Dose Adjustment 1 Ea XX 08/05/25 18:06 PRN PRN CONSULT Sacubitril/Valsartan 1 tab 07/07/25 21:00 07/08/25 09:15 Sacubitril 24 Mg/Valsartan 26 Mg Tablet PO 08/06/25 20:59 1 tab BID SUSY Administration Plan Bryant Larkin is a 59 yo male patient with significant past medical history of A- fib with RVR, HFrEF 35 to 40% s/p ICD placement, cardiac arrest, coronary artery disease post CABG, type 2 diabetes mellitus, CKD, BPH, hypertension presented to emergency department for defibrillator firing at 4AM and painful foot ulcer on plantar surface of foot for 7 days. #History of cardiac arrest s/p AICD placement with recurrent discharges #HFrHF #History of A-fib w RVR #CAD s/p CABG Patient says defibrillator fired 4AM and a few times prior to today. History of infection of defibrillator when placed on left-side of chest. 09/19/23 Echo: LV mild systolic dysfunction. Mild LVH. Dyskinetic septal wall. E stimated EF 40-45% EKG shows abnormal rhythm, compared to previous EKG no changes Trops negative, BNP 255 Keep K > 4, Mg > 2 - cards following - Amio 200 PO BID - Cards recommends ASA 81mg, dc plavix 75mg #Diabetic Foot secondary to osteomyelitis #Soft Tissue infection #DMT2 uncontrolled with hyperglycemia, improving Ddx: Charcot's foot vs STI B, 335 POC in ED Hbg A1c: 11.0 WBC 13.0, Lactic Acid 2.3 - ISS with hypoglycemic protocol - hold ozempic, patient on ISS - Gen Surg Dr. Garcai: * Plan: Patient does not require any surgical intervention other than antibiotic intravenously. Patient will require podiatry's help for debriding callus of the right foot. - MRI not needed Gen Surg recommends outpatient Tx - F/U OP with podiatry with 3-5 days from discharge - Dr. Barnett says IV rocephin 2gm and doxycyline PO BID. - PICC line ordered #Paroxysmal atrial fibrillation CHADS-VASc score: 4 (Stroke risk was 4.8% per year in >90,000 patients and 6.7% risk of stroke/TIA/systemic embolism) HAS-BLED score: 1 - cards following recommends amio ggt transitioned to PO, patient to be discharged on amio PO - Eliquis 5 mg twice daily - holding eliquis for PICC line #Chronic Pain - home med norco 10mg q6hrs - started norco 10 q4hrs for mod-severe pain (7-10) #CKD BUN 30, Cr 1.9 Near baseline Cr 1.7 Na 132, K 5.5 Corrected Na 141 ([place]) - CTM renal panel q daily - Mg and Phos x1 AM #BPH -start tamsulosin #HTN - CTM clinically - restart home meds when med recon confirmed Checklist: Admit: Tele Diet: NPO starting midnight PUD PPX: Famotidine VTE PPX: Eliquis 5 BID, held for PICC line Bowel Reg: Doc-Senna Electrolytes: Replete prn Case was discussed with Attending Dr. Larkin, and Senior Resident Dr. Zaira Hale DO PGY-1 Attending Provider Attestation/Addendum I have discussed and was present for the essential components of the history, physical examination, diagnosis, and treatment plan with the resident. I agree with the patient's care as documented by the resident and amended herein by me. Elliot Larkin DO. Although this document has been carefully reviewed, there may still be some phonetic and other typographical errors. These errors are purely grammatical due to imperfections in the software program and should not be construed in any way to compromise the substance of the patient's medical care during this visit. Patient seen and evaluated this AM. No acute events overnight, vital signs stable, patient afebrile, labs largely unremarkable, creatinine stable at 1.5. The patient's right foot osteomyelitis, ID did recommend ceftriaxone 2 g daily through 08/18 as well as doxycycline 100 mg p.o. twice daily also through 08/18. Home health orders for IV antibiotics have been placed which will also include weekly CBC ESR and renal panel per ID Luis A. We will also look at getting the patient some DME as it is hard for him to walk on that foot, will also look at dressing changes for further ulcer on his right foot as well. As far as his cardiac component, cardiology consulted, appreciate recommendations, the patient presently on Entresto, metoprolol succinate, amiodarone p.o., Eliquis, statin and Plavix. Patient was on digoxin and diltiazem at home, per his automotive artist, Dr. Hendrickson's recommendations however now that the patient is on Amio, will likely hold digoxin and diltiazem for now until patient follows up with Dr. Hendrickson in [place] upon discharge. Also need to know from cardiology if the patient needs triple therapy, presently on Entresto and Plavix however aspirin was documented in their their notes, unclear if triple therapy is actually necessary at this time, appreciate recommendations.
--- NOTE | 2025-07-08 16:19 | ECHO_ITS ---
Transthoracic Echo Report Ht (in): 74 Wt (lb): 222 Exam Location: [facility] Status: Inpatient Housekeeper Manager: Hallie Lua Indications: Procedure Performed: BP: 135 / 89 HR: 127 MEASUREMENTS (Male / Female) Normal Values 2D ECHO LV Diastolic Diameter PLAX 6.5 cm 4.2 - 5.9 / 3.9 - 5.3 cm LV Systolic Diameter PLAX 4.7 cm IVS Diastolic Thickness 0.8 cm 0.6 - 1.0 / 0.6 - 0.9 cm LVPW Diastolic Thickness 1.4 cm 0.6 - 1.0 / 0.6 - 0.9 cm LV Relative Wall Thickness 0.3 LVOT Diameter 2.0 cm LV Ejection Fraction MOD BP 39.9 % >= 55 % LV Cardiac Index MOD BP 3683.3 cm?/min?m? LV Ejection Fraction MOD 4C 43.8 % LV Cardiac Index MOD 4C 5002.8 cm?/min?m? LV Ejection Fraction 4C AL 46.9 % LV Cardiac Index 4C AL 5519.3 cm?/min?m? LV Ejection Fraction MOD 2C 38.2 % LV Cardiac Index MOD 2C 2666.3 cm?/min?m? LV Ejection Fraction 2C AL 40.6 % LV Cardiac Index 2C AL 2808.3 cm?/min?m? LA Volume Index 39.7 cm?/m? 16 - 28 cm?/m? Ascending Aorta Diameter 3.1 cm M-MODE AV Cusp Separation MM 1.4 cm DOPPLER AV Peak Velocity 177.0 cm/s AV Peak Gradient 12.5 mmHg AV Mean Gradient 6.0 mmHg AV Velocity Time Integral 22.6 cm LVOT Peak Velocity 157.0 cm/s LVOT Peak Gradient 9.9 mmHg LVOT Velocity Time Integral 22.6 cm LVOT Cardiac Index 3903.2 cm?/min?m? AV Area Cont Eq vti 3.1 cm? AV Area Cont Eq pk 2.8 cm? MV Area PHT 4.0 cm? Mitral E Point Velocity 96.8 cm/s TR Peak Velocity 149.5 cm/s TR Peak Gradient 8.9 mmHg PV Peak Velocity 110.0 cm/s PV Peak Gradient 4.8 mmHg FINDINGS Left Ventricle Normal left ventricular size. Mild LVH. Mild systolic function. Dyskinetic septal wall.and akinetic apex. Indeterminate diastology due to Afib.The ejection fraction is visually estimated at 35 %. Right Ventricle The right ventricle is mildly dilated. Mild systolic dysfunction. Estimated right ventriculare systolic pressure, 40mmHg. RAP 8. Mild HTN. Pacing wire present. Left Atrium The left atrial cavity size is severely increased. Right Atrium The right atrial cavity size is moderately increased. Atrial Septum The interatrial septum appears normal with no evidence of a shunt. Aorta The aorta is normal by two-dimensional, color flow and Doppler interrogation. Mitral Valve Mitral annular calcification. Aortic Valve Aortic valve sclerosis without stenosis.Trace aortic valve regurgitation. Tricuspid Valve The tricuspid valve is normal by two-dimensional, color flow and Doppler interrogation.There is mild tricuspid valve regurgitation. Pulmonic Valve The pulmonic valve is not well visualized. There is no significant pulmonic valve regurgitation. Vessels The pulmonary artery appears normal. The inferior vena cava pulmonary and hepatic veins appear normal. Pericardium The pericardium is normal by two-dimensional imaging. There is no significant pericardial effusion. CONCLUSIONS Indication: HFrEF, device firing, osteomyelistis left ventricle is mildly dilated with moderate global hypokinesis Dyskinetic septal wall.and akinetic apex. Estimated EF 35%. RV mildly dilated. Mild systolic dysfunction. RVSP 40mmHg with RAP 8. Pacing wire present. Severely dilated LA and moderately dilated RA Mild mitral and tricuspid regurgitation Aortic valve sclerosis without stenosis and trace AR Eunice Briones (Electronically Signed) Final Date: 10 July 2025 14:48
[2025-07-08] MEDS: DOXYCYCLINE 100 MG TABLET PO (20:28)
[2025-07-09] VITALS (14 sets, daily range): BP systolic 111–163; BP diastolic 82–127; PULSE 85–121; RESP 12–99; TEMP 36.2–37.1; O2SAT 95–100; BMI 28.6
[2025-07-09 05:47] LABS: Basophils # (Auto) 0.1 Thou/mm3 (0.0-0.2); Basophils % (Auto) 1 % (0-2.5); Eosinophils # (Auto) 0.2 Thou/mm3 (0.0-0.5); Eosinophils % (Auto) 3 % (0-10); Hematocrit 33.5 % (41.0-53.0); Hemoglobin 11.6 g/dL (13.5-16.0); Immature Granulocytes Auto 0.05 Thou/mm3 (0.00-0.00); Lymphocytes # (Auto) 1.8 Thou/mm3 (1.0-4.8); Lymphocytes % (Auto) 20 % (10-50); Mean Corpuscular HGB Conc 34.6 g/dl (31.0-37.0); Mean Corpuscular Hemoglobin 31.7 pg (25.0-35.0); Mean Corpuscular Volume 92 fL (80-100); Monocytes # (Auto) 0.8 Thou/mm3 (0.0-0.8); Monocytes % (Auto) 9 % (0-12); Neutrophils # (Auto) 6.2 Thou/mm3 (1.8-7.7); Neutrophils % (Auto) 67 % (37-80); Nucleated Red Blood Cell # 0.00 Thou/mm3 (0.00-0.00); Nucleated Red Blood Cell % 0 /100 WBC (0); Platelet Count 325 Thou/mm3 (140-440); RDW Standard Deviation 45.4 fL (35.1-43.9); Red Blood Count 3.66 Miln/mm3 (4.50-5.90); White Blood Count 9.2 Thou/mm3 (3.8-10.6)
[2025-07-09 06:29] LABS: Alanine Aminotransferase 19 U/L (10-49); Albumin, Serum 3.9 gm/dL (3.5-5.0); Albumin/Globulin Ratio 1.1 (1.2-2.2); Alkaline Phosphatase 111 U/L (46-116); Anion Gap 14 (7-16); Aspartate Amino Transferase 21 U/L (0-34); BUN/Creatinine Ratio 18 Ratio (12-20); Bilirubin,Total 0.7 mg/dL (0.3-1.2); Blood Urea Nitrogen 27 mg/dL (9-23); C-Reactive Protein 12.4 mg/dL (0.0-0.9); Calcium 9.0 mg/dL (8.3-10.6); Calcium (Corrected) 9.1 mg/dL (8.5-10.1); Carbon Dioxide 22.4 mMol/L (20.0-31.0); Chloride 100 mMol/L (98-107); Creatinine (Component) 1.5 mg/dL (0.6-1.3); Estimated Creatinine Clearance 69.0 mL/min (>60); Globulin 3.6 gm/dL (2.3-3.5); Glucose 218 mg/dL (74-106); Osmolality,Calculated 284 (275-295); Potassium 4.7 mMol/L (3.4-5.1); Sodium 136 mMol/L (136-145); Total Protein 7.5 gm/dL (5.7-8.2); eGFR 54 See Note
--- NOTE | 2025-07-09 07:00 | XR_ITS ---
Examination: Ultrasound-guided needle placement right brachial vein. Fluoroscopy AP chest, portable, single view INDICATIONS: Need for long-term intravenous antibiotic therapy Exam date and time: July 09, 2025, 10:59 a.m. A timeout was completed verifying correct patient, procedure, site, positioning Informed consent provided Technique: The patient's site was prepped and draped in sterile fashion. Maximum Sterile Barrier Technique used including cap, mask, sterile gown, sterile gloves, and sterile full body drape. If ultrasound technique used: sterile gel and sterile probe covers. Hand Hygiene performed using proper scrub, soap and water, or alcohol-based hand rub. Site right portable apparatus utilized to confirm patency of the right brachial vein Utilizing ultrasonographic guidance successful 21-gauge needle puncture into the left brachial vein Ultrasound images recorded and stored. 5 cc 1% lidocaine administered for local anesthetic. Patient experienced severe pain radiating to the hand with placement of the dilator over the wire guide The procedure was terminated The patient tolerated the procedure well and was in stable and satisfactory condition at completion of the procedure Impression: Successful ultrasound-guided needle placement right brachial vein It was elected not to perform the procedure given the patient's description of severe pain radiating down the arm into the hand
[2025-07-09] MEDS: INSULIN LISPRO (AdmeLOG) 1 UNIT/0.01 ML UNIT SC ×4 (08:09→20:44)
[2025-07-09] MEDS: INSULIN DEGLUDEC 5 UNIT/0.05 ML (PER 5 UNITS) 20 UNIT SC (08:11)
[2025-07-09] MEDS: AMIODARONE HCL 200 MG TABLET PO ×2 (08:18→20:25)
[2025-07-09] MEDS: cefTRIAXone 2 GM in SODIUM CHLORIDE 0.9% (Popper) 50 ML IV (08:18)
[2025-07-09] MEDS: FAMOTIDINE 20 MG TABLET PO ×2 (08:19→20:25)
[2025-07-09] MEDS: DOCUSATE SOD 100 MG CAPSULE PO (08:19)
[2025-07-09] MEDS: ATORVASTATIN CALCIUM 20 MG TABLET 40 MG PO (08:58)
[2025-07-09] MEDS: DOXYCYCLINE 100 MG TABLET PO ×2 (08:59→20:25)
[2025-07-09 09:27] LABS: Vancomycin,Trough 4.3 mcg/mL (5.0-10.0)
--- NOTE | 2025-07-09 09:32 | PC.SS ---
SS follow up note; Patient is pending a PIC LINE. SS met with patient and his , Araceli Uriarte in regards to discharge plan. SS inquired about him needing IV ABX. The patient wishes to return home with HH. Patient's will administer IV ABX. No preference in HH agency.
--- NOTE | 2025-07-09 11:28 | PC.CC ---
Addendum entered and electronically signed by Liz Bhatia [facility] 07/10/25 13:36: [facility] SOC 07/11; updated CONNIE Wu. Addendum entered and electronically signed by Liz Bhatia [facility] 07/10/25 11:52: PICC placed this morning. [facility] confirmed meds delivered 07/09. S/W [facility] to confirm able to see patient tomorrow. Awaiting call back. Addendum entered and electronically signed by Liz Bhatia [facility] 07/09/25 14:24: PICC placement failed today, another will be attempted tomorrow per rounding. Updated [facility] and [facility]. [facility] to deliver medication today at 4pm. [facility] had provided SOC 07/10; no updated SOC at this time. Original Note: HH IV Abx. [facility] HH booked, SOC 24-48 hours of discharge. [facility] booked. Awaiting PICC line and confirmation of med delivery and HH RN.
[2025-07-09] MEDS: HEPARIN SOD LOCK SYR 100 UNIT/ML 500 UNIT STFIELD (11:30)
[2025-07-09] MEDS: LIDOCAINE INJ PF 1% 5 ML VIAL 9 ML INFL (11:35)
--- NOTE | 2025-07-09 11:59 | ESPR_ITS ---
<Statement entered by Kevyn Man MD - 07/10/25 14:34> I personally examined evaluated this patient with PGY 2 Dr. Sanford RUDOLPH patient is doing quite well not having chest pain shortness of breath tolerating amiodarone well now oral amiodarone has been given for arrhythmia so far no further episodes of VT VF does not complain of any chest pain clinically stable. Continue to monitor the patient closely on telemetry for any arrhythmias Documentation for date of: 07/09/25 Subjective Subjective Interval history: No acute overnight events. Seen and examined at bedside after going to [facility] for PICC line but was unsuccessful and per patient will reattempt tomorrow. Telemetry reviewed and heart rate remaining stable in the 100s and denies any chest discomfort, shortness of breath, palpitations. Continue amiodarone 2 mg BID for arrhythmias and aspirin and Eliquis for CAD and A-fib, respectively. Exam Vital Signs Temp Pulse Resp BP Pulse Ox O2 Del Method O2 Flow Rate 98.1 F 97 22 H 148/127 H 100 Room Air 1 07/09/25 10:13 07/09/25 11:40 07/09/25 11:40 07/09/25 11:40 07/09/25 11:40 07/09/25 11:40 07/09/25 00:00 Narrative Exam General: AOx3, no acute distress, able to speak full sentences HEENT: NC/AT, mucous membranes moist, bilateral sclera anicteric Cardiovascular: device on right chest wall, irregular rhythm, S1/S2 present, no murmurs appreciated Pulmonary: clear to auscultation bilaterally, no rales/rhonchi/wheezes Abdominal: RLE bandaged; soft, non-tender, non-distended, no rebound/guarding, normal bowel sounds present Musculoskeletal: normal ROM, no peripheral edema Skin: warm and dry, intact, no rashes Neuro: CN II-XII intact, no focal deficits Objective Labs 07/09/25 04:33 07/09/25 04:33 Labs: Laboratory Results - last 24 hr 07/09/25 07/09/25 04:33 08:46 WBC 9.2 RBC 3.66 L Hgb 11.6 L Hct 33.5 L MCV 92 MCH 31.7 MCHC 34.6 RDW Std Deviation 45.4 H Plt Count 325 D Neut % (Auto) 67 Lymph % (Auto) 20 [place] % (Auto) 9 Eos % (Auto) 3 Baso % (Auto) 1 Neut # (Auto) 6.2 Lymph # (Auto) 1.8 [place] # (Auto) 0.8 Eos # (Auto) 0.2 Baso # (Auto) 0.1 Immature Gran # (Auto) 0.05 H Absolute Nucleated RBC 0.00 Immature Gran % 1 H Nucleated RBC % 0 Sodium 136 Potassium 4.7 Chloride 100 Carbon Dioxide 22.4 Anion Gap 14 BUN 27 H Creatinine 1.5 H Estim Creat Clear Calc 69.0 eGFR 54 L BUN/Creatinine Ratio 18 Glucose 218 H Calculated Osmolality 284 Calcium 9.0 Corrected Calcium 9.1 Total Bilirubin 0.7 AST 21 ALT 19 Alkaline Phosphatase 111 C-Reactive Prot, Quant 12.4 H Total Protein 7.5 Albumin 3.9 Globulin 3.6 H Albumin/Globulin Ratio 1.1 L Vancomycin Trough 4.3 L ABG Interpretation ABG results: 07/06/25 17:44 VBG pH 7.42 VBG pCO2 39 VBG pO2 32 VBG Base Excess 1 Quality Measures Quality Measures none Assessment & Plan Assessment Current Active Medications: Generic Name Dose Route Start Last Admin Trade Name Freq PRN Reason Stop Dose Admin Acetaminophen 650 mg 07/06/25 18:13 Acetaminophen 325 Mg Tablet PO 08/05/25 18:12 Q6H PRN Fever >100.4 and mild pain 1-3 Hydrocodone Bitart/Acetaminophen 1 tab 07/08/25 14:27 07/09/25 08:58 Hydrocodone/Apap 10/325 Tab PO 07/13/25 14:26 1 tab Q4HR PRN Administration PAIN SCALE 7-10 (Severe Albuterol/Ipratropium 3 ml 07/06/25 18:07 Albuterol/Ipratropium (Duoneb) Rt [place] 3 Ml Nebu INH 08/05/25 18:06 Q2HR PRN SHORTNESS OF BREATH OR WHEEZE Amiodarone HCl 200 mg 07/07/25 21:00 07/09/25 08:18 Amiodarone Hcl 200 Mg Tablet PO 08/06/25 20:59 200 mg BID SUSY Administration Apixaban 5 mg 07/07/25 21:00 07/08/25 09:16 Apixaban 2.5 Mg Tablet PO 08/06/25 20:59 5 mg On Hold: 07/08/25 15:04 BID SUSY Administration Aspirin 81 mg 07/09/25 09:15 Aspirin Ec 81 Mg Tabec PO 08/08/25 09:14 DAILY SUSY Atorvastatin Calcium 40 mg 07/08/25 09:00 07/09/25 08:58 Atorvastatin Calcium 20 Mg Tablet PO 08/07/25 08:59 40 mg QDAY [facility] Administration Protocol Dextrose 50 ml 07/06/25 18:11 Dextrose 50%-Water Inj 50 Ml Syringe IV 08/05/25 18:10 Q15MIN PRN BG <50 OR BG <70 & pt unresponsive Docusate Sodium 100 mg 07/06/25 18:15 07/09/25 08:19 Docusate Sod 100 Mg Capsule PO 08/05/25 18:14 100 mg QDAY [facility] Administration Protocol Doxycycline Hyclate 100 mg 07/08/25 21:00 07/09/25 08:59 Doxycycline 100 Mg Tablet PO 07/15/25 20:59 100 mg BID SUSY Administration Famotidine 20 mg 07/06/25 21:00 07/09/25 08:19 Famotidine 20 Mg Tablet PO 08/05/25 20:59 20 mg BID SUSY Administration Glucagon 1 mg 07/06/25 18:11 Glucagon Inj 1 Mg Vial IM Q15MIN PRN BG <70, and no IV access Ceftriaxone Sodium 2 gm/ 50 mls @ 100 mls/hr 07/07/25 11:20 07/09/25 08:18 Sodium Chloride IV 07/14/25 11:19 100 mls/hr QDAY [facility] Administration Insulin Degludec 20 unit 07/09/25 09:00 07/09/25 08:11 Insulin Degludec 5 Unit/0.05 Ml (Per 5 Units) SC 08/08/25 08:59 20 unit QDAY [facility] Administration Insulin Human Lispro 0 unit 07/06/25 21:00 07/09/25 08:09 Insulin Lispro (Admelog) 1 Unit/0.01 Ml Unit SC 08/05/25 20:59 4 unit ACHS [facility] Administration Protocol Insulin Human Lispro 6 unit 07/09/25 12:00 Insulin Lispro (Admelog) 1 Unit/0.01 Ml Unit SC 08/08/25 11:59 TIDWM [facility] Metoprolol Succinate 200 mg 07/08/25 09:00 07/09/25 08:20 Metoprolol Succinate Xl 25 Mg Tabcr PO 08/07/25 08:59 Not Given QDAY SUSY Ondansetron HCl 4 mg 07/06/25 18:13 Ondansetron Inj 2 Mg/Ml Inj 2 Ml IVP 08/05/25 18:12 Q6H PRN NAUSEA OR VOMITING Protocol Pharmacy Consult 1 each 07/06/25 18:07 Pharmacy Renal Dose Adjustment 1 Ea XX 08/05/25 18:06 PRN PRN CONSULT Sacubitril/Valsartan 1 tab 07/07/25 21:00 07/09/25 08:18 Sacubitril 24 Mg/Valsartan 26 Mg Tablet PO 08/06/25 20:59 1 tab BID SUSY Administration Plan Bryant Larkin is a 59-year-old male with past medical history of multiple episodes of cardiac arrest status post AICD placement and replacement, CAD status post CABG (2019), paroxysmal A-fib, 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 #History of multiple episodes of cardiac arrest #Status post AICD placement, complicated by chest wall infection since removed #Status post [employer]ING-D vs AICD placement Presents after defibrillator fired this morning and noted to have fired last week and earlier this year in November. Did not get evaluated last week but presented in November and interrogation showed VF and appropriate shock and followed up with tube repairer afterwards. Suspect that this event may be triggered by osteomyelitis and/or uncontrolled diabetes mellitus. Monitor and EKG showed paced rhythm with underlying atrial fibrillation. Although patient has had hypothyroid issues in the past on amiodarone, benefits outweigh risks, and can give levothyroxine should hypothyroidism develop. Device interrogation revealed two episodes of VF since 06/26 that required intervention but were prior to hospitalization. Thus, suspect that his pain he experienced when he presented may have been from his osteomyelitis as he states he has woken up from pain since being admitted. ? Amiodarone 200 mg twice daily ? TSH within normal limits ? Keep Mg > 2, K > 4 #History of CAD status post CABG Appears to be on aspirin and plavix outpatient ? Resume home aspirin 81 mg daily, no need for plavix #Paroxysmal atrial fibrillation Appears to be on diltiazem ER 360 mg daily, digoxin 0.125 mg daily, and metoprolol succinate 200 mg daily ? Eliquis 5 mg twice daily ? Amiodarone as above #HFrEF (EF 40-45% in 2023) Appears to be on lasix 40 mg daily, Entresto 24-26 mg twice daily, and metoprolol succinate 200 mg daily ? Can continue entresto per primary team discretion; patient appears to have CKD ? Pending echo #Type 2 diabetes mellitus #Osteomyelitis #Chronic kidney disease #Lactic acidosis ? Continue management per primary team ----- Plan discussed with attending physician Dr. Donovan Rudolph MD PGY-2 Internal Medicine
[2025-07-09] MEDS: INSULIN LISPRO (AdmeLOG) 1 UNIT/0.01 ML UNIT 6 UNIT SC ×2 (12:21→17:38)
[2025-07-09] MEDS: ASPIRIN EC 81 MG TABEC PO (12:21)
--- NOTE | 2025-07-09 14:32 | ESPR_ITS ---
<Statement entered by Dexter Meneses MD - 07/09/25 21:05> I saw and examined patient personally and supervised PGY 1 resident, Dr. Hale with formulating a management plan. I agree with the documentation with the exceptions as listed below. Bryant Larkin is a 59 yo male patient with significant past medical history of A- fib with RVR, HFrEF 35 to 40% s/p ICD placement, cardiac arrest, coronary artery disease post CABG, type 2 diabetes mellitus, CKD, BPH, hypertension presented to emergency department for defibrillator firing at 4AM and painful foot ulcer on plantar surface of foot for 7 days. Problem list: 1. History of cardiac arrest s/p AICD placement with recurrent discharges 2. Osteomyelitis of right foot secondary to uncontrolled diabetes mellitus 3. Diabetic neuropathy 4. History of CAD s/p CABG 5. Paroxysmal atrial fibrillation 6. CKD 7. BPH Patient continues to be on ceftriaxone 2 g IV daily along with doxycycline 100 mg p.o. twice daily for osteomyelitis of right foot. PICC line placement was attempted on the right basilar vein today but was stopped due to patient experiencing severe right arm pain after dilatation. Procedure was aborted. IR guided PICC line insertion was again ordered for tomorrow morning. Eliquis and Plavix continue to be on hold in preparation for procedure. Once PICC line is placed, anticipate discharge to home with home health to complete 6 weeks of IV antibiotics for osteomyelitis. Plan of care discussed with Attending Dr. Chaya Meneses MD PGY 2 Disclaimer: This note was dictated by speech recognition. Minor errors in oil field equipment mechanic supervisor may be present due to voice recognition software. Documentation for date of: 07/09/25 Subjective Subjective Interval history: NAEON. VSS. Labs reviewed CBC unremarkable, BMP BUN 27, Cr 1.5 past history of CKD baseline 1.7. CRP 12.4. BCx x2 NG 48 hrs. Failed PICC placement due to pain of RUE. PICC pending tomorrow, will administer acute pain prn prior to procedure. Patient says he cannot walk on his foot, ordered PT for eval. Discussed with patient plan for outpatient ABX Tx, medications we stopped per our cardiology team and the recommendations from Gen Surg to f/u with podiatry and wound care. Exam Vital Signs Temp Pulse Resp BP Pulse Ox O2 Del Method O2 Flow Rate 98.8 F 106 H 17 124/99 H 95 Room Air 1 07/09/25 12:00 07/09/25 12:00 07/09/25 12:00 07/09/25 12:00 07/09/25 12:00 07/09/25 12:00 07/09/25 00:00 Narrative Exam General: No acute distress, well nourished Eye: PERRL, EOMI, normal conjunctiva, no scleral icterus HENT: Normocephalic, atraumatic, normal hearing, pink and moist mucous membranes, no oral lesions in mouth, throat shows no erythema Neck: Supple, non-tender, no JVD, no lymphadenopathy Lungs: Clear to auscultation bilaterally, non-labored respirations, symmetric chest rise, no use of accessory muscles Heart: Defibrillator noted on right-side of chest. Normal S1 and S2, no S3 or S4 appreciated. Normal rate and regular rhythm, no murmurs, rubs gallops, or edema. Peripheral pulses DP 2+ popliteal pulse 2+, capillary refill brisk distally Abdomen: Soft, non-tender, non-distended, normal bowel sounds. No guarding or rebound tenderness. Musculoskeletal: Normal range of motion and strength. Skin: Skin is warm, dry, no rashes or lesions. Foot: Right foot has a white bandage. Ankle shows less erythema compared to yesterday. Left foot appears well. DP 2+ b/l. Neurologic: Alert, awake and oriented x3. CN II-XII grossly intact. No focal neuro deficits. No signs of meningeal irritation noted. Psychiatric: Cooperative, appropriate mood and affect Objective Labs 07/09/25 04:33 07/09/25 04:33 Labs: Laboratory Results - last 24 hr 07/09/25 07/09/25 04:33 08:46 WBC 9.2 RBC 3.66 L Hgb 11.6 L Hct 33.5 L MCV 92 MCH 31.7 MCHC 34.6 RDW Std Deviation 45.4 H Plt Count 325 D Neut % (Auto) 67 Lymph % (Auto) 20 [place] % (Auto) 9 Eos % (Auto) 3 Baso % (Auto) 1 Neut # (Auto) 6.2 Lymph # (Auto) 1.8 [place] # (Auto) 0.8 Eos # (Auto) 0.2 Baso # (Auto) 0.1 Immature Gran # (Auto) 0.05 H Absolute Nucleated RBC 0.00 Immature Gran % 1 H Nucleated RBC % 0 Sodium 136 Potassium 4.7 Chloride 100 Carbon Dioxide 22.4 Anion Gap 14 BUN 27 H Creatinine 1.5 H Estim Creat Clear Calc 69.0 eGFR 54 L BUN/Creatinine Ratio 18 Glucose 218 H Calculated Osmolality 284 Calcium 9.0 Corrected Calcium 9.1 Total Bilirubin 0.7 AST 21 ALT 19 Alkaline Phosphatase 111 C-Reactive Prot, Quant 12.4 H Total Protein 7.5 Albumin 3.9 Globulin 3.6 H Albumin/Globulin Ratio 1.1 L Vancomycin Trough 4.3 L ABG Interpretation ABG results: 07/06/25 17:44 VBG pH 7.42 VBG pCO2 39 VBG pO2 32 VBG Base Excess 1 Quality Measures Quality Measures none Assessment & Plan Assessment Current Active Medications: Generic Name Dose Route Start Last Admin Trade Name Freq PRN Reason Stop Dose Admin Acetaminophen 650 mg 07/06/25 18:13 Acetaminophen 325 Mg Tablet PO 08/05/25 18:12 Q6H PRN Fever >100.4 and mild pain 1-3 Hydrocodone Bitart/Acetaminophen 1 tab 07/08/25 14:27 07/09/25 08:58 Hydrocodone/Apap 10/325 Tab PO 07/13/25 14:26 1 tab Q4HR PRN Administration PAIN SCALE 7-10 (Severe Albuterol/Ipratropium 3 ml 07/06/25 18:07 Albuterol/Ipratropium (Duoneb) Rt [place] 3 Ml Nebu INH 08/05/25 18:06 Q2HR PRN SHORTNESS OF BREATH OR WHEEZE Amiodarone HCl 200 mg 07/07/25 21:00 07/09/25 08:18 Amiodarone Hcl 200 Mg Tablet PO 08/06/25 20:59 200 mg BID SUSY Administration Apixaban 5 mg 07/07/25 21:00 07/08/25 09:16 Apixaban 2.5 Mg Tablet PO 08/06/25 20:59 5 mg On Hold: 07/08/25 15:04 BID SUSY Administration Aspirin 81 mg 07/09/25 09:15 07/09/25 12:21 Aspirin Ec 81 Mg Tabec PO 08/08/25 09:14 81 mg DAILY SUSY Administration Atorvastatin Calcium 40 mg 07/08/25 09:00 07/09/25 08:58 Atorvastatin Calcium 20 Mg Tablet PO 08/07/25 08:59 40 mg QDAY SUSY Administration Protocol Dextrose 50 ml 07/06/25 18:11 Dextrose 50%-Water Inj 50 Ml Syringe IV 08/05/25 18:10 Q15MIN PRN BG <50 OR BG <70 & pt unresponsive Docusate Sodium 100 mg 07/06/25 18:15 07/09/25 08:19 Docusate Sod 100 Mg Capsule PO 08/05/25 18:14 100 mg QDAY SUSY Administration Protocol Doxycycline Hyclate 100 mg 07/08/25 21:00 07/09/25 08:59 Doxycycline 100 Mg Tablet PO 07/15/25 20:59 100 mg BID SUSY Administration Famotidine 20 mg 07/06/25 21:00 07/09/25 08:19 Famotidine 20 Mg Tablet PO 08/05/25 20:59 20 mg BID SUSY Administration Glucagon 1 mg 07/06/25 18:11 Glucagon Inj 1 Mg Vial IM Q15MIN PRN BG <70, and no IV access Ceftriaxone Sodium 2 gm/ 50 mls @ 100 mls/hr 07/07/25 11:20 07/09/25 08:18 Sodium Chloride IV 07/14/25 11:19 100 mls/hr QDAY [facility] Administration Insulin Degludec 20 unit 07/09/25 09:00 07/09/25 08:11 Insulin Degludec 5 Unit/0.05 Ml (Per 5 Units) SC 08/08/25 08:59 20 unit QDAY [facility] Administration Insulin Human Lispro 0 unit 07/06/25 21:00 07/09/25 12:20 Insulin Lispro (Admelog) 1 Unit/0.01 Ml Unit SC 08/05/25 20:59 3 unit ACHS [facility] Administration Protocol Insulin Human Lispro 6 unit 07/09/25 12:00 07/09/25 12:21 Insulin Lispro (Admelog) 1 Unit/0.01 Ml Unit SC 08/08/25 11:59 6 unit TIDWM SUSY Administration Metoprolol Succinate 200 mg 07/08/25 09:00 07/09/25 08:20 Metoprolol Succinate Xl 25 Mg Tabcr PO 08/07/25 08:59 Not Given QDAY SUSY Ondansetron HCl 4 mg 07/06/25 18:13 Ondansetron Inj 2 Mg/Ml Inj 2 Ml IVP 08/05/25 18:12 Q6H PRN NAUSEA OR VOMITING Protocol Pharmacy Consult 1 each 07/06/25 18:07 Pharmacy Renal Dose Adjustment 1 Ea XX 08/05/25 18:06 PRN PRN CONSULT Sacubitril/Valsartan 1 tab 07/07/25 21:00 07/09/25 08:18 Sacubitril 24 Mg/Valsartan 26 Mg Tablet PO 08/06/25 20:59 1 tab BID SUSY Administration Plan Bryant Larikn is a 59 yo male patient with significant past medical history of A- fib with RVR, HFrEF 35 to 40% s/p ICD placement, cardiac arrest, coronary artery disease post CABG, type 2 diabetes mellitus, CKD, BPH, hypertension presented to emergency department for defibrillator firing at 4AM and painful foot ulcer on plantar surface of foot for 7 days. #History of cardiac arrest s/p AICD placement with recurrent discharges #HFrHF #History of A-fib w RVR #CAD s/p CABG Patient says defibrillator fired 4AM and a few times prior to today. History of infection of defibrillator when placed on left-side of chest. 09/19/23 Echo: LV mild systolic dysfunction. Mild LVH. Dyskinetic septal wall. E stimated EF 40-45% EKG shows abnormal rhythm, compared to previous EKG no changes Trops negative, BNP 255 Keep K > 4, Mg > 2 - cards following - Amio 200 PO BID - Cards recommends ASA 81mg, dc plavix 75mg - completed med rec for discharge medications #Diabetic Foot secondary to osteomyelitis #Soft Tissue infection #DMT2 uncontrolled with hyperglycemia, improving Ddx: Charcot's foot vs STI B, 335 POC in ED Hbg A1c: 11.0 WBC 13.0, Lactic Acid 2.3 - ISS with hypoglycemic protocol - hold ozempic, patient on ISS - Gen Surg Dr. Garcia: * Plan: Patient does not require any surgical intervention other than antibiotic intravenously. Patient will require podiatry's help for debriding callus of the right foot. - MRI not needed Gen Surg recommends outpatient Tx - F/U OP with podiatry with 3-5 days from discharge - Dr. Barnett says IV rocephin 2gm and doxycyline PO BID - PICC line pending tomorrow #Paroxysmal atrial fibrillation CHADS-VASc score: 4 (Stroke risk was 4.8% per year in >90,000 patients and 6.7% risk of stroke/TIA/systemic embolism) HAS-BLED score: 1 - cards following recommends amio ggt transitioned to PO, patient to be discharged on amio PO - Eliquis 5 mg twice daily - holding eliquis for PICC line #Chronic Pain - home med norco 10mg q6hrs - started norco 10 q4hrs for mod-severe pain (7-10) #CKD BUN 30, Cr 1.9 Near baseline Cr 1.7 Na 132, K 5.5 Corrected Na 141 ([place]) - CTM renal panel q daily - Mg and Phos x1 AM #BPH -start tamsulosin #HTN - CTM clinically - restart home meds when med recon confirmed Checklist: Admit: Tele Diet: NPO starting midnight PUD PPX: Famotidine VTE PPX: Eliquis 5 BID, held for PICC line Bowel Reg: Doc-Senna Electrolytes: Replete prn Case was discussed with Attending Dr. Larkin, and Senior Resident Dr. Zaira Hale, DO PGY-1
--- NOTE | 2025-07-09 16:03 | PC.NURSE ---
Spoke to SSW Jazmin, patient has concerns about going home with home health and would rather go to SNF for rehab. SSW will follow up with patient.
--- NOTE | 2025-07-09 16:33 | PC.SS ---
SS follow up note; SS met with patient at bedside, Patient's nurse informed SS patient had concerns about discharge plan. Patient reports as long as he has a Wheelchair and has transportation home he is agreeable to discharge home. SS sent Wheelchair referral via [facility]. SS will follow up tomorrow.
[2025-07-10] VITALS (11 sets, daily range): BP systolic 107–161; BP diastolic 78–107; PULSE 74–113; RESP 17–97; TEMP 36.1–36.8; O2SAT 96–100; BMI 28.2; BMI 13.0
[2025-07-10 06:11] LABS: Basophils # (Auto) 0.1 Thou/mm3 (0.0-0.2); Basophils % (Auto) 1 % (0-2.5); Eosinophils # (Auto) 0.2 Thou/mm3 (0.0-0.5); Eosinophils % (Auto) 3 % (0-10); Hematocrit 37.2 % (41.0-53.0); Hemoglobin 12.7 g/dL (13.5-16.0); Immature Granulocytes Auto 0.03 Thou/mm3 (0.00-0.00); Lymphocytes # (Auto) 2.1 Thou/mm3 (1.0-4.8); Lymphocytes % (Auto) 26 % (10-50); Mean Corpuscular HGB Conc 34.1 g/dl (31.0-37.0); Mean Corpuscular Hemoglobin 31.4 pg (25.0-35.0); Mean Corpuscular Volume 92 fL (80-100); Monocytes # (Auto) 0.7 Thou/mm3 (0.0-0.8); Monocytes % (Auto) 8 % (0-12); Neutrophils # (Auto) 5.0 Thou/mm3 (1.8-7.7); Neutrophils % (Auto) 62 % (37-80); Nucleated Red Blood Cell # 0.00 Thou/mm3 (0.00-0.00); Nucleated Red Blood Cell % 0 /100 WBC (0); Platelet Count 338 Thou/mm3 (140-440); RDW Standard Deviation 45.5 fL (35.1-43.9); Red Blood Count 4.04 Miln/mm3 (4.50-5.90); White Blood Count 8.1 Thou/mm3 (3.8-10.6)
[2025-07-10 06:32] LABS: Alanine Aminotransferase 22 U/L (10-49); Albumin, Serum 4.3 gm/dL (3.5-5.0); Albumin/Globulin Ratio 1.2 (1.2-2.2); Alkaline Phosphatase 125 U/L (46-116); Anion Gap 14 (7-16); Aspartate Amino Transferase 26 U/L (0-34); BUN/Creatinine Ratio 17 Ratio (12-20); Bilirubin,Total 0.8 mg/dL (0.3-1.2); Blood Urea Nitrogen 26 mg/dL (9-23); Calcium 9.4 mg/dL (8.3-10.6); Calcium (Corrected) 9.4 mg/dL (8.5-10.1); Carbon Dioxide 22.4 mMol/L (20.0-31.0); Chloride 102 mMol/L (98-107); Creatinine (Component) 1.5 mg/dL (0.6-1.3); Estimated Creatinine Clearance 68.6 mL/min (>60); Globulin 3.7 gm/dL (2.3-3.5); Glucose 167 mg/dL (74-106); Magnesium 2.4 mg/dL (1.6-2.6); Osmolality,Calculated 284 (275-295); Phosphorous 4.5 mg/dL (2.4-5.1); Potassium 4.6 mMol/L (3.4-5.1); Sodium 138 mMol/L (136-145); Total Protein 8.0 gm/dL (5.7-8.2); eGFR 54 See Note
--- NOTE | 2025-07-10 07:00 | XR_ITS ---
Examination: Ultrasound-guided needle placement left basilic vein. Dual-lumen central line placement (PICC line). Fluoroscopy AP chest, portable, single view Exam date and time: July 10, 2025, 0907 hours INDICATIONS: Need for long-term intravenous antibiotic therapy for osteomyelitis A timeout was completed verifying correct patient, procedure, site, positioning Informed consent provided Technique: The patient's site was prepped and draped in sterile fashion. Maximum Sterile Barrier Technique used including cap, mask, sterile gown, sterile gloves, and sterile full body drape. If ultrasound technique used: sterile gel and sterile probe covers. Hand Hygiene performed using proper scrub, soap and water, or alcohol-based hand rub. Ultrasound site right portable apparatus utilized to confirm patency of the basilic vein Utilizing ultrasonographic guidance successful 21-gauge needle puncture into the left basilic vein Ultrasound images recorded and stored. 5 cc 1% lidocaine administered for local anesthetic. Successful micropuncture with a 21-gauge needle is performed. 0.18 wire guide is then introduced into the SVC under fluoroscopic guidance. Dual-lumen catheter dilator is then introduced, followed by the catheter in the SVC and proper position under fluoroscopic guidance. Successful aspiration of blood and flushing with heparinized saline is then performed in the 2 venous limbs. The catheter sutured in place. Findings: Under fluoroscopy, the tip of the catheter is in good position in the vena cava. Portable chest x-ray, post line placement is ordered. Estimated blood loss 3 cc The patient tolerated the procedure well and was in stable and satisfactory condition at completion of the procedure Impression: Successful ultrasound-guided needle placement left basilic vein Successful placement of dual lumen central line, percutaneous Fluoroscopy 0.2-minute radiation dose 2.06 mGy 1 spot fluoroscopic chest. AP chest completion procedure demonstrates satisfactory position central line. May use central line.
[2025-07-10] MEDS: INSULIN LISPRO (AdmeLOG) 1 UNIT/0.01 ML UNIT 6 UNIT SC ×2 (07:26→13:09)
[2025-07-10] MEDS: INSULIN LISPRO (AdmeLOG) 1 UNIT/0.01 ML UNIT SC ×2 (07:27→13:08)
[2025-07-10] MEDS: AMIODARONE HCL 200 MG TABLET PO (08:16)
[2025-07-10] MEDS: METOPROLOL SUCCINATE XL 25 MG TABCR 200 MG PO (08:16)
[2025-07-10] MEDS: FAMOTIDINE 20 MG TABLET PO (08:16)
[2025-07-10] MEDS: ATORVASTATIN CALCIUM 20 MG TABLET 40 MG PO (08:16)
[2025-07-10] MEDS: DOXYCYCLINE 100 MG TABLET PO (08:17)
[2025-07-10] MEDS: cefTRIAXone 2 GM in SODIUM CHLORIDE 0.9% (Popper) 50 ML IV (08:17)
[2025-07-10] MEDS: INSULIN DEGLUDEC 5 UNIT/0.05 ML (PER 5 UNITS) 20 UNIT SC (08:17)
[2025-07-10] MEDS: DOCUSATE SOD 100 MG CAPSULE PO (08:17)
[2025-07-10] MEDS: ASPIRIN EC 81 MG TABEC PO (08:17)
[2025-07-10] MEDS: LIDOCAINE INJ PF 1% 30 ML VIAL INFL (09:49)
[2025-07-10] MEDS: HEPARIN SOD LOCK SYR 100 UNIT/ML 500 UNIT STFIELD (09:49)
--- NOTE | 2025-07-10 10:02 | PC.NURSE ---
1002 patient is awake, alert, breathing unlabored, s/p picc line insertion to left arm, Patient transferred back to room 274, report given to Karen LUNSFORD
--- NOTE | 2025-07-10 11:30 | PC.SS ---
SS follow up note; Taylor will deliver wheel chair at bedside, patient aware.
--- NOTE | 2025-07-10 12:40 | PC.SS ---
SS follow up note; SS contacted [facility] transportation. At the time they contacted [facility]. SS contacted [facility] and provided ETA for 4:30pm. SS updated patient and patient's nurse. Patient will discharge home today and Hannah will follow patient tomorrow morning.
--- NOTE | 2025-07-10 13:26 | PD.RESDS ---
Planned Discharge Date 07/10/25 DS: Providers Provider Date of admission: 07/06/25 18:05 Primary care physician: Rancho Bergman MD Admitting Provider: Mike Marie MD Attending Provider on Admission: De Larkin DO Consults: 07/06/25 18:17 Consult to Cardiology Routine Comment: Pacemaker delivered a shock at home Consulting Provider: Kevyn Man 07/06/25 18:24 Consult to General Surgery Stat Comment: Consulting Provider: Belem Garcia 07/07/25 01:12 Referral Nutritional Services Routine Comment: Referral Wound Care Routine Comment: 07/07/25 11:03 Referral OP Wound Healing Dept Routine Comment: 07/07/25 11:17 Consult to Infectious Diseases Routine Comment: guidance on antibiotics for osteomyelitis Consulting Provider: Bryant Barnett 07/09/25 14:39 Referral Physical Therapy Urgent Comment: Physician Instructions: Instructions: Patient has Right foot osteomyelitis. He is requesting a wheelchair Attending Provider on DC: Palak Hale MD Discharging Provider: Palak aHle MD DS: Diagnosis Problem List Completed Was Problem List Reviewed/Reconciled?: Yes Hospital Course Hospital Course Hospital course: Summary: 59-year-old male with history of A-fib with RVR, HFrEF (EF 35?40%), s/p ICD placement for cardiac arrest, CAD s/p CABG, type 2 diabetes mellitus, CKD, BPH, and hypertension who presented with ICD firing at 4AM and a painful right plantar foot ulcer (7 days duration). ER Course: In the ED, complains of a mild soreness sensation to his chest. Additionally complains of right lower extremity pain. States the pain began months ago though feels it was exacerbated today. States he is dealing with an infection to the right great toe that initially was being treated at the [facility]. However, states his PCP, Dr. Bergman, referred him to a new maintenance assistant weeks ago which he has yet to see. states they have been cleaning the wound at home and noticed the redness worsening days back which he took old antibiotics for, penicillin. Given Insulin 5U, Zosyn 3.375 gm x1 and Vanc 125mL/hr x1. Hospital Course: Admitted for ICD interrogation and diabetic foot secondary to osteomyelitis. Per cardiology, evaluated for recurrent ICD discharges (last at 4AM). ICD firing suspected to be secondary to infection/metabolic derangement. Clinically stable, monitored via telemetry, transitioned to PO amiodarone. Eliquis and Plavix held for upcoming PICC procedure, aspirin continued. Patient was diagnosed with osteomyelitis of the right foot (complicated by diabetic neuropathy). Treated with ceftriaxone 2g IV daily and doxycycline 100mg po BID per Dr. Barnett, infectious disease specialist. On 07/09, PICC placed was aborted due to pain; IR-guided PICC placement successful 07/10 AM. Podiatry and wound care follow-up planned; MRI deferred per general surgery, outpatient wound debridement scheduled. Outpatient IV antibiotics planned for 6 weeks post-discharge until 08/18.Through hospital stay, CKD (baseline Cr 1.7, current Cr 1.5, BUN 27); BPH treated with home med tamsulosin; hypertension monitored on telemetry and home meds to be resumed at discharge. Patient to follow up with Dr. Hendrickson, reservations manager. Home health ordered, patient hemodynamically stable, and discharged home safely. Instructions: -Please complete antibiotics for foot infection with Ceftriaxone 2 grams IV and Doycycline 100 mg twice daily orally until 08/18/2025. -After last dose of Ceftriaxone, please remove PICC line. -Weekly CBC, renal panel, and ESR labs. -Please continue Amiodarone 200 mg twice daily orally for your heart. -STOP Rosuvastatin and START Atorvastatin 40 mg once daily at night. -STOP Digoxin, Diltiazem, and Hydralazine -Please follow up with your reservations manager, Dr. Carrasco, within 1-2 weeks of discharge -Please follow up with your primary care provider within one week of discharge -If your symptoms worsen,please seek immediate medical attention and return to your nearest emergency room -If you do not have a primary care provider, you may follow up at the [facility] at [address], [place] [address], #Diabetic Foot secondary to osteomyelitis #Soft Tissue infection #DMT2 uncontrolled with hyperglycemia, improving #History of cardiac arrest s/p AICD placement with recurrent discharges #HFrHF #History of A-fib w RVR #CAD s/p CABG #Paroxysmal atrial fibrillation #Chronic Pain #CKD #BPH #HTN Case discussed with attending physician, Dr. Larkin, and co-resident, Dr. Yahaira Hale, DO PGY-1 Senior Resident Attestation: I have discussed the case with supervising physician and sports internship physician involved in the care of patient. I personally saw and examined patient and discussed the assessment and plan with the entire medical team, including attending. I agree with assessment and plan as documented above. - The patient's plan was discussed with attending Dr. Chaya Syed MD PGY2 Internal Medicine Status at Discharge Functional status at discharge: independent ambulation Overall status at discharge: patient is progressing back to baseline Time Spent with Patient Time attestation: Total time spent providing and/or coordinating discharge services: at least 30 minutes of care and coordination Time spent: Greater than 30 minutes Home Health Home Health Referral Orders: 07/08/25 16:36 Home Health Referral Routine Reason For Exam: IV Abx Home-Bound The patient must either because of illness or injury, need the aid of supportive devices such as crutches, canes, wheelchairs, and walkers; the use of special transportation; or the assistance of another person in order to leave their place of residence; OR have a condition such that leaving his or her home is medically contraindicated. In addition, the patient also meets the following criteria: patient is normally unable to leave the home and leaving home requires considerable taxing effort. Addendum to Home Health Certification Practitioner's Certification: I certify that the patient has been under my care in the hospital and the care of attending physician (see below). We had a [id number] encounter on (see date below). My clinical findings indicate that the patient is home bound per the above criteria and the Home Health Services noted in these orders are medically necessary. The primary reason for the hnme-lu-ljaf encounter is related to the fact that the patient requires home health services. Date Certifying [id number] Physician Encounter: 07/06/25 Physician's Name who will Assume Oversight for Services: Rancho Bergman (PCP) Physician's Phone No.who will Assume Oversight for Service: QUOTER - Community Resources: No PT to Evaluate: No PT to evaluate and provide a treatmnet plan to increase patient's mobility and strength. Wound Care: No IV Therapy: Will need qweekly ESR, CBC, and BMP while on Abx IV Medication: Ceftriaxone IV Dose: 2gm IV Frequency: Daily IV Stop Date: 08/18/25 Discontinue PICC Line Once Treatment Complete: Yes RN Safety Evaluation: Yes RN to evaluate and create a plan of care that will produce positive outcomes. Palliative Treatment: No Palliative treatment and evaluate the need for hospice. Home Health Aide - Personal Care: No Home Health Aide to assist with any ADL's. Exam Vital Signs Temp Pulse Resp BP Pulse Ox O2 Del Method O2 Flow Rate 98.0 F 107 H 19 134/95 H 98 Room Air 1 07/10/25 12:00 07/10/25 12:00 07/10/25 12:00 07/10/25 12:00 07/10/25 12:00 07/10/25 12:00 07/09/25 00:00 Narrative Exam General: No acute distress, well nourished Eye: PERRL, EOMI, normal conjunctiva, no scleral icterus HENT: Normocephalic, atraumatic, normal hearing, pink and moist mucous membranes, no oral lesions in mouth, throat shows no erythema Neck: Supple, non-tender, no JVD, no lymphadenopathy Lungs: Clear to auscultation bilaterally, non-labored respirations, symmetric chest rise, no use of accessory muscles Heart: Defibrillator noted on right-side of chest. Normal S1 and S2, no S3 or S4 appreciated. Normal rate and regular rhythm, no murmurs, rubs gallops, or edema. Peripheral pulses DP 2+ popliteal pulse 2+, capillary refill brisk distally Abdomen: Soft, non-tender, non-distended, normal bowel sounds. No guarding or rebound tenderness. Musculoskeletal: Normal range of motion and strength. Skin: Skin is warm, dry, no rashes or lesions. Foot: Right foot has a white bandage. Ankle shows less erythema compared to yesterday. Left foot appears well. DP 2+ b/l. Neurologic: Alert, awake and oriented x3. CN II-XII grossly intact. No focal neuro deficits. No signs of meningeal irritation noted. Psychiatric: Cooperative, appropriate mood and affect Discharge Plan Plan Patient Disposition: Home w/HOME HEALTH Patient condition on transfer: Stable Care Plan Goals: Instructions: -Please complete antibiotics for foot infection with Ceftriaxone 2 grams IV and Doycycline 100 mg twice daily orally until 08/18/2025. -After last dose of Ceftriaxone, please remove PICC line. -Weekly CBC, renal panel, and ESR labs. -Please continue Amiodarone 200 mg twice daily orally for your heart. -STOP Rosuvastatin and START Atorvastatin 40 mg once daily at night. -STOP Digoxin, Diltiazem, and Hydralazine -Please follow up with your reservations manager, Dr. Carrasco, within 1-2 weeks of discharge -Please follow up with your primary care provider within one week of discharge -If your symptoms worsen,please seek immediate medical attention and return to your nearest emergency room -If you do not have a primary care provider, you may follow up at the [facility] at [address] [place] [address] [address], [place] [address], Prescriptions/Referrals Prescriptions/Med Rec: New amiodarone [Pacerone] 200 mg Tablet 200 mg PO BID 90 Days Qty: 180 0RF atorvastatin [Lipitor] 40 mg tablet 40 mg PO QDAY 30 Days Qty: 30 0RF Rx Instructions: started inpatient doxycycline hyclate 100 mg tablet 100 mg PO BID 40 Days Qty: 80 0RF ceftriaxone 2 gram recon soln 2 g IV QDAY 40 Days Rx Instructions: Please continue until 08/18/2025 insulin degludec 100 unit/mL solution 20 unit subcut QDAY 90 Days Qty: 18 0RF (DME) FreeStyle Bernardo 3 Plus Sensor Device See Rx Instructions .Route Qty: 1 3RF Rx Instructions: As directed (DME) FreeStyle Bernardo 3 Bejou Misc See Rx Instructions .Route Qty: 1 1RF Rx Instructions: As directed (DME) pen needle, diabetic [Pen Needle] 29 gauge x 1/2 needle See Rx Instructions .Route Qty: 100 0RF Rx Instructions: As directed aspirin 81 mg tablet 81 mg PO QDAY 60 Days Qty: 60 0RF Continued Eliquis 5 mg Tablet 5 mg PO QDAY furosemide [Lasix] 40 mg tablet 40 mg PO QAM Qty: 3 0RF lorazepam [Ativan] 1 mg tablet 1 mg PO BID PRN (Reason: anxiety) Qty: 14 0RF sacubitril-valsartan 24-26 mg tablet 1 tab PO BID Patient Comments: TAKE 1 TABLET BY MOUTH TWICE A DAY Ozempic 1 mg/dose (4 mg/3 mL) pen injector 1 mg SUBCUT .WEEKLY Patient Comments: INJECT 1 MG SUBCUTANEOUSLY WEEKLY metoprolol succinate 200 mg tablet extended release 24 hr 200 mg PO .QD Patient Comments: TAKE 1 TABLET BY MOUTH EVERY DAY methocarbamol 500 mg tablet 500 mg PO Q8H PRN (Reason: muscle spasm) Patient Comments: 500 MG ORALLY EVERY 8 HOURS NEEDED FOR MUSCLE SPASM Discontinued hydrocodone-acetaminophen [Rye] 10-325 mg tablet 1 tab PO Q6H MDD 4g Acetaminophen PRN (Reason: pain) Qty: 20 0RF hydralazine 25 mg tablet 25 mg PO TID Patient Comments: TAKE 1 TABLET BY MOUTH THREE TIMES A DAY WITH FOOD FOR 30 DAYS clopidogrel 75 mg tablet 75 mg PO QDAY Patient Comments: TAKE 1 TABLET BY MOUTH EVERY DAY FOR 30 DAYS lorazepam [Ativan] 1 mg tablet 1 mg PO BID PRN (Reason: anxiety) Qty: 10 0RF rosuvastatin 10 mg tablet 10 mg PO .QD Patient Comments: TAKE 1 TABLET BY MOUTH EVERY DAY diltiazem HCl 360 mg capsule,extended release 24hr 360 mg PO .QD Patient Comments: TAKE 1 CAPSULE BY MOUTH EVERY DAY FOR 3 MONTHS. Rx BOTTLE FILLED 04/07/2025 digoxin 125 mcg (0.125 mg) tablet 125 mcg PO .QD Patient Comments: TAKE 1 TABLET BY MOUTH EVERY DAY cefdinir 300 mg capsule 300 mg PO Q12H Patient Comments: TAKE 1 CAPSULE BY MOUTH EVERY 12 HOURS FOR 10 DAYS. Rx bottle filled 05/14/2025 Referrals: Ayla Hendrickson MD [Referring Provider] Мария Rivas MD [Physician, Wound Care] Pacheco (PCP)Rancho MD [Primary Care Provider, Family Practice] Outpatient Orders (i.e. Home Health, Labs, Imaging): CBC (Routine) Location: None Selected Ordered By: Leela Syed Sed Rate (ESR) (Routine) Location: None Selected Ordered By: Leela Syed Renal Function Panel (Routine) Location: None Selected Ordered By: Leela Syed Patient/Caregiver Discharge Instructions Discharge Activity: as per physical therapy Other Discharge Activity Instructions:: - Follow up at [facility], [address] [place] [address]. Call [phone] for appointment. -Wound care to right foot: May remove dressing, shower than reapply dressing. Wash hands with soap and water. Wash wound with wound cleanser spray and pat dry. Wash hands again, Cover with dry gauze pad and secure with gauze wrap. Change daily and as needed for falling off. If active bleeding occurs, apply tight dressing and return to MD or ER. ? Notify primary doctor or return to Emergency Room if any of the following: ? Fever above 100.6? F. ? Increased pain ? Increase swelling ? Red streaks around your wound ? Drainage becomes foul smelling or changes color ? The wound is larger or deeper ? The wound looks dried out or dark ? Bleeding that does not stop with holding pressure- Education Materials: Glargine Insulin Pen 100 IU/mL, CGM, Nutrition for Wound Healing, Diabetes and Heart Disease, Diabetes Treat Severe Foot Infecs, Diabetes: The Benefits of Exercise, Osteomyelitis Dc, Changing Dressing Dc Print Language: Frisian Stand Alone Forms: [employer] Award Info., Patient Portal Info Letter Discharge Order Discharge Orders: Discharge (Routine); Ordered 07/10/25 Ordered By: Dexter Meneses Quality Discharge Quality Measures VTE prophylaxis Attestestation Attestation I have discussed and was present for the essential components of the discharge history, physical examination, diagnosis, and discharge treatment plan with the resident. I agree with the patient's discharge care as documented by the resident and amended herein by me. Elliot Larkin DO. The patient understood all discharge instructions, all questions were answered satisfactorily. The patient was instructed to return to the Emergency Department is symptoms worsened or persisted. Patient will need to follow-up with his reservations manager within 7 to 10 days of discharge. Patient will also be on IV ceftriaxone 2 g daily and doxycycline 100 mg twice daily through 08/18 for osteomyelitis right foot. The patient understood all instructions, the patient was stable, afebrile, tolerating p.o. intake at time of discharge home. Although this document has been carefully reviewed, there may still be some phonetic and other typographical errors. These errors are purely grammatical due to imperfections in the software program and should not be construed in any way to compromise the substance of the patient's medical care during this visit. Time Spent on discharge: 32 minutes
[2025-07-10 15:48] LABS: RA Screen Negative (Negative)
== END 2025-07-10 16:44 | disposition home health service (06) | DRG 344 ==
LOC: SERX 18:03 → SERHOLD 18:18 → S2NX 23:48
PROVIDERS: Admitting Provider Student in an Organized Health Care Education/Training Program; Emergency Provider Emergency Medicine; PCP Family Medicine; Visit Provider Student in an Organized Health Care Education/Training Program
DX: E11.69 Type 2 diabetes mellitus with other specified complication (principal); I48.0 Paroxysmal atrial fibrillation; I25.10 Atherosclerotic heart disease of native coronary artery without angina pectoris; Z95.1 Presence of aortocoronary bypass graft; I13.0 Hypertensive heart and chronic kidney disease with heart failure and stage 1 through stage 4 chronic kidney disease, or unspecified chronic kidney disease; I50.22 Chronic systolic (congestive) heart failure; N18.9 Chronic kidney disease, unspecified; E78.5 Hyperlipidemia, unspecified; E11.22 Type 2 diabetes mellitus with diabetic chronic kidney disease; Z95.810 Presence of automatic (implantable) cardiac defibrillator; Z86.74 Personal history of sudden cardiac arrest; L08.9 Local infection of the skin and subcutaneous tissue, unspecified; N40.0 Benign prostatic hyperplasia without lower urinary tract symptoms; M86.8X7 Other osteomyelitis, ankle and foot; E87.20 Acidosis, unspecified; L84 Corns and callosities; E11.65 Type 2 diabetes mellitus with hyperglycemia; Z79.899 Other long term (current) drug therapy; G89.29 Other chronic pain; E11.40 Type 2 diabetes mellitus with diabetic neuropathy, unspecified; G47.33 Obstructive sleep apnea (adult) (pediatric); Z88.8 Allergy status to other drugs, medicaments and biological substances; I25.2 Old myocardial infarction; Z53.9 Procedure and treatment not carried out, unspecified reason; Z79.01 Long term (current) use of anticoagulants; Z79.02 Long term (current) use of antithrombotics/antiplatelets; Z79.4 Long term (current) use of insulin; Z79.82 Long term (current) use of aspirin
CPT/HCPCS: 36415; 71045; 73630; 80053; 80061; 80202; 80307; 81001; 82010; 82803; 83036; 83605; 83690; 83735; 83880; 84100; 84145; 84443; 84484; 85025; 85610; 85652; 85730; 86140; 86430; 87040; 93005; 93306; 96361; 96365; 96366; 97162; 99284; A4649; C1751; C1894; J0283; J0696; J1642; J1650; J1815; J2543; J3373; J3475; J3490; J7050; J7120; A9270

== ENCOUNTER 2025-07-30 10:40 | Emergency (ER) | payer MEDICAID, SELFPAY ==
[2025-07-30 10:43] VITALS: BP 148/105; PULSE 100; RESP 20; TEMP 36.5; O2SAT 99; BMI 28.2
--- NOTE | 2025-07-30 10:50 | EKG_ITS ---
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
--- NOTE | 2025-07-30 10:51 | XR_ITS ---
Examination: CT brain head without contrast. 2-D sagittal coronal reconstructions Date and time of exam: July 30, 2025, 1136 hours, comparison June 21, 2025 INDICATIONS: Syncopal episode today, patient fell with injury to the head, head pain CTDI: vol (mGy): 56.3 DLP: (mGycm): 116 Technique: Multiple CT axial sections of the brain have been obtained, 5 mm slice thickness. Contrast has not been administered. 2-D sagittal, coronal reconstructions have been obtained Low dose protocols were performed. One or more of the following dose reduction techniques were used; automated exposure control, adjustment of the mA and/or KV according to patient size, use of iterative reconstruction technique. Findings: No significant ventricular enlargement. Intra-axial or extra-axial hemorrhage density is not seen. No mass effect or midline shift Basal cisterns are not remarkable. Fourth ventricle is midline. Cranial vault intact. Impression: Negative for acute hemorrhage, mass effect or midline shift
[2025-07-30 10:53] VITALS: PULSE 100; RESP 18; O2SAT 100
[2025-07-30 11:03] VITALS: PULSE 102; RESP 96
[2025-07-30] MEDS: SODIUM CHLORIDE 0.9% 1000 ML 1,000 ML 50 ML IV (11:25)
--- NOTE | 2025-07-30 11:30 | PD.EDSYNC ---
ED Syncope RME/HPI General Chief Complaint: Syncope / Near Syncope Stated Complaint: SYNCOPE Time Seen by Provider: 07/30/25 10:49 Arrival date/time: 07/30/25 10:40 Limitations: no limitations RME / HPI RME / HPI narrative: 59 year old male with history of atrial fibrillation, CHF, CAD s/p CABG, s/p ICD placement, hypertension, diabetes, CKD presents to the ED BIBA from home for evaluation of possible syncopal episode today. States he woke up to his glucose monitor alarming and glucose 69. States he ate a candy bar and next thing he recalls is waking on the floor. In the ED, he does not have any other complaints. Related Data Home Medications ?Medication ?Instructions ?Recorded ?Confirmed apixaban 5 mg tablet (Eliquis) 5 mg PO QDAY 09/19/23 07/07/25 metoprolol succinate 200 mg 200 mg PO .QD 07/07/25 07/07/25 tablet,extended release 24 hr sacubitril 24 mg-valsartan 26 mg 1 tab PO BID 07/07/25 07/07/25 tablet semaglutide 1 mg/dose (4 mg/3 mL) 1 mg subcut .WEEKLY 07/07/25 07/07/25 subcutaneous pen injector (Ozempic) methocarbamol 500 mg tablet 500 mg PO Q8H PRN muscle spasm 07/10/25 07/10/25 Previous Rx's ?Medication ?Instructions ?Recorded furosemide 40 mg tablet (Lasix) 40 mg PO QAM #3 tabs 02/18/24 lorazepam 1 mg tablet (Ativan) 1 mg PO BID PRN anxiety #14 tabs 06/21/25 amiodarone 200 mg tablet (Pacerone) 200 mg PO BID 3 months #180 tabs 07/09/25 aspirin 81 mg tablet 81 mg PO QDAY 2 months #60 tabs 07/09/25 atorvastatin 40 mg tablet (Lipitor) 40 mg PO QDAY Hyperlipidemia 1 07/09/25 month #30 tabs blood-glucose sensor (FreeStyle #1 ea 07/09/25 Bernardo 3 Plus Sensor device) blood-glucose,networking administrator,cont #1 ea 07/09/25 (FreeStyle Bernardo 3 [place]) ceftriaxone 2 gram intravenous 2 g IV QDAY 40 days 10/23/25 solution doxycycline hyclate 100 mg tablet 100 mg PO BID Osteomyelitis 40 07/09/25 days #80 tabs insulin degludec 100 unit/mL 20 unit (0.2 mL) subcut QDAY 07/09/25 subcutaneous solution Diabetes Mellitus 3 months #18 mL pen needle, diabetic 29 gauge x #100 ea 07/09/25 1/2 (Pen Needle) Allergies Allergy/AdvReac Type Severity Reaction Status Date / Time clonidine Allergy Severe SWELLING Verified 07/06/25 12:06 nut - unspecified Allergy Severe Swelling Verified 07/06/25 12:06 Review of Systems Review of Systems Systems Reviewed: All systems reviewed, normal except as documented Past Medical History Past Medical History NEUROLOGIC: Positive Meningitis CARDIAC: Positive Cardiac Disorders, Myocardial Infarction, Atrial Fibrillation, Coronary Artery Disease, Peripheral Vascular Disease, Hypercholesterolemia, Congestive Heart Failure and Hypertension RESPIRATORY: Positive Pneumonia GASTROINTESTINAL: Positive Gastrointestinal Bleed GENITOURINARY: Positive Genitourinary Disorders and Kidney Stones MUSCULOSKELETAL: Positive Musculoskeletal Disorders, Degenerative Disk Disease and Osteomyelitis ENDOCRINE: Positive Endocrine Disorders and Diabetes Mellitus Type 2 OTHER HISTORY: Positive MRSA Family History FAMILY HISTORY: Positive Family Cancer Surgical History SURGICAL: Positive Cardiac Surgery, Open Heart Surgery, Coronary Artery Bypass Graft, Pacemaker and Auto Implanted Cardiovert Defib Social History SMOKING STATUS: Former smoker SECOND HAND EXPOSURE: Yes SUBSTANCE USE: marijuana, crack/cocaine and methamphetamine ED Exam General Limitations: Present no limitations General appearance: Present alert and anxious Head Head exam: Present normocephalic and other (abrasion right confucianist with mild edema ) Eye Eye exam: Present normal appearance, PERRL and EOMI ENT ENT exam: Present normal exam, normal oropharynx and mucous membranes moist Neck Neck exam: Present normal inspection, full ROM and trachea midline Chest Chest inspection: Present normal inspection and symmetric chest wall rise Respiratory Respiratory exam: Present normal lung sounds bilaterally Cardiovascular Cardiovascular exam: Present normal rhythm, tachycardia and normal heart sounds Abdominal Exam Abdominal exam: Present soft and normal bowel sounds Extremities Exam Extremities exam: Present normal inspection and full ROM Back Exam Back exam: Present normal inspection and full ROM Neurological Exam Neurological exam: Present alert, oriented X3 and CN II-XII intact Psychiatric Psychiatric exam: Present anxious Skin Skin exam: Present warm, dry, intact and normal color Course Quality Measures none Orders Category Date Time Status Radioisotope Technician STAT Care 07/30/25 10:50 Active EKG (ED ONLY) *Do not use* NOW Care 07/30/25 10:50 Completed Insert IV STAT Care 07/30/25 10:[address] head/brain wo con Stat Exams 07/30/25 10:51 Completed EKG (ED Only) Stat Exams 07/30/25 10:50 Draft CBC Stat Lab 07/30/25 11:16 Completed Comprehensive Metabolic Panel Stat Lab 07/30/25 11:16 Completed Partial Thromboplastin Time Stat Lab 07/30/25 11:16 Completed Prothrombin Time with INR Stat Lab 07/30/25 11:16 Completed Troponin I Stat Lab 07/30/25 11:16 Completed Urinalysis, C/S if Indicated Stat Lab 07/30/25 14:25 Completed LORazepam [Ativan Inj] Med 07/30/25 14:41 Discontinued 1 mg IVP X1 ONE Metoprolol Tartrate Inj [Lopressor Inj] Med 07/30/25 14:03 Discontinued 5 mg IVP X1 ONE Sodium Chloride 0.9% 1000 ml [Ns] 1,000 ml Med 07/30/25 10:50 Active IV 50 mls/hr Oxygen Delivery NOW RT 07/30/25 10:50 Active Vital Signs Vital signs: Vital Signs Temperature 97.7 F 07/30/25 10:43 Pulse Rate 100 07/30/25 10:43 Respiratory Rate 20 07/30/25 10:43 Blood Pressure 148/105 H 07/30/25 10:43 Pulse Oximetry (%) 99 07/30/25 10:43 Oxygen Delivery Method Room Air 07/30/25 10:43 Pulse ox is 99% on room air which is adequate. Syncope MDM Narrative MDM Narrative:: Ladan Dewey am scribing for and in the presence of Dr. Ny. Patient data External records reviewed:: [facility] previous records and EMS form Clinical information provided by:: patient and EMS Social determinants that could affect healthcare access:: none Patient has the following chronic illnesses:: atrial fibrillation, CHF, CAD s/p CABG, s/p ICD placement, hypertension, diabetes, CKD How is presenting disease/condition affected by chronic disease/condition?: exacerbated by Evaluation data The following diagnostics were reviewed and interpreted by me:: lab results, radiology exam(s) and EKG tracing(s) (EKG @ 11:06h, interpreted by me, ventricular paced rhythm, rate 103. ) Lab and/or radiology exams considered but not ordered:: None Interpretation Summary: Ordering Physician: Trevon Ny MD Date of Service: 07/30/25 Procedure(s): CT head/brain wo con Accession Number(s): [id number] cc: Trevon Ny MD; David Andrew MD; Rancho Bergman MD~ Examination: CT brain head without contrast. 2-D sagittal coronal reconstructions Date and time of exam: July 30, 2025, 1136 hours, comparison June 21, 2025 INDICATIONS: Syncopal episode today, patient fell with injury to the head, head pain CTDI: vol (mGy): 56.3 DLP: (mGycm): 116 Technique: Multiple CT axial sections of the brain have been obtained, 5 mm slice thickness. Contrast has not been administered. 2-D sagittal, coronal reconstructions have been obtained Low dose protocols were performed. One or more of the following dose reduction techniques were used; automated exposure control, adjustment of the mA and/or KV according to patient size, use of iterative reconstruction technique. Findings: No significant ventricular enlargement. Intra-axial or extra-axial hemorrhage density is not seen. No mass effect or midline shift Basal cisterns are not remarkable. Fourth ventricle is midline. Cranial vault intact. Impression: Negative for acute hemorrhage, mass effect or midline shift Dictated By: David Andrew MD Signed By: <Electronically signed by David Andrew MD in [place]> 07/30/25 1149 Medications / Prescriptions Medications or Prescriptions considered but not ordered:: None Medication administrations:: Medication Administration History Sodium Chloride (Ns) 1,000 mls @ 50 mls/hr IV .Q20H ONE Stop: 07/31/25 06:49 Last Admin: 07/30/25 11: Dose: 50 mls/hr Documented By: CS Discontinued Medications Lorazepam (Lorazepam 2 Mg/Ml Vial) 1 mg IVP X1 ONE Stop: 07/30/25 14:42 Last Admin: 07/30/25 15:00 Dose: 1 mg Documented By: DO Metoprolol Tartrate (Metoprolol Tartrate Inj 1 Mg/Ml Amp 5 Ml) 5 mg IVP X1 ONE Stop: 07/30/25 14:04 Last Admin: 07/30/25 14:34 Dose: 5 mg Documented By: CS See above Consultations Consultation(s) initiated? (list below): No Diagnosis Syncope Differential Diagnosis: syncope due to orthostatic hypotension, vasovagal syncope, dehydration and other (hypoglycemia, syncope ) Most likely diagnosis given after review of the tests above:: Fall Closed head injury Pacemaker Syncope Hypoglycemia Admission Indicated Admission indicated?: not indicated Explain why admission is indicated or not indicated:: With no condition needing emergent intervention, there was no indication for admission. Admission Request Was there a request for admission?: No Disposition Plan Disposition Plan: Discharge Discharge Attestation Discharge Attestation: The patient and all family members were given an opportunity to ask questions and understood the discharge instructions. Discharge instructions specifically effects, indications for sooner follow up or return to the emergency department, and the expected course of current diagnosis. Patient condition: Stable Discharge Plan Plan Patient Disposition: HOME (Self Care) Patient condition on transfer: Stable Prescriptions/Referrals Prescriptions/Med Rec: No Action Eliquis 5 mg Tablet 5 mg PO QDAY furosemide [Lasix] 40 mg tablet 40 mg PO QAM Qty: 3 0RF lorazepam [Ativan] 1 mg tablet 1 mg PO BID PRN (Reason: anxiety) Qty: 14 0RF sacubitril-valsartan 24-26 mg tablet 1 tab PO BID Patient Comments: TAKE 1 TABLET BY MOUTH TWICE A DAY Ozempic 1 mg/dose (4 mg/3 mL) pen injector 1 mg SUBCUT .WEEKLY Patient Comments: INJECT 1 MG SUBCUTANEOUSLY WEEKLY metoprolol succinate 200 mg tablet extended release 24 hr 200 mg PO .QD Patient Comments: TAKE 1 TABLET BY MOUTH EVERY DAY amiodarone [Pacerone] 200 mg Tablet 200 mg PO BID 90 Days Qty: 180 0RF atorvastatin [Lipitor] 40 mg tablet 40 mg PO QDAY 30 Days Qty: 30 0RF Rx Instructions: started inpatient doxycycline hyclate 100 mg tablet 100 mg PO BID 40 Days Qty: 80 0RF ceftriaxone 2 gram recon soln 2 g IV QDAY 40 Days Rx Instructions: Please continue until 08/18/2025 insulin degludec 100 unit/mL solution 20 unit subcut QDAY 90 Days Qty: 18 0RF (DME) FreeStyle Bernardo 3 Plus Sensor Device See Rx Instructions .Route Qty: 1 3RF Rx Instructions: As directed (DME) FreeStyle Bernardo 3 [place] Misc See Rx Instructions .Route Qty: 1 1RF Rx Instructions: As directed (DME) pen needle, diabetic [Pen Needle] 29 gauge x 1/2 needle See Rx Instructions .Route Qty: 100 0RF Rx Instructions: As directed aspirin 81 mg tablet 81 mg PO QDAY 60 Days Qty: 60 0RF methocarbamol 500 mg tablet 500 mg PO Q8H PRN (Reason: muscle spasm) Patient Comments: 500 MG ORALLY EVERY 8 HOURS NEEDED FOR MUSCLE SPASM Referrals: Pacheco (PCP),MD Rancho [Primary Care Provider, Family Practice] - In 1 week Problem List Clinical Impression: Fall, Closed head injury, Pacemaker, Syncope, Hypoglycemia Patient/Caregiver Discharge Instructions Education Materials: Causes of Syncope, Preventing Falls Moving Safely ..., Preventing Falls: Staying Active, ED Head Injury (Adult) Additional Instructions: Follow-up with your doctor in 1 to 2 days. Take your medications as prescribed. Please move cautiously for the next week as you have had a closed head injury and this may cause some dizziness. Print Language: Albanian Stand Alone Forms: [employer] Award Info., Patient Portal Info Letter
[2025-07-30 11:58] LABS: Alanine Aminotransferase 24 U/L (10-49); Albumin, Serum 4.0 gm/dL (3.5-5.0); Albumin/Globulin Ratio 1.1 (1.2-2.2); Alkaline Phosphatase 105 U/L (46-116); Anion Gap 10 (7-16); Aspartate Amino Transferase 21 U/L (0-34); BUN/Creatinine Ratio 18 Ratio (12-20); Bilirubin,Total 0.4 mg/dL (0.3-1.2); Blood Urea Nitrogen 29 mg/dL (9-23); Calcium 9.3 mg/dL (8.3-10.6); Calcium (Corrected) 9.3 mg/dL (8.5-10.1); Carbon Dioxide 25.7 mMol/L (20.0-31.0); Chloride 105 mMol/L (98-107); Creatinine (Component) 1.6 mg/dL (0.6-1.3); Estimated Creatinine Clearance 64.3 mL/min (>60); Globulin 3.7 gm/dL (2.3-3.5); Glucose 195 mg/dL (74-106); Osmolality,Calculated 292 (275-295); Potassium 4.1 mMol/L (3.4-5.1); Sodium 141 mMol/L (136-145); Total Protein 7.7 gm/dL (5.7-8.2); Troponin I < 0.020 ng/mL (0.0-0.045); eGFR 50 See Note
[2025-07-30 12:58] VITALS: BP 131/91; PULSE 100; RESP 14; TEMP 36.8; O2SAT 100
[2025-07-30 13:18] LABS: Basophils # (Auto) 0.1 Thou/mm3 (0.0-0.2); Basophils % (Auto) 1 % (0-2.5); Eosinophils # (Auto) 0.3 Thou/mm3 (0.0-0.5); Eosinophils % (Auto) 3 % (0-10); Hematocrit 34.7 % (41.0-53.0); Hemoglobin 11.4 g/dL (13.5-16.0); Immature Granulocytes Auto 0.04 Thou/mm3 (0.00-0.00); Lymphocytes # (Auto) 1.3 Thou/mm3 (1.0-4.8); Lymphocytes % (Auto) 12 % (10-50); Mean Corpuscular HGB Conc 32.9 g/dl (31.0-37.0); Mean Corpuscular Hemoglobin 30.9 pg (25.0-35.0); Mean Corpuscular Volume 94 fL (80-100); Monocytes # (Auto) 0.7 Thou/mm3 (0.0-0.8); Monocytes % (Auto) 6 % (0-12); Neutrophils # (Auto) 8.6 Thou/mm3 (1.8-7.7); Neutrophils % (Auto) 78 % (37-80); Nucleated Red Blood Cell # 0.00 Thou/mm3 (0.00-0.00); Nucleated Red Blood Cell % 0 /100 WBC (0); Platelet Count 226 Thou/mm3 (140-440); RDW Standard Deviation 46.7 fL (35.1-43.9); Red Blood Count 3.69 Miln/mm3 (4.50-5.90); White Blood Count 11.0 Thou/mm3 (3.8-10.6)
[2025-07-30 14:04] LABS: INR 1.2 (0.9-1.3); Partial Thromboplastin Time 33.9 Seconds (22.0-36.0); Prothrombin Time 13.0 Seconds (9.0-12.2)
[2025-07-30 14:26] VITALS: BP 119/99
[2025-07-30 14:34] VITALS: BP 119/99; PULSE 102
[2025-07-30 14:34] LABS: Collection Type, Urine Clean Catch; Squamous Epithelial Cell,Urine 0 /hpf (0-5)
[2025-07-30] MEDS: METOPROLOL TARTRATE INJ 1 MG/ML AMP 5 ML 5 MG IVP (14:34)
[2025-07-30 14:40] LABS: Bilirubin,Urine Negative (Negative); Blood,Urine Trace (Negative); Clarity,Urine Clear (Clear/Hazy); Color,Urine Colorless (Lt Yel-Yel); Culture Indicated,Urine Not Indicated; Glucose, Urine Negative (Negative); Ketones,Urine Negative (Negative); Leukocyte Esterase,Urine Negative (Negative); Nitrite,Urine Negative (Negative); PH,Urine 6.0 (5.0-7.0); Protein,Urine 1+ (Neg - Trace); RBC,Urine 4 /hpf (0-3); Specific Gravity,Urine 1.012 (1.001-1.035); Urobilinogen,Urine Negative mg/dL (0.0-1.0); WBC,Urine < 1 /hpf (0-5)
[2025-07-30] MEDS: LORazepam 2 MG/ML VIAL 1 MG IVP (15:00)
== END 2025-07-30 17:28 | disposition home or self-care (01) ==
PROVIDERS: Emergency Provider Family Medicine; PCP Family Medicine
DX: S09.90XA Unspecified injury of head, initial encounter (principal); W19.XXXA Unspecified fall, initial encounter; Z79.01 Long term (current) use of anticoagulants; Z79.82 Long term (current) use of aspirin; E11.649 Type 2 diabetes mellitus with hypoglycemia without coma; E11.22 Type 2 diabetes mellitus with diabetic chronic kidney disease; I13.0 Hypertensive heart and chronic kidney disease with heart failure and stage 1 through stage 4 chronic kidney disease, or unspecified chronic kidney disease; I25.10 Atherosclerotic heart disease of native coronary artery without angina pectoris; I48.91 Unspecified atrial fibrillation; N18.9 Chronic kidney disease, unspecified; Z79.899 Other long term (current) drug therapy; Z95.1 Presence of aortocoronary bypass graft; Z95.810 Presence of automatic (implantable) cardiac defibrillator
CPT/HCPCS: 36415; 70450; 80053; 81001; 84484; 85025; 85610; 85730; 93005; 96374; 96375; 99284; J2060; J3490; J7030

== ENCOUNTER → 2025-08-10 | Outpatient (CLI) | payer OTHER, SELFPAY | END | disposition home or self-care (01) | PROVIDERS: PCP Family Medicine; Referring Provider Family Medicine; Visit Provider Student in an Organized Health Care Education/Training Program | DX: S91.301A Unspecified open wound, right foot, initial encounter (principal); S91.105A Unspecified open wound of left lesser toe(s) without damage to nail, initial encounter; S91.104A Unspecified open wound of right lesser toe(s) without damage to nail, initial encounter; X58.XXXA Exposure to other specified factors, initial encounter; M86.8X7 Other osteomyelitis, ankle and foot; E11.40 Type 2 diabetes mellitus with diabetic neuropathy, unspecified; I50.9 Heart failure, unspecified; Z79.4 Long term (current) use of insulin; Z79.84 Long term (current) use of oral hypoglycemic drugs; N18.6 End stage renal disease; Z87.891 Personal history of nicotine dependence | CPT/HCPCS: 97597; 99213; A9270; G0463 ==

== ENCOUNTER → 2025-08-31 | Outpatient (CLI) | payer OTHER, SELFPAY | END | disposition home or self-care (01) | LOC: SWHD 14:52 | PROVIDERS: PCP Family Medicine; Referring Provider Family Medicine; Visit Provider Student in an Organized Health Care Education/Training Program | DX: S91.301A Unspecified open wound, right foot, initial encounter (principal); S91.105A Unspecified open wound of left lesser toe(s) without damage to nail, initial encounter; S91.104A Unspecified open wound of right lesser toe(s) without damage to nail, initial encounter; I50.9 Heart failure, unspecified; X58.XXXA Exposure to other specified factors, initial encounter; E11.40 Type 2 diabetes mellitus with diabetic neuropathy, unspecified; Z79.4 Long term (current) use of insulin; Z79.84 Long term (current) use of oral hypoglycemic drugs; M86.8X7 Other osteomyelitis, ankle and foot; N18.6 End stage renal disease; Z87.891 Personal history of nicotine dependence | CPT/HCPCS: 97597; A9270 ==